=== PATIENT | female | born 1960 | race African-American/Black ===

== ENCOUNTER 2016-05-12 12:38 | Emergency (ER) | payer OTHER, MEDICAID ==
[~2016-05-12] VITALS: Ht 160 cm; Wt 131.1 kg
[~2016-05-12 12:38] MED LIST: ADVAIR 500-501 EACH INH; ALBUTEROL; AMOXICILLIN500 MG ORAL; BACITRACIN-POL1 EACH TOPIC; BACTRIM DS TAB1 EAC1 ORAL; BENAZEPRIL HCL10 MG ORAL; CEPHALEXIN500 MG PO; CYCLOBENZAPRINE10 MG ORAL; DIFLUCAN100 MG ORAL; ENALAPRIL; GLIPIZIDE; HYDROCODON-ACE1 EAC4 ORAL; IBUPROFEN600 MG ORAL; IBUPROFEN800 MG ORAL; KEFLEX500 MG ORAL; METFORMIN; MOTRIN; NORCO 5-325 TA1 EACH PO; NORCO 5/3251 TAB ORAL; PERCOCET 5-3251 EACH PO; PROMETHAZINE-C118 M1 ORAL; PROVENTIL; SEPTRA DS TABL1 EACH PO; SILVADENE CREAM50 GM TOP; SOMA350 MG PO; VICODIN
[2016-05-12 13:00] VITALS: BP 113/60
[2016-05-12] MEDS ORDERED: DuoNeb 0.5-3(2.5)mg/3ml neb HHN ONE (13:00)
[2016-05-12] MEDS ORDERED: NORCO 5-325 TA1 EAC1 ORAL (13:28)
[2016-05-12] MEDS ORDERED: PREDNISONE20 MG ORAL (13:28)
[2016-05-12] MEDS ORDERED: KEFLEX500 MG ORAL (13:28)
[2016-05-12 13:40] VITALS: BP 113/60
--- NOTE | 2016-05-15 21:09 | Emergency Room Report ---
History of Present Illness General Chief Complaint: Dyspnea/Respdistress Source: Patient Present Illness HPI The patient is a 55-year-old female presented after increased cough. The patient reports having prior history of asthma. She reports the previously been on steroids. She denies any fever. She had a nonproductive cough. She denied any shortness of breath. She takes albuterol. She reported having increased nasal congestion. She denied any hemoptysis. She had not been vomiting. Allergies: Coded Allergies: ERYTHROMYCIN BASE (Verified Allergy, Unknown, 11/19/15) Patient History Past Medical History: see triage record Last Menstrual Period: na Reviewed Nursing Documentation: PMH: Agreed, PSxH: Agreed Nursing Documentation-PMH Past Medical History: No History, Except For Hx Hypertension: Yes Hx Asthma: Yes Hx COPD: Yes Hx Diabetes: Yes Hx Neurological Problems: No Hx Cerebrovascular Accident: Yes Review of Systems All Other Systems: negative except mentioned in HPI Physical Exam Vital Signs Date Time Temp Pulse Resp B/P Pulse Ox O2 Delivery O2 Flow Rate FiO2 05/12/16 12:48 98.1 99 32 110/72 96 Room Air 05/12/16 12:50 21 Sp02 EP Interpretation: normal General Appearance: obese Eyes: bilateral eye normal inspection ENT: normal pharynx, uvula midline, other - enlarged tongue Neck: full range of motion, supple Respiratory: chest non-tender, wheezing Cardiovascular #1: normal peripheral pulses, regular rate, rhythm Gastrointestinal: non tender, soft Musculoskeletal: normal inspection, back normal Neurologic: alert, oriented x3, transit planning manager III-XII nml as tested Skin: normal color, no rash, warm/dry Medical Decision Making Diagnostic Impression: Primary Impression: Bronchitis ER Course Patient presented for cough.Differential diagnosis included but was not limited to bronchitis, pneumonia, pulmonary embolism, pericarditis, asthma, foreign body. The chest x-ray one view interpreted by me showed no evidence of pneumonia with normal cardiac size and normal mediastinum. The patient given breathing treatment with albuterol and Atrovent. She had improvement in her cough. The patient did not appear to have evidence of pneumonia. She started on prednisone . The patient is advised to follow up with primary care doctor in 1 -2 days. Patient is advised to return if any worsening condition or if any changes in status that are concerning. Last Vital Signs Date Time Temp Pulse Resp B/P Pulse Ox O2 Delivery O2 Flow Rate FiO2 05/12/16 13:40 98.1 18 113/60 99 Room Air 21 05/12/16 13:15 98 Status: improved Disposition: HOME, SELF-CARE Condition: Stable Scripts Prednisone* (PREDNISONE*) 20 Mg Tablet 40 MG ORAL DAILY, #10 TAB Prov: Ming Rai 05/12/16 Hydrocodone Bit/Acetaminophen 5-325* (NORCO 5-325 TABLET*) 1 Each Tablet 1 TAB ORAL Q4H Y for For Pain, #14 TAB Prov: Ming Rai 05/12/16 Cephalexin* (KEFLEX*) 500 Mg Capsule 500 MG ORAL Q6H, #28 CAP Prov: Ming Rai 05/12/16 Referrals: NON PHYSICIAN (PCP) Patient Instructions: Chronic Obstructive Pulmonary Disease Exacerbation Ming Rai May 15, 2016 21:09
--- NOTE | 2016-05-19 14:56 | Diagnostic Imaging Report ---
Indication: Cough Comparison: 03/16/13 A single view chest radiograph was obtained. Findings: No definite infiltrate or pulmonary vascular congestion identified. The heart is enlarged. The aorta is mildly enlarged consistent with atherosclerotic vascular disease. The bones are osteopenic. Impression: No acute disease
== END 2016-05-12 13:40 | disposition home or self-care (01) ==
LOC: EMR 13:35
DX: J20.9 Acute bronchitis, unspecified (principal); I10 Essential (primary) hypertension; E11.9 Type 2 diabetes mellitus without complications; J44.9 Chronic obstructive pulmonary disease, unspecified; J45.909 Unspecified asthma, uncomplicated; Z86.73 Personal history of transient ischemic attack (TIA), and cerebral infarction without residual deficits
CPT/HCPCS: 71010; 94640; 94664; 99283; J7620

== ENCOUNTER 2016-07-25 20:31 | Emergency (ER) | payer OTHER, MEDICAID ==
[~2016-07-25] VITALS: Ht 160 cm; Wt 127.0 kg
[~2016-07-25 20:31] MED LIST changes: +NORCO 5-325 TA1 EAC1 ORAL; +PREDNISONE20 MG ORAL
[2016-07-25 21:00] VITALS: BP 112/61
[2016-07-25] MEDS ORDERED: HYDROCODON-ACE1 EA15 ORAL (21:06)
--- NOTE | 2016-07-25 21:07 | Emergency Room Report ---
History of Present Illness General Chief Complaint: Pain Source: Patient Present Illness HPI Is a 55-year-old female with a history of diabetes and previous stroke which left her with left-sided weakness. She also has a long-standing history of osteoarthritis. She presents with chief complaint of left knee pain and hip pain. His been ongoing for over a year. She tried gabapentin and Motrin without much relief. Denies any trauma. Denies any fever or chills. Pain is 9 /10. Worse with walking. She try exercising but pain get worse. Denies any other trauma. No fever or chills. Allergies: Coded Allergies: ERYTHROMYCIN BASE (Verified Allergy, Unknown, 11/19/15) Patient History Past Medical History: see triage record, old chart reviewed, DM, COPD, CVA/TIA Past Surgical History: other Pertinent Family History: none Social History: Denies: smoking Now: No Immunizations: other Reviewed Nursing Documentation: PMH: Agreed, PSxH: Agreed Nursing Documentation-PMH Hx Hypertension: Yes Hx Asthma: Yes Hx COPD: Yes Hx Diabetes: Yes Hx Neurological Problems: No Hx Cerebrovascular Accident: Yes Review of Systems Eye: Denies: blurred vision, eye pain ENT: Denies: ear pain, nose congestion, throat swelling Respiratory: Denies: cough, shortness of breath Cardiovascular: Denies: chest pain, palpitations Gastrointestinal: Denies: abdominal pain, diarrhea, nausea, vomiting Musculoskeletal: Reports: joint pain, Denies: back pain Skin: Denies: rash Neurological: Denies: headache, numbness Endocrine: Denies: increased thirst, increased urine Hematologic/Lymphatic: Denies: easy bruising All Other Systems: negative except mentioned in HPI Physical Exam Vital Signs Date Time Temp Pulse Resp B/P Pulse Ox O2 Delivery O2 Flow Rate FiO2 07/25/16 20:40 97.3 88 15 104/51 95 Room Air vitals normal Sp02 EP Interpretation: reviewed, normal General Appearance: well appearing, no apparent distress, alert, obese Head: normocephalic, atraumatic Eyes: bilateral eye EOMI, bilateral eye PERRL ENT: hearing grossly normal, normal pharynx Neck: full range of motion, supple, no meningismus Respiratory: chest non-tender, lungs clear, normal breath sounds Cardiovascular #1: regular rate, rhythm, no murmur Gastrointestinal: normal bowel sounds, non tender, no mass, no organomegaly, no bruit, non-distended Musculoskeletal: back normal, gait/station normal, normal range of motion, other - Left knee with lateral tenderness. No deformity or effusion. Knee is stable. Full range of motion. Psychiatric: mood/affect normal Skin: warm/dry Medical Decision Making Diagnostic Impression: Primary Impression: Osteoarthritis of left knee Qualified Codes: M17.12 - Unilateral primary osteoarthritis, left knee Additional Impression: Morbid obesity with BMI of 45.0-49.9, adult ER Course Patient presents with osteoarthritis of her knee. She would benefit from weight loss. Discussed this with her. She understands. Is no evidence of septic joint or fracture dislocation. No evidence of DVT based on exam. We'll discharge home. Last Vital Signs Date Time Temp Pulse Resp B/P Pulse Ox O2 Delivery O2 Flow Rate FiO2 07/25/16 21:00 97.9 81 16 112/61 98 Room Air Status: improved Disposition: HOME, SELF-CARE Condition: Stable Scripts Hydrocodone/Acetaminophen 5-325* (HYDROCODONE/ACETAMINOPHEN 5-325*) 1 Each Tablet 1 TAB ORAL Q6H Y for For Pain, #30 TAB 0 Refills Prov: FRANKLIN BENAVIDES M.D. 07/25/16 Additional Instructions: Followup your Dr. in 7 days. Recommend weight loss. You may benefit from MRI and or orthopedic consultation. You may need a knee replacement. Return if symptom worsen. FRANKLIN BENAVIDES M.D. Jul 25, 2016 21:07
[2016-07-25 21:13] VITALS: BP 112/61
[2016-07-25] MEDS ORDERED: Norco 5mg/325mg tab ORAL ONE (21:15)
== END 2016-07-25 21:13 | disposition home or self-care (01) ==
LOC: EMR 21:00
DX: M17.12 Unilateral primary osteoarthritis, left knee (principal); E66.01 Morbid (severe) obesity due to excess calories; Z68.42 Body mass index [BMI] 45.0-49.9, adult; G81.94 Hemiplegia, unspecified affecting left nondominant side; M19.90 Unspecified osteoarthritis, unspecified site; M25.559 Pain in unspecified hip; Z88.8 Allergy status to other drugs, medicaments and biological substances; I10 Essential (primary) hypertension; J44.1 Chronic obstructive pulmonary disease with (acute) exacerbation; J45.909 Unspecified asthma, uncomplicated; E11.9 Type 2 diabetes mellitus without complications
CPT/HCPCS: 99283

== ENCOUNTER 2016-09-05 14:13 | Emergency (ER) | payer OTHER, MEDICAID ==
[~2016-09-05] VITALS: Ht 160 cm; Wt 131.1 kg
[~2016-09-05 14:13] MED LIST changes: +HYDROCODON-ACE1 EA15 ORAL
[2016-09-05] MEDS ORDERED: METFORMIN HCL1000 M1 ORAL (14:24)
[2016-09-05] MEDS ORDERED: SYMBICORT 80-10.2 G1 IH (14:24)
[2016-09-05] MEDS ORDERED: GABAPENTIN100 MG ORAL (14:24)
[2016-09-05] MEDS ORDERED: SIMVASTATIN5 MG ORAL (14:24)
[2016-09-05] MEDS ORDERED: Albuterol ud Inhalation HHN ONE (14:30)
[2016-09-05] MEDS ORDERED: Ipratropium 0.02% Inh Soln 2.5ml UD HHN ONE (14:30)
[2016-09-05] MEDS ORDERED: Aspirin Baby 81mg ORAL ONE (14:30)
--- NOTE | 2016-09-05 14:40 | Emergency Room Report ---
History of Present Illness General Chief Complaint: Dyspnea/Respdistress Source: Patient Present Illness HPI Patient is a 56-year-old female presented after increased difficulty breathing. Patient gradual onset of symptoms. Patient prior history of COPD. The patient noted increased productive cough. Patient reported having increased congestion. She reported having a increased sinus pressure. The patient reported having some increased leg swelling. Patient had been taking medications for blood pressure as well as a diuretic. She reported taking her inhalers which had helped intermittently . she denies any current fever Allergies: Coded Allergies: ERYTHROMYCIN BASE (Verified Allergy, Unknown, 11/19/15) Patient History : 7 Para: 7 Reviewed Nursing Documentation: PMH: Agreed, PSxH: Agreed Nursing Documentation-PMH Hx Hypertension: Yes Hx Asthma: Yes Hx COPD: Yes Hx Diabetes: Yes Hx Neurological Problems: No Hx Cerebrovascular Accident: Yes Review of Systems All Other Systems: negative except mentioned in HPI Physical Exam Vital Signs Date Time Temp Pulse Resp B/P Pulse Ox O2 Delivery O2 Flow Rate FiO2 09/05/16 14:16 98.1 88 22 95/66 96 Room Air Sp02 EP Interpretation: reviewed, normal General Appearance: obese Head: atraumatic ENT: normal ENT inspection, hearing grossly normal, normal voice Neck: normal inspection, full range of motion, supple, no bony tend Respiratory: normal inspection, no respiratory distress, no retraction, wheezing Cardiovascular #1: regular rate, rhythm, edema - trace Gastrointestinal: normal inspection, normal bowel sounds, non tender, soft, no guarding, no hernia Genitourinary: no CVA tenderness Musculoskeletal: normal inspection, back normal, normal range of motion Neurologic: normal inspection, alert, oriented x3, responsive, integration analyst III-XII nml as tested, speech normal Psychiatric: normal inspection, judgement/insight normal, mood/affect normal Skin: normal inspection, normal color, no rash Medical Decision Making Diagnostic Impression: Primary Impression: Pneumonia Additional Impression: COPD (chronic obstructive pulmonary disease) ER Course Patient presented for shortness of breath. Differential included but was not limited to anemia, pneumonia, pneumothorax, myocardial infarction, pericardial effusion, congestive heart failure, acidosis. Because of complexity of patient' s case laboratory testing and imaging studies were ordered. EKG interpreted by me showed normal sinus rhythm with a rate of [address] or T wave changes. Labs Test 09/05/16 15:10 White Blood Count 10.0 K/UL (4.8-10.8) Red Blood Count 4.94 M/UL (4.20-5.40) Hemoglobin 13.0 G/DL (12.0-16.0) Hematocrit 42.6 % (37.0-47.0) Mean Corpuscular Volume 86 FL (80-99) Mean Corpuscular Hemoglobin 26.4 PG (27.0-31.0) Mean Corpuscular Hemoglobin Concent 30.6 G/DL (32.0-36.0) Red Cell Distribution Width 14.0 % (11.6-14.8) Platelet Count 298 K/UL (150-450) Mean Platelet Volume 7.9 FL (6.5-10.1) Neutrophils (%) (Auto) 46.8 % (45.0-75.0) Lymphocytes (%) (Auto) 41.4 % (20.0-45.0) Monocytes (%) (Auto) 8.4 % (1.0-10.0) Eosinophils (%) (Auto) 1.9 % (0.0-3.0) Basophils (%) (Auto) 1.6 % (0.0-2.0) D-Dimer 408 ng/mL (<500) Sodium Level 140 mEQ/L (135-145) Potassium Level 4.2 mEQ/L (3.4-4.9) Chloride Level 96 mEQ/L (98-107) Carbon Dioxide Level 30 mEQ/L (20-30) Anion Gap 14 (5-15) Blood Urea Nitrogen 11 mg/dL (7-23) Creatinine 0.8 mg/dL (0.5-0.9) Estimat Glomerular Filtration Rate > 60 mL/min (>60) Glucose Level 294 mg/dL (74-106) Calcium Level 10.1 mg/dL (8.6-10.2) Total Bilirubin 0.2 mg/dL (0.0-1.2) Aspartate Amino Transf (AST/SGOT) 14 U/L (5-40) Alanine Aminotransferase (ALT/SGPT) 16 U/L (3-33) Alkaline Phosphatase 99 U/L (35-104) Total Creatine Kinase 73 U/L (26-140) Creatine Kinase MB 2.3 ng/mL (< 3.8) Creatine Kinase MB Relative Index 3.1 Troponin I < 0.30 ng/mL (<=0.30) Pro-B-Type Natriuretic Peptide 37 pg/mL (0-125) Total Protein 7.2 g/dL (6.6-8.7) Albumin 3.9 g/dL (3.5-5.2) Globulin 3.3 g/dL Albumin/Globulin Ratio 1.1 (1.0-2.7) Last Vital Signs Date Time Temp Pulse Resp B/P Pulse Ox O2 Delivery O2 Flow Rate FiO2 09/05/16 14:16 98.1 88 22 95/66 96 Room Air Status: improved Disposition: HOME, SELF-CARE Condition: Stable Scripts Albuterol Sulfate* (ALBUTEROL SULFATE MDI*) 8.5 Gm Hfa.aer.ad 2 PUFF INH Q6H, #1 EA 0 Refills Prov: Ming Rai 09/05/16 Amoxicillin* (AMOXIL*) 500 Mg Capsule 500 MG ORAL THREE TIMES A DAY, #21 CAP Prov: Ming Rai 09/05/16 Prednisone* (PREDNISONE*) 20 Mg Tablet 40 MG ORAL DAILY, #10 TAB Prov: Ming Rai 09/05/16 Ming Rai September 05, 2016 14:40
[2016-09-05] MEDS ORDERED: Solu-MEDROL 125mg Inj IVP ONE (15:00)
[2016-09-05] MEDS ORDERED: PREDNISONE20 MG ORAL (15:14)
[2016-09-05] MEDS ORDERED: AMOXICILLIN500 MG ORAL (15:14)
[2016-09-05] MEDS ORDERED: cefTRIAXone 1 GM in NS 55 ML IVPB ONE (15:15)
[2016-09-05 15:30] VITALS: BP 106/77
[2016-09-05 15:59] LABS: BASOPHILS % (AUTO) 1.6 % (0.0-2.0); EOSINOPHILS % (AUTO) 1.9 % (0.0-3.0); LYMPHOCYTES % (AUTO) 41.4 % (20.0-45.0); MEAN CORPUSCULAR HEMOGLOBIN 26.4 PG (27.0-31.0); MEAN CORPUSCULAR HGB CONC 30.6 G/DL (32.0-36.0); MEAN CORPUSCULAR VOLUME 86 FL (80-99); MEAN PLATELET VOLUME 7.9 FL (6.5-10.1); MONOCYTES % (AUTO) 8.4 % (1.0-10.0); NEUTROPHILS % (AUTO) 46.8 % (45.0-75.0); PLATELET COUNT 298 K/UL (150-450); RED BLOOD COUNT 4.94 M/UL (4.20-5.40)
[2016-09-05 16:10] LABS: TROPONIN I < 0.30 ng/mL (<=0.30)
[2016-09-05 16:13] LABS: ALANINE AMINOTRANSFERASE 16 U/L (3-33); ALBUMIN/GLOBULIN RATIO 1.1 (1.0-2.7); ANION GAP 14 (5-15); ASPARTATE AMINO TRANSFERASE 14 U/L (5-40); CALCIUM 10.1 mg/dL (8.6-10.2); CARBON DIOXIDE 30 mEQ/L (20-30); CHLORIDE 96 mEQ/L (98-107); CREATININE 0.8 mg/dL (0.5-0.9); GLOMERULAR FILTRATION RATE > 60 mL/min (>60); HEMOLYSIS 26; POTASSIUM 4.2 mEQ/L (3.4-4.9); SODIUM 140 mEQ/L (135-145); TOTAL PROTEIN 7.2 g/dL (6.6-8.7)
[2016-09-05 16:23] LABS: CKMB 2.3 ng/mL (< 3.8)
[2016-09-05 16:30] VITALS: BP 111/63
[2016-09-05] MEDS ORDERED: ALBUTEROL SULF8.5 GM INH (17:08)
[2016-09-05 19:36] VITALS: BP 108/67
--- NOTE | 2016-09-06 11:53 | Diagnostic Imaging Report ---
Indication: Dyspnea Comparison: 05/12/16 A single view chest radiograph was obtained. Findings: There is no change. Cardiomegaly is present. Hilar vessels are prominent without demonstration of overt CHF. Bones are unremarkable. Impression: Cardiomegaly. No acute disease
--- NOTE | 2016-09-07 12:00 | Cardiology Report ---
APPROVED REPORT EKG Measurement Heart [id number] Normal sinus rhythm Nonspecific ST abnormality Abnormal ECG
== END 2016-09-05 17:20 | disposition home or self-care (01) ==
LOC: EMR 17:00
DX: J18.9 Pneumonia, unspecified organism (principal); J44.9 Chronic obstructive pulmonary disease, unspecified; E11.9 Type 2 diabetes mellitus without complications; I10 Essential (primary) hypertension; J45.909 Unspecified asthma, uncomplicated; Z86.73 Personal history of transient ischemic attack (TIA), and cerebral infarction without residual deficits; Z88.1 Allergy status to other antibiotic agents
CPT/HCPCS: 36415; 71010; 80053; 82550; 82553; 83880; 84484; 85025; 85379; 93005; 94640; 94664; 96374; 96375; 99284; J0696; J2930

== ENCOUNTER 2017-02-03 20:50 | Emergency (ER) | payer OTHER, MEDICAID ==
[~2017-02-03] VITALS: Ht 160 cm; Wt 128.4 kg
[~2017-02-03 20:50] MED LIST changes: +ALBUTEROL SULF8.5 GM INH; +GABAPENTIN100 MG ORAL; +METFORMIN HCL1000 M1 ORAL; +SIMVASTATIN5 MG ORAL; +SYMBICORT 80-10.2 G1 IH
[2017-02-03] MEDS ORDERED: Norco 5mg/325mg tab ORAL ONE (21:30)
[2017-02-03] MEDS ORDERED: BACTRIM DS TAB1 EAC1 ORAL (21:33)
[2017-02-03] MEDS ORDERED: MUPIROCIN22 GM TOPIC (21:33)
--- NOTE | 2017-02-03 21:34 | Emergency Room Report ---
History of Present Illness General Chief Complaint: Skin Rash/Abscess Source: Patient Present Illness HPI This is a 56-year-old female who has a history diabetes. She presents with spider bite to her body. Daughter had the same problem. Onset for last 2 days. It is itchy. Redness scattered through her body. Initially on her leg. No fever or chills but no drainage. No nausea no vomiting. Allergies: Coded Allergies: ERYTHROMYCIN BASE (Verified Allergy, Unknown, 11/19/15) Patient History Past Medical History: see triage record, old chart reviewed, DM Past Surgical History: other Pertinent Family History: none Social History: Denies: smoking Now: No Immunizations: other Reviewed Nursing Documentation: PMH: Agreed, PSxH: Agreed Nursing Documentation-PMH Hx Hypertension: Yes Hx Asthma: Yes Hx COPD: Yes Hx Diabetes: Yes Hx Neurological Problems: No Hx Cerebrovascular Accident: Yes Review of Systems Eye: Denies: eye pain, blurred vision ENT: Denies: ear pain, nose congestion, throat swelling Respiratory: Denies: cough, shortness of breath Cardiovascular: Denies: chest pain, palpitations Gastrointestinal: Denies: abdominal pain, diarrhea, nausea, vomiting Musculoskeletal: Denies: back pain, joint pain Skin: Reports: rash Neurological: Denies: headache, numbness Endocrine: Denies: increased thirst, increased urine Hematologic/Lymphatic: Denies: easy bruising All Other Systems: negative except mentioned in HPI Physical Exam Vital Signs Date Time Temp Pulse Resp B/P (MAP) Pulse Ox O2 Delivery O2 Flow Rate FiO2 02/03/17 20:59 97.9 93 16 100/67 95 Room Air vitals normal Sp02 EP Interpretation: reviewed, normal General Appearance: well appearing, no apparent distress, alert Head: normocephalic, atraumatic Eyes: bilateral eye PERRL, bilateral eye EOMI ENT: hearing grossly normal, normal pharynx Neck: full range of motion, supple, no meningismus Respiratory: chest non-tender, lungs clear, normal breath sounds Cardiovascular #1: regular rate, rhythm, no murmur Gastrointestinal: normal bowel sounds, non tender, no mass, no organomegaly, no bruit, non-distended Musculoskeletal: back normal, gait/station normal, normal range of motion Neurologic: alert, oriented x3 Psychiatric: mood/affect normal Skin: warm/dry, rash - Scattered 1-2 cm erythematous lesion mostly on her legs. No drainage. Medical Decision Making Diagnostic Impression: Primary Impression: Cellulitis Qualified Codes: L03.90 - Cellulitis, unspecified ER Course Patient was cellulitis of her skin. Most likely MRSA. No evidence of abscess. We'll discharge home. Last Vital Signs Date Time Temp Pulse Resp B/P (MAP) Pulse Ox O2 Delivery O2 Flow Rate FiO2 02/03/17 20:59 97.9 93 16 100/67 95 Room Air Status: improved Disposition: HOME, SELF-CARE Condition: Stable Scripts Trimethoprim/Sulfamethoxazole 160/800* (BACTRIM DS TABLET*) 1 Each Tablet 1 TAB ORAL Q12H, #14 TAB 0 Refills Prov: FRANKLIN BENAVIDES M.D. 02/03/17 Mupirocin* (MUPIROCIN*) 22 Gm Oint...g. 1 APPLIC TOPIC THREE TIMES A DAY, #22 GM Prov: FRANKLIN BENAVIDES M.D. 02/03/17 Additional Instructions: Followup with your Dr. in 2-3 days. clean area with hydrogen peroxide. Return if symptom worsen. FRANKLIN BENAVIDES M.D. Feb 03, 2017 21:34
[2017-02-03 21:55] VITALS: BP 100/67
== END 2017-02-03 21:56 | disposition home or self-care (01) ==
LOC: EMR 21:33
DX: L03.90 Cellulitis, unspecified (principal); I10 Essential (primary) hypertension; E11.9 Type 2 diabetes mellitus without complications; Z86.73 Personal history of transient ischemic attack (TIA), and cerebral infarction without residual deficits; Z88.1 Allergy status to other antibiotic agents
CPT/HCPCS: 99284

== ENCOUNTER 2017-03-07 23:16 | Emergency (ER) | payer OTHER, MEDICAID ==
[~2017-03-07] VITALS: Ht 160 cm; Wt 128.4 kg
[~2017-03-07 23:16] MED LIST changes: +MUPIROCIN22 GM TOPIC
[2017-03-07 23:31] VITALS: BP 107/77
--- NOTE | 2017-03-08 00:02 | Emergency Room Report ---
History of Present Illness General Chief Complaint: Pain Source: Patient Present Illness HPI This 56-year-old morbidly obese female with PMI a 50. She presents with chief complaint of bilateral knee pain. This is a chronic issue but worse the last few days. She's taken gabapentin and ibuprofen without much relief. No nausea no vomiting. Worse with walking. Pain shooting down her lower leg and up to her hip. No trauma. No fever or chills. No had any diagnostic study. Allergies: Coded Allergies: ERYTHROMYCIN BASE (Verified Allergy, Unknown, 03/07/17) Patient History Past Medical History: see triage record, old chart reviewed, HTN, CVA/TIA Past Surgical History: other Pertinent Family History: none Social History: Denies: smoking Last Menstrual Period: n/a Now: No Immunizations: other Reviewed Nursing Documentation: PMH: Agreed, PSxH: Agreed Nursing Documentation-PMH Past Medical History: No History, Except For Hx Hypertension: Yes Hx Asthma: Yes Hx COPD: Yes Hx Diabetes: Yes Hx Neurological Problems: No Hx Cerebrovascular Accident: Yes Review of Systems Eye: Denies: eye pain, blurred vision ENT: Denies: ear pain, nose congestion, throat swelling Respiratory: Denies: cough, shortness of breath Cardiovascular: Denies: chest pain, palpitations Gastrointestinal: Denies: abdominal pain, diarrhea, nausea, vomiting Musculoskeletal: Reports: joint pain, Denies: back pain Skin: Denies: rash Neurological: Denies: headache, numbness Endocrine: Denies: increased thirst, increased urine Hematologic/Lymphatic: Denies: easy bruising All Other Systems: negative except mentioned in HPI Physical Exam Vital Signs Date Time Temp Pulse Resp B/P (MAP) Pulse Ox O2 Delivery O2 Flow Rate FiO2 03/07/17 23:22 97.7 86 16 107/77 96 Room Air vitals normal Sp02 EP Interpretation: reviewed, normal General Appearance: well appearing, no apparent distress, alert, obese Head: normocephalic, atraumatic Eyes: bilateral eye PERRL, bilateral eye EOMI ENT: hearing grossly normal, normal pharynx Neck: full range of motion, supple, no meningismus Respiratory: chest non-tender, lungs clear, normal breath sounds Cardiovascular #1: regular rate, rhythm, no murmur Gastrointestinal: normal bowel sounds, non tender, no mass, no organomegaly, no bruit, non-distended Musculoskeletal: back normal, gait/station normal, normal range of motion, other - Tenderness to b/l knees. no deformity. Psychiatric: mood/affect normal Skin: warm/dry Medical Decision Making Diagnostic Impression: Primary Impression: Osteoarthritis of knees, bilateral Qualified Codes: M17.0 - Bilateral primary osteoarthritis of knee ER Course She presents with bilateral knee pain secondary to osteoarthritis. She may benefit from weight loss in physical therapy. May benefit from cortisone injection. No evidence of septic joint. No evidence of DVT or Jaquez's cyst. We'll discharge home. Other X-Ray Diagnostic Results Other X-Ray Diagnostic Results : X-Ray ordered: Left knee x-rays # of Views/Limited Vs Complete: 4 View Indication: Pain EP Interpretation: Yes Interpretation: no dislocation, no soft tissue swelling, no fractures Impression: No acute disease Electronically Signed by: Electronically signed by Shawn Guerra MD Last Vital Signs Date Time Temp Pulse Resp B/P (MAP) Pulse Ox O2 Delivery O2 Flow Rate FiO2 03/07/17 23:31 97.7 86 16 107/77 96 Room Air Status: improved Disposition: HOME, SELF-CARE Condition: Stable Scripts Hydrocodone/Acetaminophen 5-325* (HYDROCODONE/ACETAMINOPHEN 5-325*) 1 Each Tablet 1 TAB ORAL Q6H Y for For Pain, #30 TAB 0 Refills Prov: SHAWN GUERRA M.D. 03/08/17 Referrals: NOT CHOSEN IVELISSE/,REFERRING (PCP) Additional Instructions: Followup with your DrNoble in 7 days. Return if symptom worsen. SHAWN GUERRA M.D. Mar 08, 2017 00:02
[2017-03-08] MEDS ORDERED: HYDROCODON-ACE1 EA15 ORAL (00:46)
[2017-03-08 00:50] VITALS: BP 107/77
--- NOTE | 2017-03-08 12:00 | Diagnostic Imaging Report ---
Indication: Pain 3 views of the left knee were obtained. Findings: No acute fracture, malalignment, or joint effusion are identified. Joint space is relatively well-maintained. Impression: Negative for acute injury
== END 2017-03-08 00:51 | disposition home or self-care (01) ==
LOC: EMR 23:55
DX: M17.0 Bilateral primary osteoarthritis of knee (principal); Z88.1 Allergy status to other antibiotic agents; I10 Essential (primary) hypertension; Z86.73 Personal history of transient ischemic attack (TIA), and cerebral infarction without residual deficits; J45.909 Unspecified asthma, uncomplicated; J44.9 Chronic obstructive pulmonary disease, unspecified; E11.9 Type 2 diabetes mellitus without complications; E66.01 Morbid (severe) obesity due to excess calories; Z68.43 Body mass index [BMI] 50.0-59.9, adult
CPT/HCPCS: 99283

== ENCOUNTER 2017-03-26 16:15 | Emergency (ER) | payer OTHER, MEDICAID ==
[~2017-03-26] VITALS: Ht 160 cm; Wt 122.5 kg
[2017-03-26] MEDS ORDERED: Albuterol/Ipratropium 3ml neb HHN ONE (16:30)
--- NOTE | 2017-03-26 16:36 | Emergency Room Report ---
History of Present Illness General Chief Complaint: Upper Respiratory Illness Source: Patient Present Illness HPI Patient is a 56-year-old female who presented after increased difficulty breathing. Patient had gradual onset of symptoms. Patient had reports a prior history of asthma. She reports being last hospitalized in 2012. She reports having a previous episodes of steroid use. The patient stated that she had been having increased cough with productive sputum. She does reports having some eye redness to right leg after a bite. Allergies: Coded Allergies: ERYTHROMYCIN BASE (Verified Allergy, Unknown, 03/07/17) Patient History Past Medical History: see triage record, asthma Reviewed Nursing Documentation: PMH: Agreed, PSxH: Agreed Nursing Documentation-PMH Hx Hypertension: Yes Hx Asthma: Yes Hx COPD: Yes Hx Diabetes: Yes Hx Neurological Problems: No Hx Cerebrovascular Accident: Yes Review of Systems All Other Systems: negative except mentioned in HPI Physical Exam Vital Signs Date Time Temp Pulse Resp B/P (MAP) Pulse Ox O2 Delivery O2 Flow Rate FiO2 03/26/17 16:21 97.2 99 20 120/87 99 Room Air Sp02 EP Interpretation: reviewed, normal General Appearance: normal inspection, well appearing, alert, GCS 15 Head: atraumatic ENT: normal ENT inspection, hearing grossly normal, normal voice Neck: normal inspection, full range of motion, supple, no bony tend Respiratory: normal inspection, no retraction, wheezing Cardiovascular #1: regular rate, rhythm, no edema Gastrointestinal: normal inspection, normal bowel sounds, non tender, soft, no guarding, no hernia Genitourinary: no CVA tenderness Musculoskeletal: normal inspection, back normal, normal range of motion Neurologic: normal inspection, alert, responsive, speech normal Psychiatric: normal inspection, judgement/insight normal, mood/affect normal Skin: normal inspection, no rash, other - erythematous patch to right leg at medial calf Medical Decision Making Diagnostic Impression: Primary Impression: Asthma exacerbation ER Course Patient presented for shortness of breath. Differential included but was not limited to anemia, pneumonia, pneumothorax, myocardial infarction, pericardial effusion, congestive heart failure, acidosis. Because of complexity of patient' s case laboratory testing and imaging studies were ordered.The patient was given IM Decadron and breathing treatments with improvement. The patient's left leg appears to have some evidence of cellulitis and patient was started on antibiotics by mouth. The patient stated she felt better she was offered admission but stated she wanted to go home. The patient is advised to follow up with primary care doctor in 1-2 days. Patient is advised to return if any worsening condition or if any changes in status that are concerning. Last Vital Signs Date Time Temp Pulse Resp B/P (MAP) Pulse Ox O2 Delivery O2 Flow Rate FiO2 03/26/17 16:21 97.2 99 20 120/87 99 Room Air Status: improved Disposition: HOME, SELF-CARE Condition: Stable Scripts Cephalexin* (KEFLEX*) 500 Mg Capsule 500 MG ORAL Q6H, #28 CAP 0 Refills Prov: Ming Rai 03/26/17 Ming Rai Mar 26, 2017 16:36
[2017-03-26 16:45] VITALS: BP 101/56
[2017-03-26] MEDS ORDERED: Cephalexin 500mg cap ORAL ONE (18:45)
[2017-03-26] MEDS ORDERED: Acetaminophen 500mg (ES) tab ORAL ONE (18:45)
[2017-03-26] MEDS ORDERED: Dexamethasone 4mg/ml vial IM ONE (19:00)
[2017-03-26] MEDS ORDERED: KEFLEX500 MG ORAL (19:13)
[2017-03-26 19:24] VITALS: BP 101/56
--- NOTE | 2017-03-27 10:37 | Diagnostic Imaging Report ---
Indication: Shortness of breath Technique: XRAY CHEST 1 V Comparison: 09/05/16 Findings: Cardiomediastinal silhouette is stable. There is no gross consolidation or pleural effusion. Osseous structures are stable. Impression: No obvious acute cardiopulmonary disease.
== END 2017-03-26 19:30 | disposition home or self-care (01) ==
LOC: EMR 19:27
DX: J45.901 Unspecified asthma with (acute) exacerbation (principal); J44.9 Chronic obstructive pulmonary disease, unspecified; E11.9 Type 2 diabetes mellitus without complications; I10 Essential (primary) hypertension; Z86.73 Personal history of transient ischemic attack (TIA), and cerebral infarction without residual deficits; Z88.1 Allergy status to other antibiotic agents
CPT/HCPCS: 71010; 94640; 94664; 96372; 99283; J1100; J7620

== ENCOUNTER 2017-05-12 15:34 | Emergency (ER) | payer OTHER, MEDICAID ==
[~2017-05-12] VITALS: Ht 162.6 cm; Wt 126.1 kg
[2017-05-12] MEDS ORDERED: Ipratropium 0.02% Inh Soln 2.5ml UD HHN ONE (16:00)
[2017-05-12] MEDS ORDERED: Albuterol ud Inhalation HHN ONE (16:00)
[2017-05-12] MEDS ORDERED: Norco 5mg/325mg tab ORAL ONE (16:45)
[2017-05-12] MEDS ORDERED: PREDNISONE20 MG ORAL (17:38)
[2017-05-12] MEDS ORDERED: PROMETHAZINE-D118 ML ORAL (17:38)
[2017-05-12] MEDS ORDERED: NORCO 5-325 TA1 EACH ORAL (17:38)
[2017-05-12] MEDS ORDERED: AMOXICILLIN500 MG ORAL (17:38)
[2017-05-12 17:45] VITALS: BP 123/66
[2017-05-12 17:54] VITALS: BP 123/66
--- NOTE | 2017-05-13 12:02 | Diagnostic Imaging Report ---
Indication: Cough Comparison: 03/26/2017 A single view chest radiograph was obtained. Findings: Pulmonary vascularity is prominent as is heart size. Mild interstitial densities may be present. Bones are unremarkable IMPRESSION: Probable mild interstitial edema. Please correlate clinically
--- NOTE | 2017-05-13 13:08 | Emergency Room Report ---
History of Present Illness General Chief Complaint: Flu Like Symptoms Source: Patient Present Illness HPI 56-year-old female presents ED complaining of body aches, cough x3 days. States she has pain in her right-sided chest and back with coughing. Cough is productive of greenish phlegm. Notes chills. Denies fever. Has history of COPD. Denies sick contacts or recent travel. No other aggravating relieving factors. Denies any other associated symptoms Allergies: Coded Allergies: ERYTHROMYCIN BASE (Verified Allergy, Unknown, 03/07/17) Patient History Past Medical History: HTN, asthma, COPD Past Surgical History: none Pertinent Family History: none Social History: Denies: smoking, alcohol use, drug use Now: No Immunizations: UTD Reviewed Nursing Documentation: PMH: Agreed, PSxH: Agreed Nursing Documentation-PMH Hx Hypertension: Yes Hx Asthma: Yes Hx COPD: Yes Hx Diabetes: Yes Hx Neurological Problems: No Hx Cerebrovascular Accident: Yes Review of Systems All Other Systems: negative except mentioned in HPI Physical Exam Vital Signs Date Time Temp Pulse Resp B/P (MAP) Pulse Ox O2 Delivery O2 Flow Rate FiO2 05/12/17 15:43 98.2 92 20 123/66 99 Room Air 05/12/17 16:26 21 Sp02 EP Interpretation: reviewed, normal General Appearance: obese Head: normocephalic Eyes: bilateral eye normal inspection, bilateral eye PERRL ENT: normal ENT inspection Neck: normal inspection Respiratory: wheezing Cardiovascular #1: regular rate, rhythm, no edema Gastrointestinal: normal inspection Rectal: deferred Genitourinary: no CVA tenderness Musculoskeletal: normal inspection Neurologic: alert, oriented x3, responsive, motor strength/tone normal, sensory intact, speech normal Psychiatric: normal inspection Skin: normal inspection Lymphatic: normal inspection Medical Decision Making Diagnostic Impression: Primary Impression: COPD (chronic obstructive pulmonary disease) Qualified Codes: J44.9 - Chronic obstructive pulmonary disease, unspecified ER Course Hospital Course 56-year-old female presents to ED complaining of cough, wheezing Differential diagnoses include: URI, bronchitis, asthma/COPD, pneumonia Clinical course Patient placed on stretcher. After initial history and physical I ordered prednisone and nebulizer treatment. Chest x-ray shows interstitial changes, questionable pneumonia Upon reassessment patient states cough and symptoms have improved. Given history of COPD will prescribe antibiotic Diagnosis - COPD Stable and discharged home with prescriptions for Rx amoxicillin, prednisone, promethazine, [place]. Instructed to followup with PMD. Return to ED if symptoms recur or worsen Chest X-Ray Diagnostic Results Chest X-Ray Diagnostic Results : Chest X-Ray Ordered: Yes # of Views/Limited/Complete: 1 View Indication: Other - cough EP Interpretation: Yes Interpretation: no pneumothorax, no acute cardiopulmonary disease, other - interstitial edema Impression: Other - interstitial edema/ ?PNA Electronically Signed by: Electronically signed by Rohit Thomas MD Last Vital Signs Date Time Temp Pulse Resp B/P (MAP) Pulse Ox O2 Delivery O2 Flow Rate FiO2 05/12/17 17:54 98.2 75 16 123/66 96 Room Air 21 Status: improved Disposition: HOME, SELF-CARE Condition: Stable Scripts D-Methorphan Hb/Prometh Hcl* (PROMETHAZINE-DM SYRUP*) 118 Ml Syrup 5 ML ORAL Q6H Y for For Cough, #118 ML 0 Refills Prov: ROHIT THOMAS M.D. 05/12/17 Amoxicillin* (AMOXIL*) 500 Mg Capsule 500 MG ORAL THREE TIMES A DAY, #21 CAP Prov: ROHIT THOMAS M.D. 05/12/17 Prednisone* (PREDNISONE*) 20 Mg Tablet 40 MG ORAL DAILY, #10 TAB Prov: ROHIT THOMAS M.D. 05/12/17 Hydrocodone Bit/Acetaminophen 5-325* (NORCO 5-325*) 1 Each Tablet 1 TAB ORAL Q6H Y for For Pain, #10 TAB 0 Refills Prov: ROHIT THOMAS M.D. 05/12/17 Referrals: NON PHYSICIAN (PCP) Patient Instructions: Community-Acquired Pneumonia, Adult, [id number] ROHIT THOMAS M.D. May 13, 2017 13:08
== END 2017-05-12 17:54 | disposition home or self-care (01) ==
LOC: EMR 17:54
DX: J44.9 Chronic obstructive pulmonary disease, unspecified (principal); I10 Essential (primary) hypertension; E11.9 Type 2 diabetes mellitus without complications; Z86.73 Personal history of transient ischemic attack (TIA), and cerebral infarction without residual deficits; Z88.1 Allergy status to other antibiotic agents
CPT/HCPCS: 71045; 94640; 94664; 99284; J7512

== ENCOUNTER 2017-09-04 11:22 | Emergency (ER) | payer OTHER, MEDICAID ==
[~2017-09-04] VITALS: Ht 160 cm; Wt 122.9 kg
[~2017-09-04 11:22] MED LIST changes: +NORCO 5-325 TA1 EACH ORAL; +PROMETHAZINE-D118 ML ORAL
[2017-09-04] MEDS ORDERED: traMADol 50mg tab ORAL ONE (11:45)
[2017-09-04] MEDS ORDERED: Cephalexin 500mg cap ORAL ONE (11:45)
[2017-09-04 11:53] VITALS: BP 157/103
[2017-09-04] MEDS ORDERED: NORCO 5-325 TA1 EACH ORAL (12:35)
[2017-09-04] MEDS ORDERED: CEPHALEXIN500 MG ORAL (12:35)
[2017-09-04 12:50] VITALS: BP 149/96
--- NOTE | 2017-09-06 14:58 | Emergency Room Report ---
History of Present Illness General Chief Complaint: General Complaint Source: Patient, Medical Record Present Illness HPI 57-year-old female presents ED complaining of pain and swelling to right thumb 2 days. Denies trauma. States symptoms started after she received a pedicure and had acrylic nails placed. Pain is throbbing, 10 out of 10, nonradiating. No other aggravating relieving factors. Denies any other associated symptoms Allergies: Coded Allergies: ERYTHROMYCIN BASE (Verified Allergy, Unknown, 03/07/17) Patient History Past Medical History: DM, HTN, asthma, COPD Past Surgical History: none Pertinent Family History: none Social History: Denies: smoking, alcohol use, drug use Now: No Immunizations: UTD Reviewed Nursing Documentation: PMH: Agreed; PSxH: Agreed Nursing Documentation-PMH Past Medical History: No History, Except For Hx Hypertension: Yes Hx Asthma: Yes Hx COPD: Yes Hx Diabetes: Yes Hx Neurological Problems: No Hx Cerebrovascular Accident: Yes Hx Seizures: Yes Review of Systems All Other Systems: negative except mentioned in HPI Physical Exam Vital Signs Date Time Temp Pulse Resp B/P (MAP) Pulse Ox O2 Delivery O2 Flow Rate FiO2 09/04/17 11:24 98.0 84 20 157/103 94 Room Air 98.1 Sp02 EP Interpretation: reviewed, normal General Appearance: no apparent distress, alert, GCS 15, non-toxic Head: normocephalic, atraumatic Eyes: bilateral eye normal inspection, bilateral eye PERRL ENT: hearing grossly normal, normal pharynx, no angioedema, normal voice Neck: full range of motion, supple/symm/no masses Respiratory: chest non-tender, lungs clear, normal breath sounds, speaking full sentences Cardiovascular #1: regular rate, rhythm, no edema Cardiovascular #2: 2+ carotid (R), 2+ carotid (L), 2+ radial (R), 2+ radial (L) , 2+ dorsalis pedis (R), 2+ dorsalis pedis (L) Gastrointestinal: normal bowel sounds, non tender, soft, non-distended, no guarding, no rebound Rectal: deferred Genitourinary: normal inspection, no CVA tenderness Musculoskeletal: back normal, gait/station normal, normal range of motion, swelling - R thumb Neurologic: alert, oriented x3, responsive, motor strength/tone normal, sensory intact, speech normal Psychiatric: judgement/insight normal, memory normal, mood/affect normal, no suicidal/homicidal ideation Reflexes: 3+ bicep (R), 3+ bicep (L), 3+ tricep (R), 3+ tricep (L), 3+ knee (R) , 3+ knee (L) Skin: normal color, no rash, warm/dry, well hydrated Lymphatic: no adenopathy Medical Decision Making Diagnostic Impression: Primary Impression: Cellulitis of thumb Qualified Codes: L03.011 - Cellulitis of right finger ER Course Hospital Course 57-year-old female presents to ED with pain/swelling to R thumb Differential diagnoses include: Cellulitis, dermatitis, insect bite, abscess Clinical course Patient placed on stretcher. After initial history, physical exam reveals a female in no acute distress. On exam there is some swelling noted to the right thumb compared to the left thumb. There is an acrylic nail attached. There is no evidence of paronychia. No evidence of felon. Minimal warmth compared to rest of hand Discussed findings with patient. I offered to remove the acrylic nail to further evaluate and patient declined stating that she just got them and if required she will have her nail salon remove the acrylic We'll discharge and antibiotics. Pain meds given here. No indication for I and D at this time Diagnosis - cellulitis of thumb stable and discharged to home with prescription for [place], Keflex. Instructed to followup with PMD. Instructed return to ED if symptoms recur or worsen Last Vital Signs Date Time Temp Pulse Resp B/P (MAP) Pulse Ox O2 Delivery O2 Flow Rate FiO2 09/04/17 12:50 98.0 20 149/96 94 Room Air 98.0 09/04/17 11:24 84 Status: improved Disposition: HOME, SELF-CARE Condition: Stable Scripts Hydrocodone Bit/Acetaminophen 5-325* (NORCO 5-325*) 1 Each Tablet 1 TAB ORAL Q6H PRN for For Pain, #10 TAB 0 Refills Prov: Rohit Thomas MD 09/04/17 Cephalexin* (KEFLEX*) 500 Mg Capsule 500 MG ORAL EVERY 6 HOURS for 7 Days, CAP Prov: Rohit Thomas MD 09/04/17 Patient Instructions: Cellulitis, [id number] Rohit Thomas MD September 06, 2017 14:58
== END 2017-09-04 12:51 | disposition home or self-care (01) ==
LOC: EMR 11:40
DX: L03.011 Cellulitis of right finger (principal); I10 Essential (primary) hypertension; E11.9 Type 2 diabetes mellitus without complications; J44.9 Chronic obstructive pulmonary disease, unspecified; Z86.73 Personal history of transient ischemic attack (TIA), and cerebral infarction without residual deficits
CPT/HCPCS: 99283

== ENCOUNTER 2017-10-22 00:14 | Emergency (ER) | payer OTHER, MEDICAID ==
[~2017-10-22] VITALS: Ht 160 cm; Wt 127.9 kg
[~2017-10-22 00:14] MED LIST changes: +CEPHALEXIN500 MG ORAL
--- NOTE | 2017-10-22 01:03 | Emergency Room Report ---
History of Present Illness General Chief Complaint: Eye Problems Source: Patient Present Illness HPI 57-year-old female with history of hypertension, diabetes, hyper cholesterolemia , asthma, presents with 3 days of nasal congestion and mucus production as well as bilateral eye redness and itching with yellowish greenish discharge. She reports no fevers, no visual complaints, just reports a lot of mucus production and drainage. She is not draining medications for symptoms. She does report she gets severe allergies regularly. Allergies: Coded Allergies: ERYTHROMYCIN BASE (Verified Allergy, Unknown, 10/22/17) Patient History Past Medical History: see triage record Last Menstrual Period: unk Reviewed Nursing Documentation: PMH: Agreed; PSxH: Agreed Nursing Documentation-PMH Past Medical History: No History, Except For Hx Hypertension: Yes Hx Asthma: Yes Hx COPD: Yes Hx Diabetes: Yes - dm2 Hx Neurological Problems: No Hx Cerebrovascular Accident: Yes - left sided deficit Hx Seizures: Yes Review of Systems All Other Systems: negative except mentioned in HPI Physical Exam Vital Signs Date Time Temp Pulse Resp B/P (MAP) Pulse Ox O2 Delivery O2 Flow Rate FiO2 10/22/17 00:25 97.9 88 16 98/62 93 Room Air 97.9 Sp02 EP Interpretation: reviewed, normal General Appearance: no apparent distress, alert, non-toxic Head: normocephalic Eyes: bilateral eye normal inspection, bilateral eye PERRL, bilateral eye EOMI , bilateral eye Scleral Injection ENT: normal ENT inspection, hearing grossly normal, normal pharynx, no angioedema, normal voice, moist mucus membranes, nasal congestion Neck: normal inspection, full range of motion, supple, supple/symm/no masses Respiratory: chest non-tender, lungs clear, normal breath sounds, chest symmetrical, palpation of chest normal Cardiovascular #1: normal peripheral pulses, regular rate, rhythm, edema - 1+ B /L LE edema to mid tibias Cardiovascular #2: 2+ radial (R), 2+ radial (L), 2+ dorsalis pedis (R), 2+ dorsalis pedis (L) Gastrointestinal: normal inspection, non tender, soft, no mass, no guarding, no rebound Rectal: deferred Genitourinary: normal inspection, no CVA tenderness Musculoskeletal: back normal, gait/station normal, normal range of motion, non- tender, no calf tenderness Neurologic: alert, responsive, waste hand III-XII nml as tested, motor strength/tone normal, sensory intact, speech normal Psychiatric: judgement/insight normal, memory normal, mood/affect normal, no suicidal/homicidal ideation Skin: normal color, no rash, warm/dry, normal turgor Lymphatic: no adenopathy Medical Decision Making Diagnostic Impression: Primary Impression: Allergic conjunctivitis and rhinitis ER Course Patient with signs and symptoms as well as examination findings consistent with allergic conjunctivae some rhinitis, will be given allergy eyedrops as well as intranasal steroids, recommend follow-up with PMD in 1 week Last Vital Signs Date Time Temp Pulse Resp B/P (MAP) Pulse Ox O2 Delivery O2 Flow Rate FiO2 10/22/17 00:25 97.9 88 16 98/62 93 Room Air 97.9 Disposition: HOME, SELF-CARE Condition: Stable CHRISTIAN SUAZO M.D Oct 22, 2017 01:03
[2017-10-22 01:06] VITALS: BP 98/62
[2017-10-22] MEDS ORDERED: PATANOL1 DROP BOTH EYES (01:07)
[2017-10-22] MEDS ORDERED: NASACORT10.8 ML NS (01:07)
== END 2017-10-22 01:10 | disposition home or self-care (01) ==
LOC: EMR 00:48
DX: H10.13 Acute atopic conjunctivitis, bilateral (principal); J30.9 Allergic rhinitis, unspecified; J44.9 Chronic obstructive pulmonary disease, unspecified; Z88.1 Allergy status to other antibiotic agents; I10 Essential (primary) hypertension; E11.9 Type 2 diabetes mellitus without complications; I69.398 Other sequelae of cerebral infarction
CPT/HCPCS: 99282

== ENCOUNTER 2017-12-03 00:18 | Emergency (ER) | payer OTHER, MEDICAID ==
[~2017-12-03] VITALS: Ht 160 cm; Wt 126.1 kg
[~2017-12-03 00:18] MED LIST changes: +NASACORT10.8 ML NS; +PATANOL1 DROP BOTH EYES
[2017-12-03] MEDS: Albuterol ud Inhalation HHN SCH ×3 (00:41→01:14)
[2017-12-03] MEDS: Ipratropium 0.02% Inh Soln 2.5ml UD HHN SCH ×3 (00:41→01:13)
[2017-12-03] MEDS ORDERED: PROMETHAZINE-C118 M1 ORAL (02:06)
[2017-12-03] MEDS ORDERED: ALBUTEROL SULF8.5 GM INH (02:06)
[2017-12-03] MEDS ORDERED: TYLENOL COLD H1 EAC4 PO (02:06)
[2017-12-03] MEDS ORDERED: PREDNISONE20 MG ORAL (02:06)
[2017-12-03 02:07] VITALS: BP 130/45
[2017-12-03] MEDS ORDERED: ALBUTEROL2.5 MG/3 M INH (02:17)
[2017-12-03 02:19] VITALS: BP 130/45
--- NOTE | 2017-12-03 03:29 | Emergency Room Report ---
History of Present Illness General Chief Complaint: Asthma Source: Patient Present Illness HPI 57-year-old female presents ED complaining of cough and wheezing 1 day. History of asthma. States cough is dry. Patient states she has sore throat and earache. Pain is dull, 7 out of 10, nonradiating. Afebrile. Also states she feels very congested. Denies sick contacts or recent travel. No other aggravating relieving factors. Denies any other associated symptoms Allergies: Coded Allergies: ERYTHROMYCIN BASE (Verified Allergy, Unknown, 10/22/17) Patient History Past Medical History: DM, HTN, asthma, COPD, CVA/TIA, seizures Pertinent Family History: none Social History: Denies: smoking, alcohol use, drug use Last Menstrual Period: None Now: No Immunizations: UTD Reviewed Nursing Documentation: PMH: Agreed; PSxH: Agreed Nursing Documentation-PMH Hx Hypertension: Yes Hx Asthma: Yes Hx COPD: Yes Hx Diabetes: Yes - dm2 Hx Neurological Problems: No Hx Cerebrovascular Accident: Yes - left sided deficit Hx Seizures: Yes Review of Systems All Other Systems: negative except mentioned in HPI Physical Exam Vital Signs Date Time Temp Pulse Resp B/P (MAP) Pulse Ox O2 Delivery O2 Flow Rate FiO2 12/03/17 00:23 98.8 90 20 119/76 96 Room Air 98.8 Sp02 EP Interpretation: reviewed, normal General Appearance: no apparent distress, alert, GCS 15, non-toxic, obese Head: normocephalic, atraumatic Eyes: bilateral eye normal inspection, bilateral eye PERRL ENT: hearing grossly normal, normal pharynx, no angioedema, normal voice, other - bilateral TM cerumen impaction Neck: full range of motion, supple/symm/no masses Respiratory: chest non-tender, speaking full sentences, wheezing Cardiovascular #1: regular rate, rhythm, no edema Cardiovascular #2: 2+ carotid (R), 2+ carotid (L), 2+ radial (R), 2+ radial (L) , 2+ dorsalis pedis (R), 2+ dorsalis pedis (L) Gastrointestinal: normal bowel sounds, non tender, soft, non-distended, no guarding, no rebound Rectal: deferred Genitourinary: normal inspection, no CVA tenderness Musculoskeletal: back normal, gait/station normal, normal range of motion, non- tender Neurologic: alert, oriented x3, responsive, motor strength/tone normal, sensory intact, speech normal Psychiatric: judgement/insight normal, memory normal, mood/affect normal, no suicidal/homicidal ideation Reflexes: 3+ bicep (R), 3+ bicep (L), 3+ tricep (R), 3+ tricep (L), 3+ knee (R) , 3+ knee (L) Skin: normal color, no rash, warm/dry, well hydrated Lymphatic: no adenopathy Medical Decision Making Diagnostic Impression: Primary Impression: Upper respiratory infection Qualified Codes: J06.9 - Acute upper respiratory infection, unspecified Additional Impression: Asthma attack Qualified Codes: J45.901 - Unspecified asthma with (acute) exacerbation ER Course Hospital Course 57-year-old female presents to ED complaining of cough, wheezing Differential diagnoses include: URI, bronchitis, asthma/COPD, pneumonia Clinical course Patient placed on stretcher. After initial history, physical exam reveals a middle aged female in no acute distress. Bilateral TM cerumen impaction. No pharyngeal erythema. No tonsillar exudates. No lymphadenopathy. Mild wheezing noted on exam, no signs of respiratory distress or retractions. Patient given Prednisone and albuterol treatment in ED with symptoms improved. Reassurance given Diagnosis - URI, asthhma attack Stable and discharged home with prescriptions for albuterol, prednisone, promethazine/codeine, tylenol multisymptom. Instructed to followup with PMD. Return to ED if symptoms recur or worsen Last Vital Signs Date Time Temp Pulse Resp B/P (MAP) Pulse Ox O2 Delivery O2 Flow Rate FiO2 12/03/17 02:19 97.9 106 15 130/45 95 Room Air 97.9 Status: improved Disposition: HOME, SELF-CARE Condition: Stable Scripts Albuterol Sulfate* (ALBUTEROL SULFATE HHN*) 2.5 Mg/3 Ml Vial.neb 3 ML INH Q6H PRN for Shortness of Breath, #30 EA 0 Refills Prov: Rohit Thomas MD 12/03/17 Albuterol Sulfate* (ALBUTEROL SULFATE MDI*) 8.5 Gm Hfa.aer.ad 2 PUFF INH Q6H, #1 EA 0 Refills Prov: Rohit Thomas MD 12/03/17 Prednisone* (PREDNISONE*) 20 Mg Tablet 40 MG ORAL DAILY, #10 TAB Prov: Rohit Thomas MD 12/03/17 Codeine/Promethazine Hcl* (PROMETHAZINE-CODEINE SYRUP*) 118 Ml Syrup 5 ML ORAL Q6H PRN for For Cough, #118 ML 0 Refills Prov: Rohit Thomas MD 12/03/17 Guaifen/Phenyleph/Acetaminophn (Tylenol Cold Head Congest Cplt) 1 Each Tablet 1 EACH PO Q6HR, #30 TAB Prov: Rohit Thomas MD 12/03/17 Patient Instructions: Asthma, Adult Rohit Thomas MD Dec 03, 2017 03:29
== END 2017-12-03 02:21 | disposition home or self-care (01) ==
LOC: EMR 01:00
DX: J45.909 Unspecified asthma, uncomplicated (principal); J06.9 Acute upper respiratory infection, unspecified; E11.9 Type 2 diabetes mellitus without complications; I10 Essential (primary) hypertension; J44.9 Chronic obstructive pulmonary disease, unspecified; Z86.73 Personal history of transient ischemic attack (TIA), and cerebral infarction without residual deficits; Z88.1 Allergy status to other antibiotic agents
CPT/HCPCS: 94640; 94664; 99284; J7512

== ENCOUNTER 2018-08-30 20:15 | Emergency (ER) | payer OTHER, MEDICAID ==
[~2018-08-30] VITALS: Ht 160 cm; Wt 127.0 kg
[~2018-08-30 20:15] MED LIST changes: +ALBUTEROL2.5 MG/3 M INH; +TYLENOL COLD H1 EAC4 PO
[2018-08-30] MEDS ORDERED: Albuterol/Ipratropium 3ml neb HHN SCH (20:30)
[2018-08-30] MEDS ORDERED: Solu-MEDROL 125mg Inj IVP ONE (20:45)
[2018-08-30] MEDS ORDERED: Ipratropium 0.02% Inh Soln 2.5ml UD HHN ONE (20:45)
[2018-08-30 20:50] VITALS: BP 119/67
--- NOTE | 2018-08-30 20:50 | NUR ---
ED Nurse Note: RT at the bedside.
[2018-08-30] MEDS: Albuterol ud Inhalation HHN SCH ×3 (20:54→21:19)
--- NOTE | 2018-08-30 20:56 | NUR ---
ED Nurse Note: pt walked in c/o sob, asthma attack, and pain on back and behind lung per pt statement, pt reports it started last night but worsen today. Noted audible wheezing and also to auscultation. pt airway intact, skin warm and dry, vss, will cont monitor. daughter at the bedside.
[2018-08-30] MEDS ORDERED: HYDROcodone/Acetamin 5/325 tab ORAL ONE (21:00)
[2018-08-30 21:26] LABS: BASOPHILS % (AUTO) 1.7 % (0.0-2.0); EOSINOPHILS % (AUTO) 1.5 % (0.0-3.0); HEMATOCRIT 40.5 % (37.0-47.0); HEMOGLOBIN 12.9 G/DL (12.0-16.0); LYMPHOCYTES % (AUTO) 25.3 % (20.0-45.0); MEAN CORPUSCULAR VOLUME 84 FL (80-99); MONOCYTES % (AUTO) 5.5 % (1.0-10.0); PLATELET COUNT 310 K/UL (150-450); RED BLOOD COUNT 4.81 M/UL (4.20-5.40); RED CELL DISTRIBUTION WIDTH 12.9 % (11.6-14.8); WHITE BLOOD COUNT 12.8 K/UL (4.8-10.8)
[2018-08-30 21:40] LABS: ANION GAP 5 mmol/L (5-15); BLOOD UREA NITROGEN 14 mg/dL (7-18); CALCIUM 9.5 MG/DL (8.5-10.1); CARBON DIOXIDE 33 MMOL/L (21-32); CHLORIDE 100 MMOL/L (98-107); POTASSIUM 3.8 MMOL/L (3.5-5.1); SODIUM 138 MMOL/L (136-145)
[2018-08-30 21:52] LABS: ALANINE AMINOTRANSFERASE 39 U/L (12-78); ALBUMIN 3.6 G/DL (3.4-5.0); ALBUMIN/GLOBULIN RATIO 0.8 (1.0-2.7); ALKALINE PHOSPHATASE 108 U/L (46-116); ASPARTATE AMINO TRANSFERASE 12 U/L (15-37); BILIRUBIN,TOTAL 0.2 MG/DL (0.2-1.0); CREATINE KINASE 67 U/L (26-308)
--- NOTE | 2018-08-30 22:25 | Emergency Room Report ---
History of Present Illness General Chief Complaint: Asthma Source: Patient Present Illness HPI Patient presents with several days of increased wheezing and cough. She denies any fevers or chills. She also has some left flank pain that's positional and worsened with cough. In the past she's been on prednisone but she's not taking any this time. This is not her worst attack but is fairly severe. She also has some chest discomfort with coughing. There is no color to the phlegm. No palpitations, nausea, vomiting, diarrhea, dysuria, depression, visual changes , headache. She has not been admitted to the hospital for her asthma. She does not feel she has to be admitted at this time. Allergies: Coded Allergies: ERYTHROMYCIN BASE (Verified Allergy, Unknown, 10/22/17) Patient History Past Medical History: see triage record Pertinent Family History: other - Sarcoidosis Social History: Denies: smoking Social History Narrative from home Last Menstrual Period: 2013 Now: No Reviewed Nursing Documentation: PMH: Agreed; PSxH: Agreed Nursing Documentation-PMH Past Medical History: No History, Except For Hx Hypertension: Yes Hx Asthma: Yes Hx COPD: Yes Hx Diabetes: Yes - dm2 Hx Neurological Problems: No Hx Cerebrovascular Accident: Yes - left sided deficit Hx Seizures: Yes Review of Systems All Other Systems: negative except mentioned in HPI Physical Exam Vital Signs Date Time Temp Pulse Resp B/P (MAP) Pulse Ox O2 Delivery O2 Flow Rate FiO2 08/30/18 20:20 98.8 96 22 106/64 91 Room Air 08/30/18 20:54 21 Sp02 EP Interpretation: reviewed, abnormal - Interpreted as low by me General Appearance: well appearing, no apparent distress, GCS 15 Head: normocephalic Eyes: bilateral eye normal inspection, bilateral eye PERRL ENT: moist mucus membranes Neck: supple Respiratory: no respiratory distress, no retraction, no accessory muscle use, wheezing, expiration, inspiration Cardiovascular #1: regular rate, rhythm, no edema Cardiovascular #2: 2+ radial (R) Gastrointestinal: normal inspection, normal bowel sounds, non tender, no mass, non-distended, overweight Musculoskeletal: gait/station normal, normal range of motion, no calf tenderness, Sofie's Sign negative, other - Left flank lower chest tenderness to palpation and with movement Neurologic: alert, oriented x3, grossly normal Psychiatric: mood/affect normal Skin: normal inspection, warm/dry Medical Decision Making Diagnostic Impression: Primary Impression: Asthma Qualified Codes: J45.41 - Moderate persistent asthma with (acute) exacerbation Additional Impressions: Chest pain Qualified Codes: R07.1 - Chest pain on breathing Flank pain ER Course Patient presents with cough and wheezing that is fairly severe. Differential includes acute myocardial infarction, COPD exacerbation, bronchitis, pneumonia amongst others. There is no clinical evidence of pulmonary embolus. Evaluation with EKG, chest x-ray and labs. The patient will be treated with breathing treatments and Solu-Medrol. In addition she will be given analgesia for the pain. EKG without injury, chest x-ray with COPD and prominent nodularity in the prakash bilaterally. Labs unremarkable. Troponin negative. BNP negative. Patient states that she is somewhat shaky but doing better. Exercised and better. Insists on going home. Discussed x-ray results. She was quite concerned. Is a family history of sarcoidosis. She was then advised to follow-up with her doctor to undergo a CAT scan of her chest. Patient stable for outpatient observation and treatment Laboratory Tests Test 08/30/18 20:49 White Blood Count 12.8 K/UL (4.8-10.8) H Red Blood Count 4.81 M/UL (4.20-5.40) Hemoglobin 12.9 G/DL (12.0-16.0) Hematocrit 40.5 % (37.0-47.0) Mean Corpuscular Volume 84 FL (80-99) Mean Corpuscular Hemoglobin 26.9 PG (27.0-31.0) L Mean Corpuscular Hemoglobin Concent 31.9 G/DL (32.0-36.0) L Red Cell Distribution Width 12.9 % (11.6-14.8) Platelet Count 310 K/UL (150-450) Mean Platelet Volume 6.7 FL (6.5-10.1) Neutrophils (%) (Auto) 66.0 % (45.0-75.0) Lymphocytes (%) (Auto) 25.3 % (20.0-45.0) Monocytes (%) (Auto) 5.5 % (1.0-10.0) Eosinophils (%) (Auto) 1.5 % (0.0-3.0) Basophils (%) (Auto) 1.7 % (0.0-2.0) Sodium Level 138 MMOL/L (136-145) Potassium Level 3.8 MMOL/L (3.5-5.1) Chloride Level 100 MMOL/L (98-107) Carbon Dioxide Level 33 MMOL/L (21-32) H Anion Gap 5 mmol/L (5-15) Blood Urea Nitrogen 14 mg/dL (7-18) Creatinine 1.0 MG/DL (0.55-1.30) Estimate Glomerular Filtration Rate > 60 mL/min (>60) Glucose Level 271 MG/DL (74-106) H Calcium Level 9.5 MG/DL (8.5-10.1) Total Bilirubin 0.2 MG/DL (0.2-1.0) Aspartate Amino Transferase (AST) 12 U/L (15-37) L Alanine Aminotransferase (ALT) 39 U/L (12-78) Alkaline Phosphatase 108 U/L (46-116) Total Creatine Kinase 67 U/L (26-308) Troponin I 0.000 ng/mL (0.000-0.056) Pro-B-Type Natriuretic Peptide 22 pg/mL (0-125) Total Protein 8.2 G/DL (6.4-8.2) Albumin 3.6 G/DL (3.4-5.0) Globulin 4.6 g/dL Albumin/Globulin Ratio 0.8 (1.0-2.7) L EKG Diagnostic Results Rate: normal Rhythm: NSR ST Segments: no acute changes Rhythm Strip Diag. Results EP Interpretation: yes Rhythm: NSR, no PVC's, no ectopy Chest X-Ray Diagnostic Results Chest X-Ray Diagnostic Results : Chest X-Ray Ordered: Yes # of Views/Limited/Complete: 1 View Indication: Other EP Interpretation: Yes Interpretation: no effusion, no pneumothorax, other - increased lantigua Impression: Other Electronically Signed by: Electronically signed by Alejandro Sinclair MD Last Vital Signs Date Time Temp Pulse Resp B/P (MAP) Pulse Ox O2 Delivery O2 Flow Rate FiO2 08/30/18 23:00 97.2 84 20 132/87 99 Room Air 08/30/18 21:58 21 Status: improved Disposition: HOME, SELF-CARE Condition: Improved Scripts Hydrocodone Bit/Acetaminophen 5-325* (NORCO 5-325*) 1 Each Tablet 1 TAB ORAL Q6H PRN for For Pain, #10 TAB 0 Refills Prov: Alejandro Sinclair MD 08/30/18 Benzonatate* (TESSALON PERLE*) 100 Mg Capsule 100 MG ORAL THREE TIMES A DAY, #20 PERLE Prov: Alejandro Sinclair MD 08/30/18 Prednisone* (PREDNISONE*) 20 Mg Tablet 40 MG ORAL DAILY, #10 TAB Prov: Alejandro Sinclair MD 08/30/18 Alejandro Sinclair MD Aug 30, 2018 22:25
[2018-08-30] MEDS ORDERED: NORCO 5-325 TA1 EACH ORAL (22:37)
[2018-08-30] MEDS ORDERED: TESSALON PERLE100 MG ORAL (22:37)
[2018-08-30] MEDS ORDERED: PREDNISONE20 MG ORAL (22:37)
--- NOTE | 2018-08-30 22:59 | NUR ---
ED Nurse Note: pt cleared to be d/c per ERMD, pt discharge and aftercare instruction provided w/ prescription, pt education done via discussion and handout, pt advised to follow up with pcp or return to ed if changes in condition, Pt verbalized understanding and agrees with plan, pt vss, resp even and unlabored on RA, left w/ all belongings, accompanied by daughter, ID band and IV removed.
[2018-08-30 23:00] VITALS: BP 132/87
--- NOTE | 2018-08-31 11:13 | Diagnostic Imaging Report ---
Indication: Chest pain Technique: One view of the chest Comparison: 05/12/2017 Findings: Body habitus limits evaluation. There are very questionable mild interstitial congestive changes noted. The heart is borderline enlarged. No focal airspace consolidation. Pleural spaces are grossly clear Impression: . Questionable mild interstitial congestive changes, similar to the previous study of 05/12/2017. Correlate with clinical findings
--- NOTE | 2018-09-01 14:24 | Cardiology Report ---
APPROVED REPORT EKG Measurement Heart [id number] Normal sinus rhythm T wave abnormality, consider lateral ischemia Abnormal ECG
== END 2018-08-30 23:00 | disposition home or self-care (01) ==
LOC: EMR 20:40
DX: J45.41 Moderate persistent asthma with (acute) exacerbation (principal); R07.1 Chest pain on breathing; R10.9 Unspecified abdominal pain; R05 Cough; Z88.8 Allergy status to other drugs, medicaments and biological substances; I10 Essential (primary) hypertension; J44.9 Chronic obstructive pulmonary disease, unspecified; E11.9 Type 2 diabetes mellitus without complications; G81.94 Hemiplegia, unspecified affecting left nondominant side; G40.909 Epilepsy, unspecified, not intractable, without status epilepticus
CPT/HCPCS: 36415; 71045; 80053; 82550; 83880; 84484; 85025; 93005; 94640; 94664; 96374; 99284; J2930; J7620

== ENCOUNTER 2018-09-30 22:39 | Inpatient (IN) | payer MEDICARE, MEDICAID ==
[~2018-09-30] VITALS: Ht 160 cm; Wt 133.8 kg
[~2018-09-30 22:39] MED LIST changes: +TESSALON PERLE100 MG ORAL
[2018-09-30 22:56] VITALS: BP 100/73
--- NOTE | 2018-09-30 22:57 | Emergency Room Report ---
History of Present Illness General Chief Complaint: Asthma Source: Patient Present Illness HPI Patient presents with complaints of asthma exacerbation cough congestion Patient also reports increased swelling in both of her legs everything starting fairly recently over the past 2 days Denies any chest pain Denies any vomiting or diarrhea denies any recent travel Patient takes blood pressure medicine and diabetes medication however denies any diuretics Allergies: Coded Allergies: ERYTHROMYCIN BASE (Verified Allergy, Severe, Shortness of Breath, 10/01/18) Per pt, states that she got "short of breath and spread out in hives" Patient History Past Medical History: see triage record Pertinent Family History: none Last Menstrual Period: Now: No : 7 Para: 7 Reviewed Nursing Documentation: PMH: Agreed; PSxH: Agreed Nursing Documentation-PMH Hx Hypertension: Yes Hx Asthma: Yes Hx COPD: No - sleep apnea Hx Diabetes: Yes Hx Neurological Problems: Yes - fibromyalgia Hx Cerebrovascular Accident: Yes - left sided deficit Hx Seizures: Yes Review of Systems All Other Systems: negative except mentioned in HPI Physical Exam Vital Signs Date Time Temp Pulse Resp B/P (MAP) Pulse Ox O2 Delivery O2 Flow Rate FiO2 09/30/18 22:41 97.9 90 20 100/73 (82) 94 Room Air Sp02 EP Interpretation: reviewed, normal General Appearance: well appearing, no apparent distress Head: normocephalic, atraumatic Eyes: bilateral eye PERRL, bilateral eye EOMI ENT: hearing grossly normal, normal pharynx, TMs + canals normal, uvula midline Neck: full range of motion, supple, no meningismus, no bony tend Respiratory: no respiratory distress, no retraction, no accessory muscle use, wheezing Cardiovascular #1: normal peripheral pulses, regular rate, rhythm, no edema, no gallop, no JVD, no murmur Gastrointestinal: normal bowel sounds, non tender, soft, no mass, no organomegaly, non-distended, no guarding, no hernia, no pulsatile mass, no rebound Genitourinary: no CVA tenderness Musculoskeletal: normal inspection Neurologic: oriented x3, responsive, kiln tender III-XII nml as tested, motor strength/ tone normal, sensory intact Psychiatric: mood/affect normal Skin: other - Dependent edema bilaterally Lymphatic: normal inspection, no adenopathy Medical Decision Making Diagnostic Impression: Primary Impression: Pneumonia Additional Impression: Asthma attack ER Course Patient is a fairly complex patient with multiple differential to consideration including but not limited to cardiac cardiopulmonary and vascular emergencies Patient required breathing treatments X-ray imaging shows concerning findings for patchy infiltrates Blood cultures were obtained and antibiotics initiated Patient does feel significantly improved given her comorbidities secondary asthma she will require further inpatient care Labs Test 09/30/18 23:10 10/01/18 07:00 White Blood Count 13.1 K/UL (4.8-10.8) 11.4 K/UL (4.8-10.8) Red Blood Count 4.91 M/UL (4.20-5.40) 4.86 M/UL (4.20-5.40) Hemoglobin 13.2 G/DL (12.0-16.0) 13.1 G/DL (12.0-16.0) Hematocrit 39.2 % (37.0-47.0) 41.4 % (37.0-47.0) Mean Corpuscular Volume 80 FL (80-99) 85 FL (80-99) Mean Corpuscular Hemoglobin 26.8 PG (27.0-31.0) 26.9 PG (27.0-31.0) Mean Corpuscular Hemoglobin Concent 33.5 G/DL (32.0-36.0) 31.6 G/DL (32.0-36.0) Red Cell Distribution Width 13.0 % (11.6-14.8) 13.9 % (11.6-14.8) Platelet Count 312 K/UL (150-450) 285 K/UL (150-450) Mean Platelet Volume 6.3 FL (6.5-10.1) 7.2 FL (6.5-10.1) Neutrophils (%) (Auto) 53.0 % (45.0-75.0) 54.6 % (45.0-75.0) Lymphocytes (%) (Auto) 35.1 % (20.0-45.0) 34.0 % (20.0-45.0) Monocytes (%) (Auto) 8.6 % (1.0-10.0) 7.8 % (1.0-10.0) Eosinophils (%) (Auto) 2.1 % (0.0-3.0) 2.0 % (0.0-3.0) Basophils (%) (Auto) 1.2 % (0.0-2.0) 1.5 % (0.0-2.0) Sodium Level 138 MMOL/L (136-145) 140 MMOL/L (136-145) Potassium Level 4.0 MMOL/L (3.5-5.1) 3.9 MMOL/L (3.5-5.1) Chloride Level 100 MMOL/L (98-107) 102 MMOL/L (98-107) Carbon Dioxide Level 33 MMOL/L (21-32) 31 MMOL/L (21-32) Anion Gap 5 mmol/L (5-15) 7 mmol/L (5-15) Blood Urea Nitrogen 12 mg/dL (7-18) 13 mg/dL (7-18) Creatinine 0.9 MG/DL (0.55-1.30) 1.0 MG/DL (0.55-1.30) Estimat Glomerular Filtration Rate > 60 mL/min (>60) > 60 mL/min (>60) Glucose Level 184 MG/DL (74-106) 266 MG/DL (74-106) Calcium Level 9.8 MG/DL (8.5-10.1) 9.4 MG/DL (8.5-10.1) Total Bilirubin 0.2 MG/DL (0.2-1.0) 0.1 MG/DL (0.2-1.0) Aspartate Amino Transf (AST/SGOT) 15 U/L (15-37) 12 U/L (15-37) Alanine Aminotransferase (ALT/SGPT) 36 U/L (12-78) 31 U/L (12-78) Alkaline Phosphatase 105 U/L (46-116) 106 U/L (46-116) Total Creatine Kinase 56 U/L (26-308) Creatine Kinase MB 1.1 NG/ML (0.0-3.6) Creatine Kinase MB Relative Index 1.9 Troponin I 0.000 ng/mL (0.000-0.056) 0.000 ng/mL (0.000-0.056) Pro-B-Type Natriuretic Peptide 6 pg/mL (0-125) Total Protein 7.7 G/DL (6.4-8.2) 7.6 G/DL (6.4-8.2) Albumin 3.4 G/DL (3.4-5.0) 3.3 G/DL (3.4-5.0) Globulin 4.3 g/dL 4.3 g/dL Albumin/Globulin Ratio 0.8 (1.0-2.7) 0.8 (1.0-2.7) Lipase 320 U/L (73-393) Hemoglobin A1c 10.7 % (4.3-6.0) Triglycerides Level 170 MG/DL (30-150) Cholesterol Level 171 MG/DL (< 200) LDL Cholesterol 113 mg/dL (<100) HDL Cholesterol 32 MG/DL (40-60) Cholesterol/HDL Ratio 5.3 (3.3-4.4) EKG Diagnostic Results Rate: normal Rhythm: NSR ST Segments: no acute changes Rhythm Strip Diag. Results EP Interpretation: yes Rate: 77 Rhythm: NSR, no PVC's, no ectopy Chest X-Ray Diagnostic Results Chest X-Ray Diagnostic Results : Chest X-Ray Ordered: Yes # of Views/Limited/Complete: 1 View Indication: Shortness of Breath EP Interpretation: Yes Interpretation: no effusion, no pneumothorax, other - Bilateral patchy infiltrate Impression: Other - Bilateral patchy infiltrates Electronically Signed by: Cuba Valencia DO Last Vital Signs Date Time Temp Pulse Resp B/P (MAP) Pulse Ox O2 Delivery O2 Flow Rate FiO2 09/30/18 22:41 97.9 90 20 100/73 (82) 94 Room Air Status: improved Disposition: ADMITTED INPATIENT Condition: Serious Cuba Valencia DO September 30, 2018 22:57
[2018-09-30] MEDS ORDERED: Albuterol ud Inhalation HHN ONE (23:00)
[2018-09-30] MEDS ORDERED: Ipratropium 0.02% Inh Soln 2.5ml UD HHN ONE (23:00)
--- NOTE | 2018-09-30 23:10 | NUR ---
ED Nurse Note: Patient walkled in to ER c/o astma exacerbation and bilateral lower extremity pain and swelling. AAO x4, VSS at this time, skin is dry warm to touch. RT by bed side.
--- NOTE | 2018-09-30 23:18 | Diagnostic Imaging Report ---
EXAM: XR Chest, 1 View CLINICAL HISTORY: CP TECHNIQUE: Frontal view of the chest. COMPARISON: No relevant prior studies available. FINDINGS: Limited technique Lungs: Reduced lung volumes with probably mild patchy bilateral infiltrates. Pleural space: Unremarkable. No pneumothorax. Heart: Cardiomegaly. Mediastinum: Unremarkable. Bones/joints: No acute fracture. IMPRESSION: Reduced lung volumes with probably mild patchy bilateral infiltrates.
[2018-09-30 23:22] LABS: BASOPHILS % (AUTO) 1.2 % (0.0-2.0); EOSINOPHILS % (AUTO) 2.1 % (0.0-3.0); HEMATOCRIT 39.2 % (37.0-47.0); HEMOGLOBIN 13.2 G/DL (12.0-16.0); LYMPHOCYTES % (AUTO) 35.1 % (20.0-45.0); MEAN CORPUSCULAR VOLUME 80 FL (80-99); MONOCYTES % (AUTO) 8.6 % (1.0-10.0); PLATELET COUNT 312 K/UL (150-450); RED BLOOD COUNT 4.91 M/UL (4.20-5.40); WHITE BLOOD COUNT 13.1 K/UL (4.8-10.8)
[2018-09-30 23:37] LABS: ANION GAP 5 mmol/L (5-15); BLOOD UREA NITROGEN 12 mg/dL (7-18); CALCIUM 9.8 MG/DL (8.5-10.1); CARBON DIOXIDE 33 MMOL/L (21-32); CHLORIDE 100 MMOL/L (98-107); CREATININE 0.9 MG/DL (0.55-1.30); SODIUM 138 MMOL/L (136-145)
[2018-09-30 23:52] LABS: ALANINE AMINOTRANSFERASE 36 U/L (12-78); ALBUMIN 3.4 G/DL (3.4-5.0); ALBUMIN/GLOBULIN RATIO 0.8 (1.0-2.7); ALKALINE PHOSPHATASE 105 U/L (46-116); ASPARTATE AMINO TRANSFERASE 15 U/L (15-37); BILIRUBIN,TOTAL 0.2 MG/DL (0.2-1.0); CKMB 1.1 NG/ML (0.0-3.6); CREATINE KINASE 56 U/L (26-308)
[2018-10-01] MEDS ORDERED: cefTRIAXone 1 GM in NS 55 ML IVPB ONE ×2
--- NOTE | 2018-10-01 00:59 | NUR ---
NURSE NOTES: Received pt from ELIO Bocanegra. Called and left a message with Dr. Yee regarding admission orders. Awaiting pts arrival to floor.
[2018-10-01] MEDS ORDERED: Promethazine/Codeine 5ml UD ORAL ONE (01:15)
[2018-10-01] MEDS ORDERED: Albuterol ud Inhalation HHN ONE (01:15)
[2018-10-01 01:20] VITALS: BP 100/73
--- NOTE | 2018-10-01 01:20 | NUR ---
ED Nurse Note: Patient was admited to TELE due to dispnea, chf. AAO x4, VSS at this time, skin dry, intact. Patient was transfered via gurney by ACLS protocol with all belongings.
[2018-10-01 01:45] VITALS: BP 118/68
--- NOTE | 2018-10-01 03:10 | NUR ---
NURSE NOTES: Received the following orders from Dr. Yee: - [place] 10 PRN Q4 - Tylenol 650 mg PRN Q4 - oxygen therapy - cardiac diet - phenergan with codeine - breathing tx Q4 scheduled proventil - lasix 40 mg iv daily - rocephin 2gm daily - 2d echo - troponin, hgb a1c, cbc, cmp, lipid panel - Heparin 5000 U Q12 - protonix 40 mg daily Also informed Dr. Yee that pt uses CPAP at night but doesnt remember setting. Awaiting call back. Patients med recon wasnt correct. Pt takes the following meds at home: - Metformin - Benazepril - symvastatin - gabapentin - glipizide - benadryl - trulicity once weekly on mondays Pt does not know correct dosages by heart so will endorse to next shift to enter it when dosages are known. Pt is aware that someone from home needs to bring meds. Will continue to monitor.
[2018-10-01] MEDS: Albuterol ud Inhalation HHN SCH ×4 (03:59→14:00)
[2018-10-01] MEDS: HYDROcodone/Acetamin 10/325 tab ORAL PRN ×4 (04:11→21:02)
[2018-10-01] MEDS: Promethazine/Codeine 5ml UD ORAL PRN ×2 (04:12→21:03)
--- NOTE | 2018-10-01 07:49 | NUR ---
HAND-OFF: Report given to ELIO Cm. Pt stable.
[2018-10-01 08:00] VITALS: BP 109/61
--- NOTE | 2018-10-01 08:03 | History & Physical ---
History and Physical History & Physicial Dict # [id number] Melody Yee MD Oct 01, 2018 08:03
--- NOTE | 2018-10-01 08:04 | General Progress Note ---
Assessment/Plan Assessment/Plan: 1- Asthma exacerbation 2- CHF exacerbation - possible dx Plan: Pulmonary - Dr Pena Cardio- Dr Nelson consulted and notified Subjective Allergies: Coded Allergies: ERYTHROMYCIN BASE (Verified Allergy, Unknown, 10/22/17) Objective Last 24 Hour Vital Signs Date Time Temp Pulse Resp B/P (MAP) Pulse Ox O2 Delivery O2 Flow Rate FiO2 10/01/18 04:09 96 Nasal Cannula 2.0 28 10/01/18 04:09 88 20 98 Nasal Cannula 2.0 28 10/01/18 04:00 92 10/01/18 03:59 87 22 93 Room Air 21 10/01/18 02:19 Nasal Cannula 2.0 10/01/18 01:45 97.7 91 118/68 (85) 93 10/01/18 01:32 91 10/01/18 01:20 97.9 18 100/73 100 Room Air 21 10/01/18 01:20 97.9 18 100/73 100 Room Air 21 10/01/18 01:17 90 18 100 Room Air 21 10/01/18 01:10 89 18 98 Room Air 21 09/30/18 23:11 88 18 99 Room Air 21 09/30/18 23:00 83 18 97 Room Air 21 09/30/18 23:00 83 18 97 Room Air 21 09/30/18 22:56 97.9 20 100/73 94 Room Air 09/30/18 22:56 90 20 Room Air 09/30/18 22:41 97.9 90 20 100/73 (82) 94 Room Air Laboratory Tests 09/30/18 23:10: White Blood Count 13.1H, Red Blood Count 4.91, Hemoglobin 13.2, Hematocrit 39.2 , Mean Corpuscular Volume 80, Mean Corpuscular Hemoglobin 26.8L, Mean Corpuscular Hemoglobin Concent 33.5, Red Cell Distribution Width 13.0, Platelet Count 312, Mean Platelet Volume 6.3L, Neutrophils (%) (Auto) 53.0, Lymphocytes ( %) (Auto) 35.1, Monocytes (%) (Auto) 8.6, Eosinophils (%) (Auto) 2.1, Basophils (%) (Auto) 1.2, Sodium Level 138, Potassium Level 4.0, Chloride Level 100, Carbon Dioxide Level 33H, Anion Gap 5, Blood Urea Nitrogen 12, Creatinine 0.9, Estimat Glomerular Filtration Rate > 60, Glucose Level 184H, Calcium Level 9.8, Total Bilirubin 0.2, Aspartate Amino Transf (AST/SGOT) 15, Alanine Aminotransferase (ALT/SGPT) 36, Alkaline Phosphatase 105, Total Creatine Kinase 56, Creatine Kinase MB 1.1, Creatine Kinase MB Relative Index 1.9, Troponin I 0.000, Pro-B-Type Natriuretic Peptide 6, Total Protein 7.7, Albumin 3.4, Globulin 4.3, Albumin/Globulin Ratio 0.8L, Lipase 320 10/01/18 07:00: White Blood Count [Pending], Red Blood Count [Pending], Hemoglobin [Pending], Hematocrit [Pending], Mean Corpuscular Volume [Pending], Mean Corpuscular Hemoglobin [Pending], Mean Corpuscular Hemoglobin Concent [Pending], Red Cell Distribution Width [Pending], Platelet Count [Pending], Mean Platelet Volume [ Pending], Neutrophils (%) (Auto) [Pending], Lymphocytes (%) (Auto) [Pending], Monocytes (%) (Auto) [Pending], Eosinophils (%) (Auto) [Pending], Basophils (%) (Auto) [Pending], Sodium Level [Pending], Potassium Level [Pending], Chloride Level [Pending], Carbon Dioxide Level [Pending], Blood Urea Nitrogen [Pending], Creatinine [Pending], Estimat Glomerular Filtration Rate [Pending], Glucose Level [Pending], Calcium Level [Pending], Total Bilirubin [Pending], Aspartate Amino Transf (AST/SGOT) [Pending], Alanine Aminotransferase (ALT/SGPT) [Pending] , Alkaline Phosphatase [Pending], Troponin I [Pending], Total Protein [Pending] , Albumin [Pending], Globulin [Pending], Hemoglobin A1c [Pending], Triglycerides Level [Pending], Cholesterol Level [Pending], LDL Cholesterol [ Pending], HDL Cholesterol [Pending], Cholesterol/HDL Ratio [Pending] Height (Feet): 5 Height (Inches): 3.00 Weight (Pounds): 287 Melody Yee MD Oct 01, 2018 08:04
[2018-10-01 08:11] LABS: BASOPHILS % (AUTO) 1.5 % (0.0-2.0); HEMATOCRIT 41.4 % (37.0-47.0); HEMOGLOBIN 13.1 G/DL (12.0-16.0); MEAN CORPUSCULAR VOLUME 85 FL (80-99); MONOCYTES % (AUTO) 7.8 % (1.0-10.0); NEUTROPHILS % (AUTO) 54.6 % (45.0-75.0); PLATELET COUNT 285 K/UL (150-450); RED BLOOD COUNT 4.86 M/UL (4.20-5.40); RED CELL DISTRIBUTION WIDTH 13.9 % (11.6-14.8); WHITE BLOOD COUNT 11.4 K/UL (4.8-10.8)
--- NOTE | 2018-10-01 08:15 | NUR ---
RESPIRATORY NOTE: CPAP has been set up for pt to use QHS. will determine CPAP settings when pt wants to use machine. pt currently on 2L NC. she is in no apparent resp distress at this time. will cont to monitor and cont to follow order. Addendum: 10/01/18 at 0817 by MARLENY HOUGH RT bipap is plugged into a red outlet in current room.
[2018-10-01 08:19] LABS: ALANINE AMINOTRANSFERASE 31 U/L (12-78); ALBUMIN 3.3 G/DL (3.4-5.0); ALBUMIN/GLOBULIN RATIO 0.8 (1.0-2.7); ALKALINE PHOSPHATASE 106 U/L (46-116); ANION GAP 7 mmol/L (5-15); ASPARTATE AMINO TRANSFERASE 12 U/L (15-37); BILIRUBIN,TOTAL 0.1 MG/DL (0.2-1.0); BLOOD UREA NITROGEN 13 mg/dL (7-18); CALCIUM 9.4 MG/DL (8.5-10.1); CARBON DIOXIDE 31 MMOL/L (21-32); CHLORIDE 102 MMOL/L (98-107); CHOLESTEROL 171 MG/DL (< 200); HDL CHOLESTEROL 32 MG/DL (40-60); POTASSIUM 3.9 MMOL/L (3.5-5.1); SODIUM 140 MMOL/L (136-145); TRIGLYCERIDES 170 MG/DL (30-150)
--- NOTE | 2018-10-01 08:22 | NUR ---
NURSE NOTES: Received patient awake, alert, verbally responsive. Complains of mild headache. Will give prn pain meds. IV intact to right hand. with no signs of infection noted. on 02 at 3L. Denies any SOB/respi distress at this time. will cont. to monitor.
[2018-10-01] MEDS: Heparin 5000 units/ml inj SUBQ SCH ×2 (08:42→20:46)
--- NOTE | 2018-10-01 09:30 | History and Physical Report ---
DATE OF ADMISSION: 10/01/2018 SOURCE OF INFORMATION: The patient and EMR. HISTORY OF PRESENT ILLNESS: The patient is a 58-year-old female with a history of shortness of breath and worsening of the edema in the lower extremity, presented to the hospital. The patient denies any chest pain. Positive for shortness of breath. Denies nausea, vomiting, diarrhea, or constipation. Denies productive cough. Denies fever or chills. ALLERGIES: Erythromycin. PAST SURGICAL HISTORY: and adenoid removal. SOCIAL HISTORY: The patient denies history of illicit drug abuse, smoking, or alcohol abuse. The patient has 7 children. FAMILY HISTORY: Reviewed and noncontributory. PAST MEDICAL HISTORY: Asthma, diabetes, hyperlipidemia. CURRENT HOSPITAL MEDICATIONS: Including but not limited to ceftriaxone, Lasix, Protonix. PHYSICAL EXAMINATION: VITAL SIGNS: Blood pressure 100/70, temperature 98.2, pulse oximetry 94% on room air, pulse rate of 90. HEENT: Atraumatic and normocephalic. CHEST: Diffuse bronchial breathing sounds. Mild diffuse wheezing. MUSCULOSKELETAL: No gross lateralized motor deficit. Positive for 2+ pitting edema in the lower extremity. NEUROLOGY: Awake, alert, and oriented x3. ABDOMEN: Soft. No organomegaly. Morbidly obese. LABORATORY DATA: Labs dated September 30, WBC 13.1, hemoglobin 13.2, platelet of 312. Sodium 138, potassium 4, BUN 12, and creatinine 0.9. Troponin x1 negative. IMAGING: Chest x-ray dated September 30, 2018 shows bilateral patchy infiltrates. ASSESSMENT: 1. Asthma exacerbation. 2. Pulmonary edema in conjunction with lower extremity edema, likely secondary to new onset heart failure. 3. Morbid obesity. 4. Diabetes type 2. 5. GI and DVT prophylaxis. PLAN OF CARE: We will start with empiric antibiotic regimens for the upper respiratory tract infection. We will obtain 2D echo. Breathing treatments. Continue with the sliding scale insulin. Diuresis. Pulmonary and Cardiology have been consulted and notified. Melody Yee M.D. DR: Maria Teresa JOB#: [id number] CC:
[2018-10-01] MEDS: NovoLOG Insulin Flexpen SUBQ SCH ×4 (11:30→20:45)
[2018-10-01 12:00] VITALS: BP 109/76
[2018-10-01] MEDS: cefTRIAXone 2 GM in D5W 55 ML IVPB SCH (12:52)
--- NOTE | 2018-10-01 13:49 | NUR ---
CASE MANAGEMENT: INITIAL REVIEW 10/01/2018 58 YO F PRESENTED TO OUR ED FROM HOME CC: ASTHMA PMHx: HTN. ASTHMA. DM. FIBROMYALGIA. CVA. SZ. SI:DYSPNEA. CHF EXACERBATION. T 97.9 HR 90 RR 20 B/P 100/73 SATS 94% ON RA WBC 13.1 CO2 33 GLU 184 IS: DUONEB HHN X1 LASIX IV X1 CEFTRIAXONE IV X1 PATIENT ADMITTED TO TELE 10/01/2018 @ 0018 DCP: PATIENT TO BE DISCHARGED TO HOME ONCE MEDICALLY CLEARED. PLAN OF CARE: obtain 2D echo. Breathing treatments. sliding scale insulin. Diuresis. Pulmonary and Cardiology have been consulted
--- NOTE | 2018-10-01 14:11 | Cardiology Progress Note ---
Assessment/Plan Assessment/Plan The patient is seen and examined, full consult note will be dictated shortly. Objective Last 24 Hour Vital Signs Date Time Temp Pulse Resp B/P (MAP) Pulse Ox O2 Delivery O2 Flow Rate FiO2 10/01/18 14:08 92 20 98 Nasal Cannula 2.0 28 10/01/18 14:02 92 20 95 Nasal Cannula 2.0 28 10/01/18 12:00 98.5 83 109/76 (87) 94 10/01/18 12:00 97.8 83 109/76 (87) 93 10/01/18 12:00 88 10/01/18 11:18 78 20 97 Nasal Cannula 2.0 28 10/01/18 11:11 72 20 94 Nasal Cannula 2.0 28 10/01/18 09:00 Nasal Cannula 3.0 10/01/18 08:10 68 20 97 Nasal Cannula 2.0 28 10/01/18 08:00 96.8 81 109/61 (77) 93 10/01/18 08:00 113 10/01/18 07:57 67 20 94 Simple Mask 3.0 10/01/18 04:09 96 Nasal Cannula 2.0 28 10/01/18 04:09 88 20 98 Nasal Cannula 2.0 28 10/01/18 04:00 92 10/01/18 03:59 87 22 93 Room Air 21 10/01/18 02:19 Nasal Cannula 2.0 10/01/18 01:45 97.7 91 118/68 (85) 93 10/01/18 01:32 91 10/01/18 01:20 97.9 18 100/73 100 Room Air 21 10/01/18 01:20 97.9 18 100/73 100 Room Air 21 10/01/18 01:17 90 18 100 Room Air 21 10/01/18 01:10 89 18 98 Room Air 21 09/30/18 23:11 88 18 99 Room Air 21 09/30/18 23:00 83 18 97 Room Air 21 09/30/18 23:00 83 18 97 Room Air 21 09/30/18 22:56 97.9 20 100/73 94 Room Air 09/30/18 22:56 90 20 Room Air 09/30/18 22:41 97.9 90 20 100/73 (82) 94 Room Air Laboratory Tests Test 09/30/18 23:10 10/01/18 07:00 White Blood Count 13.1 K/UL (4.8-10.8) H 11.4 K/UL (4.8-10.8) H Red Blood Count 4.91 M/UL (4.20-5.40) 4.86 M/UL (4.20-5.40) Hemoglobin 13.2 G/DL (12.0-16.0) 13.1 G/DL (12.0-16.0) Hematocrit 39.2 % (37.0-47.0) 41.4 % (37.0-47.0) Mean Corpuscular Volume 80 FL (80-99) 85 FL (80-99) Mean Corpuscular Hemoglobin 26.8 PG (27.0-31.0) L 26.9 PG (27.0-31.0) L Mean Corpuscular Hemoglobin Concent 33.5 G/DL (32.0-36.0) 31.6 G/DL (32.0-36.0) L Red Cell Distribution Width 13.0 % (11.6-14.8) 13.9 % (11.6-14.8) Platelet Count 312 K/UL (150-450) 285 K/UL (150-450) Mean Platelet Volume 6.3 FL (6.5-10.1) L 7.2 FL (6.5-10.1) Neutrophils (%) (Auto) 53.0 % (45.0-75.0) 54.6 % (45.0-75.0) Lymphocytes (%) (Auto) 35.1 % (20.0-45.0) 34.0 % (20.0-45.0) Monocytes (%) (Auto) 8.6 % (1.0-10.0) 7.8 % (1.0-10.0) Eosinophils (%) (Auto) 2.1 % (0.0-3.0) 2.0 % (0.0-3.0) Basophils (%) (Auto) 1.2 % (0.0-2.0) 1.5 % (0.0-2.0) Sodium Level 138 MMOL/L (136-145) 140 MMOL/L (136-145) Potassium Level 4.0 MMOL/L (3.5-5.1) 3.9 MMOL/L (3.5-5.1) Chloride Level 100 MMOL/L (98-107) 102 MMOL/L (98-107) Carbon Dioxide Level 33 MMOL/L (21-32) H 31 MMOL/L (21-32) Anion Gap 5 mmol/L (5-15) 7 mmol/L (5-15) Blood Urea Nitrogen 12 mg/dL (7-18) 13 mg/dL (7-18) Creatinine 0.9 MG/DL (0.55-1.30) 1.0 MG/DL (0.55-1.30) Estimat Glomerular Filtration Rate > 60 mL/min (>60) > 60 mL/min (>60) Glucose Level 184 MG/DL (74-106) H 266 MG/DL (74-106) H Calcium Level 9.8 MG/DL (8.5-10.1) 9.4 MG/DL (8.5-10.1) Total Bilirubin 0.2 MG/DL (0.2-1.0) 0.1 MG/DL (0.2-1.0) L Aspartate Amino Transf (AST/SGOT) 15 U/L (15-37) 12 U/L (15-37) L Alanine Aminotransferase (ALT/SGPT) 36 U/L (12-78) 31 U/L (12-78) Alkaline Phosphatase 105 U/L (46-116) 106 U/L (46-116) Total Creatine Kinase 56 U/L (26-308) Creatine Kinase MB 1.1 NG/ML (0.0-3.6) Creatine Kinase MB Relative Index 1.9 Troponin I 0.000 ng/mL (0.000-0.056) 0.000 ng/mL (0.000-0.056) Pro-B-Type Natriuretic Peptide 6 pg/mL (0-125) Total Protein 7.7 G/DL (6.4-8.2) 7.6 G/DL (6.4-8.2) Albumin 3.4 G/DL (3.4-5.0) 3.3 G/DL (3.4-5.0) L Globulin 4.3 g/dL 4.3 g/dL Albumin/Globulin Ratio 0.8 (1.0-2.7) L 0.8 (1.0-2.7) L Lipase 320 U/L (73-393) Hemoglobin A1c 10.7 % (4.3-6.0) H Triglycerides Level 170 MG/DL (30-150) H Cholesterol Level 171 MG/DL (< 200) LDL Cholesterol 113 mg/dL (<100) H HDL Cholesterol 32 MG/DL (40-60) L Cholesterol/HDL Ratio 5.3 (3.3-4.4) H Anand Nelson MD Oct 01, 2018 14:11
[2018-10-01] MEDS ORDERED: Albuterol/Ipratropium 3ml neb HHN PRN (14:30)
[2018-10-01] MEDS ORDERED: Azithromycin 250mg tab ORAL ONE (14:30)
--- NOTE | 2018-10-01 14:48 | Consultation ---
Consult Note Assessment/Plan DICT # [id number] Oscar Pena MD Oct 01, 2018 14:48
[2018-10-01] MEDS ORDERED: SYMBICORT 16010.2 G1 IH (15:56)
[2018-10-01 16:00] VITALS: BP 114/64
--- NOTE | 2018-10-01 16:37 | Physician Query ---
Clarification is required for compliance, coding accuracy, and to reflect severity of illness for this patient Dear Josep Buckley Date:10/01/2018 Departmental Buyer/CDS Name: Maddy Hernandez 53 year old female, with complaints of shortness of breath, BNP 6, CXR- reduced lung volumes with probably, mild patchy bilateral infiltrates. Lasix 40 mg IV daily. Pulmonary edema with lower extremity edema,likely secondary to CHF new onset, documented in the History and physical. Please Clarify: Acuity [] Acute [x] Chronic [] Acute on Chronic Type [] Systolic [x] Diastolic [] Systolic & Diastolic (Combined) [] Other: Present on Admission: [x] Yes [] No [] Clinically Undetermined abbi Yee__ __ Physician signature Date Please also document in your Progress Notes and/or Discharge Summary and indicate if the condition was present on admission. PAMELA
[2018-10-01] MEDS: Ketotifen Fumarate 0.035% 5ml BOTH EYES SCH (17:31)
[2018-10-01] MEDS: Wixela 250/50 Inhaler - 60 dose INH SCH (18:54)
[2018-10-01] MEDS: Albuterol/Ipratropium 3ml neb HHN SCH (19:03)
--- NOTE | 2018-10-01 19:36 | NUR ---
HAND-OFF: Report given to ELIO Pierce. No acute s/s of distress noted.
--- NOTE | 2018-10-01 19:37 | NUR ---
NURSE NOTES: Received pt from ELIO Cm. Pt awake, alert, and talkative. Bed in lowest position. Call light within reach. Will continue to monitor.
[2018-10-01 20:00] VITALS: BP 116/72
[2018-10-01] MEDS: Solu-MEDROL 125mg Inj IVP SCH (20:43)
[2018-10-01] MEDS: Atorvastatin 20mg tab ORAL SCH (20:44)
--- NOTE | 2018-10-01 22:15 | Consultation ---
DATE OF CONSULTATION: 10/01/2018 PULMONARY CONSULTATION CONSULTING PHYSICIAN: Oscar Pena M.D. REFERRING PHYSICIAN: Melody Yee M.D. REASON FOR CONSULTATION: Asthma exacerbation. HISTORY OF PRESENT ILLNESS: The patient is a 58-year-old female, nonsmoker with a history of obesity, hypertension, hyperlipidemia, PRISCILLA on CPAP at home, asthma, prior CVA, and diabetes, presenting with a few days of cough, congestion, and shortness of breath. Per the patient, she uses Advair at baseline with p.r.n. Ventolin, but over the past few days she has had increased wheezing and shortness of breath refractory to her medication. She notes a nonproductive cough, wheezing as stated. No fevers or chills, markedly short of breath. No nausea, vomiting, diarrhea, or constipation. She was seen in the ER. Since presenting to the hospital, she has been afebrile. Vital signs have been stable. T-max was 98.5. She is saturating well on two liters. Laboratory workup was significant for mild leukocytosis, otherwise unremarkable. Chest x-ray reviewed by myself demonstrated low volumes with patchy faint scattered bilateral infiltrates. PAST MEDICAL HISTORY: 1. Prior CVA. 2. Hypertension. 3. Hyperlipidemia. 4. Diabetes. 5. Asthma. 6. Obesity. 7. Obstructive sleep apnea. PAST SURGICAL HISTORY: None. ALLERGIES: Erythromycin base. MEDICATIONS: Prior to admission medications reviewed. Current medications reviewed. SOCIAL HISTORY: She denies tobacco, alcohol, or drug use. FAMILY HISTORY: Noncontributory. REVIEW OF SYSTEMS: Negative other than history of present illness. PHYSICAL EXAMINATION: VITAL SIGNS: Temperature 98.5, pulse 82, blood pressure 108/72, and respiratory rate 20. Saturating 98% on 2 L. GENERAL: She is an obese female, in no acute distress. Awake, alert, and oriented x3. HEENT: Normocephalic and atraumatic. Oropharynx is clear with moist mucous membranes. NECK: Without lymphadenopathy or JVD. CHEST: Scattered rhonchi with end-expiratory wheezing. Decreased at the bases. HEART: Regular rate and rhythm. ABDOMEN: Soft, nontender, and nondistended. EXTREMITIES: No cyanosis or clubbing. There is 1+ edema. ANCILLARY DATA: Labs reviewed. Chest x-ray, faint bilateral infiltrates. ASSESSMENT: The patient is a 58-year-old female, nonsmoker with a history of asthma, presenting with an acute exacerbation of her asthma in the setting of a respiratory infection, upper respiratory infection/tracheobronchitis versus early pneumonia. PROBLEM LIST: 1. Asthma with acute exacerbation. 2. Upper respiratory infection/tracheobronchitis versus early pneumonia. 3. PRISCILLA, on CPAP. 4. Morbid obesity. 5. Likely obesity hypoventilation. 6. Diabetes, hypertension, hyperlipidemia, and prior CVA. TREATMENT PLAN: 1. Optimize pulmonary hygiene/mobilize as tolerated. 2. Titrate down FiO2 to keep saturations greater than 90%. 3. Start Advair ( for Symbicort). 4. [id number]-nvmpc and p.r.n. bronchodilators. 5. Solu-Medrol 60 mg IV b.i.d. and taper. 6. Continue Rocephin, add azithromycin, follow up cultures. 7. Monitor volumes and renal function. 8. DC Lasix. 9. Followup echocardiogram. 10. DVT prophylaxis, heparin subcutaneous. 11. CPAP 10 cm of water nightly was ordered. 12. Weight loss, diet and exercise was discussed. 13. Infiltrates have to be followed to radiographic resolution, otherwise the patient will need a CT. 14. The patient's primary care provider is in [place] and she states she has had PFTs within the past year. Dr. Yee, thank you for allowing me to assist in the care of your patient. If I may be of any assistance in the future, please do not hesitate to ask. Oscar Pena M.D. DR: JOS JOB#: [id number] CC:
[2018-10-02] VITALS: BP 120/70
[2018-10-02] MEDS: Albuterol/Ipratropium 3ml neb HHN SCH ×4 (01:44→20:04)
[2018-10-02 04:00] VITALS: BP 130/81
[2018-10-02] MEDS: NovoLOG Insulin Flexpen SUBQ SCH ×4 (06:59→20:36)
[2018-10-02] MEDS: metFORMIN 500mg tab ORAL SCH ×2 (07:00→11:50)
[2018-10-02] MEDS: sitaGLIPtin 25mg tab ORAL SCH (07:00)
--- NOTE | 2018-10-02 07:35 | NUR ---
HAND-OFF: Report given to ELIO Cm. Pt stable.
--- NOTE | 2018-10-02 07:45 | NUR ---
NURSE NOTES: Pt received from ELIO Pierce alert and oriented x4 with no acute s/s of distress noted. Currently on room air, saturating at 96% sitting up in bed and eating breakfast, with no acute s/s of SOB. IV site asymptomatic and patent. Bed in lowest position, call light and belongings within reach.
[2018-10-02 08:00] VITALS: BP 103/54
--- NOTE | 2018-10-02 08:24 | NUR ---
NURSE NOTES: Received report that pt has positive blood cultures x2 of gram positive cocci in clusters. Informed Dr. Yee who ordered that Dr. Goldman consult on the case for ID and start Vanco with pharmacy to dose. Informed Dr. Goldman who agreed and placed in orders.
[2018-10-02] MEDS: HYDROcodone/Acetamin 10/325 tab ORAL PRN ×2 (08:38→22:19)
[2018-10-02] MEDS: Ketotifen Fumarate 0.035% 5ml BOTH EYES SCH ×2 (08:38→17:18)
[2018-10-02] MEDS: Solu-MEDROL 125mg Inj IVP SCH ×2 (08:38→20:33)
[2018-10-02] MEDS: hydroCHLOROthiazide 12.5mg TAB ORAL SCH (08:51)
[2018-10-02] MEDS: Benazepril 10mg tab ORAL SCH (08:52)
[2018-10-02] MEDS: Heparin 5000 units/ml inj SUBQ SCH ×2 (09:00→20:36)
[2018-10-02] MEDS: Wixela 250/50 Inhaler - 60 dose INH SCH ×2 (09:00→11:02)
[2018-10-02] MEDS ORDERED: Azithromycin 250mg tab ORAL SCH (09:00)
--- NOTE | 2018-10-02 10:36 | NUR ---
NURSE NOTES: Dr. Yee assessed pt at bedside. Per Dr. Yee, "pt has murmur, please consult Dr. Nelson for cardio and report 2d echo results and blood culture results - gram positive cocci in clusters." RN reported to Dr. Nelson, currently awaiting call back. No new orders given as of yet.
--- NOTE | 2018-10-02 10:50 | General Progress Note ---
Assessment/Plan Assessment/Plan: S: I am still very fatigued O: Appears comfortalbe, reported still complianing of sob. PHYSICAL EXAMINATION:HEENT: Atraumatic and normocephalic. CHEST: Diffuse bronchial breathing sounds. Heart: 2 + DUSTIN, Mild diffuse wheezing. MUSCULOSKELETAL: No gross lateralized motor deficit. Positive for 2+ pitting edema in the lower extremity.NEUROLOGY: Awake, alert, and oriented x3. ABDOMEN: Soft. No organomegaly. Morbidly obese. Meds: reviewed and reconciled in the chart IMAGING: Chest x-ray dated September 30, 2018 shows bilateral patchy infiltrates. ASSESSMENT: 1. Asthma exacerbation. 2. Bactremia- Gr positive 2. Pulmonary edema in conjunction with lower extremity edema, likely secondary to new onset heart failure. 3. Morbid obesity. 4. Diabetes type 2. 5. GI and DVT prophylaxis. PLAN OF CARE: Start Vanco Consult ID Notified Cardiology Subjective Allergies: Coded Allergies: ERYTHROMYCIN BASE (Verified Allergy, Severe, Shortness of Breath, 10/01/18) Per pt, states that she got "short of breath and spread out in hives" Objective Last 24 Hour Vital Signs Date Time Temp Pulse Resp B/P (MAP) Pulse Ox O2 Delivery O2 Flow Rate FiO2 10/02/18 09:00 Nasal Cannula 3.0 10/02/18 08:52 103/54 10/02/18 08:02 Nasal Cannula 2.0 28 10/02/18 08:00 98.4 79 20 103/54 (70) 97 10/02/18 08:00 102 10/02/18 07:41 Nasal Cannula 2.0 28 10/02/18 07:41 Nasal Cannula 2.0 28 10/02/18 07:41 Nasal Cannula 2.0 28 10/02/18 07:41 Nasal Cannula 2.0 28 10/02/18 05:24 74 16 95 Facial 30 10/02/18 04:00 98.6 96 18 130/81 (97) 100 10/02/18 04:00 92 10/02/18 03:07 81 15 96 Full Face 30 10/02/18 01:30 83 18 95 Full Face 30 10/02/18 01:28 84 18 96 Bi-pap 30 10/02/18 01:10 80 18 94 Bi-pap 30 10/02/18 00:00 98.4 102 18 120/70 (87) 96 10/02/18 00:00 94 10/01/18 23:30 85 17 94 Full Face 30 10/01/18 22:00 80 15 95 Full Face 30 10/01/18 21:00 Nasal Cannula 3.0 10/01/18 20:00 98 10/01/18 20:00 98.7 104 116/72 (87) 100 10/01/18 19:05 86 20 97 Nasal Cannula 2.0 28 10/01/18 19:04 95 Nasal Cannula 2.0 28 10/01/18 18:58 83 18 96 Nasal Cannula 2.0 28 10/01/18 18:57 81 18 95 Nasal Cannula 2.0 28 10/01/18 18:55 82 20 95 Nasal Cannula 2.0 28 10/01/18 16:00 98.2 83 114/64 (81) 98 10/01/18 16:00 91 10/01/18 14:08 92 20 98 Nasal Cannula 2.0 28 10/01/18 14:02 92 20 95 Nasal Cannula 2.0 28 10/01/18 12:00 98.5 83 109/76 (87) 94 10/01/18 12:00 97.8 83 109/76 (87) 93 10/01/18 12:00 88 10/01/18 11:18 78 20 97 Nasal Cannula 2.0 28 10/01/18 11:11 72 20 94 Nasal Cannula 2.0 28 Intake and Output 10/01/18 10/02/18 18:59 06:59 Intake Total 110 ml Balance 110 ml Intake IV Total 110 ml Height (Feet): 5 Height (Inches): 3.00 Weight (Pounds): 297 Melody Yee MD Oct 02, 2018 10:50
[2018-10-02] MEDS: cefTRIAXone 2 GM in D5W 55 ML IVPB SCH (11:50)
[2018-10-02 12:00] VITALS: BP 100/66
--- NOTE | 2018-10-02 12:50 | Cardiology Report ---
APPROVED REPORT EXAM: Two-dimensional and M-mode echocardiogram with Doppler and color Doppler. INDICATION Congestive Heart Failure M-Mode DIMENSIONS IVSd1.3 (0.7-1.1cm)Left Atrium (MM)3.4 (1.6-4.0cm) LVDd5.6 (3.5-5.6cm)Aortic Root2.6 (2.0-3.7cm) PWd1.2 (0.7-1.1cm)Aortic Cusp Exc.1.8 (1.5-2.0cm) IVSs1.9 cm LVDs3.2 (2.5-4.0cm) PWs1.7 cm Technically difficult study due to pt's ventilator. Study quality precludes accurate assessment of regional wall motion. Normal left ventricular chamber size, systolic function and wall motion to extent visualized. Left ventricular ejection fraction estimated to be 55-60%. No evidence of left ventricular hypertrophy . No evidence of pericardial effusion . Mild left atrial enlargement . Right cardiac chamber sizes are within normal limits. Aortic valve calcification with normal cusp excursion . Mildly thickened mitral valve leaflets with normal excursion. Mild mitral annulus and aortic root calcification. Pulmonic valve not well visualized. IVC at normal size with physiologic collapse. A color flow and spectral Doppler study was performed and revealed: No aortic insufficiency . Mitral diastolic velocities suggest reduced left ventricular relaxation c/w mild LV diastolic dysfunction (Grade I ). Trace mitral regurgitation. Mild tricuspid regurgitation. Tricuspid systolic velocities suggests peak right ventricular systolic pressure of 41mmHg,consistent with mild pulmonary HTN.
--- NOTE | 2018-10-02 12:53 | Pulmonology Progress Note ---
Assessment/Plan Assessment/Plan ASSESSMENT: The patient is a 58-year-old female, nonsmoker with a history of asthma, presenting with an acute exacerbation of her asthma in the setting of a respiratory infection, upper respiratory infection/ tracheobronchitis versus early pneumonia. PROBLEM LIST: 1. Asthma with acute exacerbation. 2. Upper respiratory infection/tracheobronchitis versus early pneumonia. 3. GPC bacteremia 4. PRISCILLA, on CPAP. 5. Morbid obesity. 6. Likely obesity hypoventilation. 7. Diabetes, hypertension, hyperlipidemia, and prior CVA. 8. Mild pulmonary HTN TREATMENT PLAN: 1. Optimize pulmonary hygiene/mobilize as tolerated. 2. Titrate down FiO2 to keep saturations greater than 90%. 3. Continue Advair (auto sub for Symbicort). 4. Mqrkj-kzi-cwepi and p.r.n. bronchodilators. 5. Solu-Medrol 60 mg IV b.i.d. and taper. 6. Continue Rocephin, Vanco per ID, F/U Cx's. 7. Monitor volumes and renal function. 8. DVT prophylaxis, heparin subcutaneous. 9. CT chest 10. CPAP 10 cm of water nightly was ordered. 11. Weight loss, diet and exercise was discussed again today Subjective Allergies: Coded Allergies: ERYTHROMYCIN BASE (Verified Allergy, Severe, Shortness of Breath, 10/01/18) Per pt, states that she got "short of breath and spread out in hives" Subjective AFVSS on RA GPC in the blood less cough less wheezing less SOB Concerned Re: Sarcoid, states mother and sister both had sarcoid and someone previously told her she has radiographic e/o it herself Objective Last 24 Hour Vital Signs Date Time Temp Pulse Resp B/P (MAP) Pulse Ox O2 Delivery O2 Flow Rate FiO2 10/02/18 12:00 97.6 80 20 100/66 (77) 96 10/02/18 09:00 Nasal Cannula 3.0 10/02/18 08:52 103/54 10/02/18 08:02 Nasal Cannula 2.0 28 10/02/18 08:00 98.4 79 20 103/54 (70) 97 10/02/18 08:00 102 10/02/18 07:41 Nasal Cannula 2.0 28 10/02/18 07:41 Nasal Cannula 2.0 28 10/02/18 07:41 Nasal Cannula 2.0 28 10/02/18 07:41 Nasal Cannula 2.0 28 10/02/18 05:24 74 16 95 Facial 30 10/02/18 04:00 98.6 96 18 130/81 (97) 100 10/02/18 04:00 92 10/02/18 03:07 81 15 96 Full Face 30 10/02/18 01:30 83 18 95 Full Face 30 10/02/18 01:28 84 18 96 Bi-pap 30 10/02/18 01:10 80 18 94 Bi-pap 30 10/02/18 00:00 98.4 102 18 120/70 (87) 96 10/02/18 00:00 94 10/01/18 23:30 85 17 94 Full Face 30 10/01/18 22:00 80 15 95 Full Face 30 10/01/18 21:00 Nasal Cannula 3.0 10/01/18 20:00 98 10/01/18 20:00 98.7 104 116/72 (87) 100 10/01/18 19:05 86 20 97 Nasal Cannula 2.0 28 10/01/18 19:04 95 Nasal Cannula 2.0 28 10/01/18 18:58 83 18 96 Nasal Cannula 2.0 28 10/01/18 18:57 81 18 95 Nasal Cannula 2.0 28 10/01/18 18:55 82 20 95 Nasal Cannula 2.0 28 10/01/18 16:00 98.2 83 114/64 (81) 98 10/01/18 16:00 91 10/01/18 14:08 92 20 98 Nasal Cannula 2.0 28 10/01/18 14:02 92 20 95 Nasal Cannula 2.0 28 Intake and Output 10/01/18 10/02/18 18:59 06:59 Intake Total 110 ml Balance 110 ml Intake IV Total 110 ml General Appearance: WD/WN, no acute distress, other - morbidly obese HEENT: normocephalic, atraumatic, anicteric, mucous membranes moist Respiratory/Chest: no respiratory distress, no accessory muscle use, expiratory wheezing Cardiovascular: normal peripheral pulses, normal rate, regular rhythm Abdomen: normal bowel sounds, soft, non tender, no organomegaly, non distended , no mass Extremities: no cyanosis, no clubbing, other - 1+ JOCELYN Microbiology Date/Time Source Procedure Growth Status 09/30/18 23:59 Blood Blood Culture - Preliminary Resulted 09/30/18 23:45 Blood Blood Culture - Preliminary Resulted 10/01/18 17:34 Sputum Gram Stain - Final Resulted 10/01/18 17:34 Sputum Sputum Culture Pending Resulted Current Medications Medications (Trade) Dose Ordered Sig/John Route PRN Reason Start Time Stop Time Status Last Admin Dose Admin Acetaminophen (Tylenol) 650 mg Q4H PRN ORAL Mild Pain/Temp > 100.5 10/01/18 03:00 10/31/18 02:59 Acetaminophen/ Hydrocodone Bitart ([place] 10/325) 1 tab Q4H PRN ORAL For moderate-severe Pain >5/10 10/01/18 03:00 10/08/18 02:59 10/02/18 08:38 Albuterol/ Ipratropium (Albuterol/ Ipratropium) 3 ml Q4H PRN HHN Shortness of Breath 10/01/18 14:30 10/06/18 14:29 Albuterol/ Ipratropium (Albuterol/ Ipratropium) 3 ml Q6HRT HHN 10/01/18 19:00 10/06/18 18:59 10/02/18 01:44 Atorvastatin Calcium (Lipitor) 20 mg BEDTIME ORAL 10/01/18 21:00 10/31/18 20:59 10/01/18 20:44 Benazepril HCl (Lotensin) 10 mg DAILY ORAL 10/02/18 09:00 11/01/18 08:59 Ceftriaxone Sodium 2 gm/ Dextrose 55 ml @ 110 mls/hr Q24H IVPB 10/01/18 12:00 10/08/18 11:59 10/02/18 11:50 Dextrose (Dextrose 50%) 25 ml Q30M PRN IV Hypoglycemia 10/01/18 08:15 10/31/18 08:14 Dextrose (Dextrose 50%) 50 ml Q30M PRN IV Hypoglycemia 10/01/18 08:15 10/31/18 08:14 Doxycycline Monohydrate (Doxycycline Monohydrate) 100 mg EVERY 12 HOURS ORAL 10/01/18 21:00 10/08/18 09:01 10/02/18 08:38 Heparin Sodium (Porcine) (Heparin 5000 units/ml) 5,000 units EVERY 12 HOURS SUBQ 10/01/18 09:00 7/1/19 08:59 10/01/18 20:46 Hydrochlorothiazide (Hydrodiuril) 12.5 mg DAILY ORAL 10/02/18 09:00 11/01/18 08:59 Insulin Aspart (NovoLOG) BEFORE MEALS AND HS SUBQ 10/01/18 11:30 10/31/18 11:29 10/02/18 12:03 Ketotifen Fumarate (Zatidor) 1 drop BID BOTH EYES 10/01/18 18:00 10/31/18 17:59 10/02/18 08:38 Metformin HCl (Glucophage) 1,000 mg BIDBL ORAL 10/02/18 06:30 11/01/18 06:29 10/02/18 11:50 Methylprednisolone Sodium Succinate (Solu-MEDROL) 60 mg EVERY 12 HOURS IVP 10/01/18 21:00 10/31/18 20:59 10/02/18 08:38 Pantoprazole (Protonix) 40 mg DAILY ORAL 10/01/18 09:00 10/31/18 08:59 10/02/18 08:38 Patient Own Medication (Patient's Own Med) 1 ea DAILY ORAL 10/02/18 09:00 11/01/18 08:59 UNV Pioglitazone HCl (Actos) 30 mg ACBREAKFAST ORAL 10/02/18 06:30 11/01/18 06:29 10/02/18 07:00 Promethazine HCl/ Codeine (Phenergan with Codeine) 10 ml TID PRN ORAL For Cough 10/01/18 03:00 10/31/18 02:59 10/01/18 21:03 Salmeterol Xinafoate/ Fluticasone (Advair 250/50 Diskus) 1 puffs BID INH 10/01/18 18:00 10/31/18 17:59 10/02/18 11:02 Sitagliptin Phosphate (Januvia) 25 mg ACBREAKFAST ORAL 10/02/18 06:30 11/01/18 06:29 10/02/18 07:00 Vancomycin HCl (Vanco rx to dose) 1 ea DAILY PRN MISC Per rx protocol 10/02/18 09:45 11/01/18 09:44 Vancomycin HCl 1 gm/Dextrose 275 ml @ 183.708 mls/hr Q12HR@1100,2300 IVPB 10/02/18 11:00 10/07/18 10:59 Oscar Pena MD Oct 02, 2018 12:53
[2018-10-02] MEDS: Vancomycin 1gm/D5W 275ml IVPB SCH ×4 (14:13→22:20)
[2018-10-02 16:00] VITALS: BP 119/71
--- NOTE | 2018-10-02 17:55 | Infectious Diseases Prog Note ---
Assessment/Plan Problems: (1) Bacteremia due to Gram-positive bacteria Assessment & Plan: start vancomycin empirically pending identification and sensitivity . transthoracic echo showed no vegetations (2) COPD (chronic obstructive pulmonary disease) Assessment & Plan: with exacerbations due to the above, continue inhalers, antibiotics and taper steroids (3) Edema of both legs Assessment & Plan: possible heart failure related, continue diuresis as per cardiology (4) Diabetes mellitus Assessment & Plan: recommend tight glycemic control to keep blood glucose between 100-140 Subjective Allergies: Coded Allergies: ERYTHROMYCIN BASE (Verified Allergy, Severe, Shortness of Breath, 10/01/18) Per pt, states that she got "short of breath and spread out in hives" Objective Vital Signs Last 24 Hour Vital Signs Date Time Temp Pulse Resp B/P (MAP) Pulse Ox O2 Delivery O2 Flow Rate FiO2 10/02/18 13:39 85 20 95 Nasal Cannula 2.0 28 10/02/18 13:39 85 20 98 Nasal Cannula 2.0 28 10/02/18 12:00 97.6 80 20 100/66 (77) 96 10/02/18 12:00 94 10/02/18 09:00 Nasal Cannula 3.0 10/02/18 08:52 103/54 10/02/18 08:02 Nasal Cannula 2.0 28 10/02/18 08:00 98.4 79 20 103/54 (70) 97 10/02/18 08:00 102 10/02/18 07:41 Nasal Cannula 2.0 28 10/02/18 07:41 Nasal Cannula 2.0 28 10/02/18 07:41 Nasal Cannula 2.0 28 10/02/18 07:41 Nasal Cannula 2.0 28 10/02/18 05:24 74 16 95 Facial 30 10/02/18 04:00 98.6 96 18 130/81 (97) 100 10/02/18 04:00 92 10/02/18 03:07 81 15 96 Full Face 30 10/02/18 01:30 83 18 95 Full Face 30 10/02/18 01:28 84 18 96 Bi-pap 30 10/02/18 01:10 80 18 94 Bi-pap 30 10/02/18 00:00 98.4 102 18 120/70 (87) 96 10/02/18 00:00 94 10/01/18 23:30 85 17 94 Full Face 30 10/01/18 22:00 80 15 95 Full Face 30 10/01/18 21:00 Nasal Cannula 3.0 10/01/18 20:00 98 10/01/18 20:00 98.7 104 116/72 (87) 100 10/01/18 19:05 86 20 97 Nasal Cannula 2.0 28 10/01/18 19:04 95 Nasal Cannula 2.0 28 10/01/18 18:58 83 18 96 Nasal Cannula 2.0 28 10/01/18 18:57 81 18 95 Nasal Cannula 2.0 28 10/01/18 18:55 82 20 95 Nasal Cannula 2.0 28 Height (Feet): 5 Height (Inches): 3.00 Weight (Pounds): 295 Microbiology Date/Time Source Procedure Growth Status 09/30/18 23:59 Blood Blood Culture - Preliminary Resulted 09/30/18 23:45 Blood Blood Culture - Preliminary Resulted 10/01/18 17:34 Sputum Gram Stain - Final Resulted 10/01/18 17:34 Sputum Sputum Culture Pending Resulted Current Medications Medications (Trade) Dose Ordered Sig/John Route PRN Reason Start Time Stop Time Status Last Admin Dose Admin Acetaminophen (Tylenol) 650 mg Q4H PRN ORAL Mild Pain/Temp > 100.5 10/01/18 03:00 10/31/18 02:59 Acetaminophen/ Hydrocodone Bitart ([place] 10/325) 1 tab Q4H PRN ORAL For moderate-severe Pain >5/10 10/01/18 03:00 10/08/18 02:59 10/02/18 08:38 Albuterol/ Ipratropium (Albuterol/ Ipratropium) 3 ml Q4H PRN HHN Shortness of Breath 10/01/18 14:30 10/06/18 14:29 Albuterol/ Ipratropium (Albuterol/ Ipratropium) 3 ml Q6HRT HHN 10/01/18 19:00 10/06/18 18:59 10/02/18 13:40 Atorvastatin Calcium (Lipitor) 20 mg BEDTIME ORAL 10/01/18 21:00 10/31/18 20:59 10/01/18 20:44 Benazepril HCl (Lotensin) 10 mg DAILY ORAL 10/02/18 09:00 11/01/18 08:59 Ceftriaxone Sodium 2 gm/ Dextrose 55 ml @ 110 mls/hr Q24H IVPB 10/01/18 12:00 10/08/18 11:59 10/02/18 11:50 Dextrose (Dextrose 50%) 25 ml Q30M PRN IV Hypoglycemia 10/01/18 08:15 10/31/18 08:14 Dextrose (Dextrose 50%) 50 ml Q30M PRN IV Hypoglycemia 10/01/18 08:15 10/31/18 08:14 Doxycycline Monohydrate (Doxycycline Monohydrate) 100 mg EVERY 12 HOURS ORAL 10/01/18 21:00 10/08/18 09:01 10/02/18 08:38 Heparin Sodium (Porcine) (Heparin 5000 units/ml) 5,000 units EVERY 12 HOURS SUBQ 10/01/18 09:00 10/31/18 08:59 10/01/18 20:46 Hydrochlorothiazide (Hydrodiuril) 12.5 mg DAILY ORAL 10/02/18 09:00 11/01/18 08:59 Insulin Aspart (NovoLOG) BEFORE MEALS AND HS SUBQ 10/01/18 11:30 10/31/18 11:29 10/02/18 17:22 Ketotifen Fumarate (Zatidor) 1 drop BID BOTH EYES 10/01/18 18:00 10/31/18 17:59 10/02/18 17:18 Metformin HCl (Glucophage) 1,000 mg BIDBL ORAL 10/02/18 06:30 11/01/18 06:29 10/02/18 11:50 Methylprednisolone Sodium Succinate (Solu-MEDROL) 60 mg EVERY 12 HOURS IVP 10/01/18 21:00 10/31/18 20:59 10/02/18 08:38 Pantoprazole (Protonix) 40 mg DAILY ORAL 10/01/18 09:00 10/31/18 08:59 10/02/18 08:38 Pioglitazone HCl (Actos) 30 mg ACBREAKFAST ORAL 10/02/18 06:30 11/01/18 06:29 10/02/18 07:00 Promethazine HCl/ Codeine (Phenergan with Codeine) 10 ml TID PRN ORAL For Cough 10/01/18 03:00 10/31/18 02:59 10/01/18 21:03 Salmeterol Xinafoate/ Fluticasone (Advair 250/50 Diskus) 1 puffs BID INH 10/01/18 18:00 10/31/18 17:59 10/02/18 11:02 Sitagliptin Phosphate (Januvia) 25 mg ACBREAKFAST ORAL 10/02/18 06:30 11/01/18 06:29 10/02/18 07:00 Vancomycin HCl (Vanco rx to dose) 1 ea DAILY PRN MISC Per rx protocol 10/02/18 09:45 11/01/18 09:44 Vancomycin HCl 1 gm/Dextrose 275 ml @ 183.708 mls/hr Q12HR@1100,2300 IVPB 10/02/18 11:00 10/07/18 10:59 10/02/18 14:13 Dedrick Goldman M.D. Oct 02, 2018 17:55
--- NOTE | 2018-10-02 19:45 | NUR ---
HAND-OFF: Report given to ELIO Dillard. No acute s/s of distress noted.
[2018-10-02 20:00] VITALS: BP 108/66
--- NOTE | 2018-10-02 20:02 | NUR ---
NURSE NOTES: RECEIVED PATIENT SITTING IN BED, NO COMPLAINTS OF PAIN OR SOB AT THIS TIME. FALL PRECAUTIONS IN PLACE: CALL LIGHT, BEDSIDE TABLE AND COMMODE WITHIN REACH, BED IN LOW POSITION PLAN OF CARE REVIEWED. FAMILY AT BEDSIDE.
[2018-10-02] MEDS: Atorvastatin 20mg tab ORAL SCH (20:33)
--- NOTE | 2018-10-02 20:51 | NUR ---
NURSE NOTES: BS 407. DR. VERA NOTIFIED. NEW ORDERS OBTAINED.
[2018-10-02] MEDS ORDERED: Levemir Flexpen SUBQ SCH (22:00)
[2018-10-02] MEDS: Promethazine/Codeine 5ml UD ORAL PRN (22:20)
--- NOTE | 2018-10-02 23:49 | Cardiology Progress Note ---
Assessment/Plan Assessment/Plan The patient is seen and examined, full consult note will be dictated shortly. Objective Last 24 Hour Vital Signs Date Time Temp Pulse Resp B/P (MAP) Pulse Ox O2 Delivery O2 Flow Rate FiO2 10/02/18 21:00 Nasal Cannula 3.0 10/02/18 20:17 99 20 99 Nasal Cannula 2.0 28 10/02/18 20:10 Nasal Cannula 2.0 28 10/02/18 20:09 97 Nasal Cannula 2.0 10/02/18 20:09 Nasal Cannula 2.0 28 10/02/18 20:08 97 20 97 Nasal Cannula 2.0 28 10/02/18 20:00 98.7 105 18 108/66 (80) 97 10/02/18 20:00 103 10/02/18 16:00 109 10/02/18 16:00 98.4 69 20 119/71 (87) 95 10/02/18 13:39 85 20 95 Nasal Cannula 2.0 28 10/02/18 13:39 85 20 98 Nasal Cannula 2.0 28 10/02/18 12:00 97.6 80 20 100/66 (77) 96 10/02/18 12:00 94 10/02/18 09:00 Nasal Cannula 3.0 10/02/18 08:52 103/54 10/02/18 08:02 Nasal Cannula 2.0 28 10/02/18 08:00 98.4 79 20 103/54 (70) 97 10/02/18 08:00 102 10/02/18 07:41 Nasal Cannula 2.0 10/02/18 07:41 Nasal Cannula 2.0 10/02/18 07:41 Nasal Cannula 2.0 10/02/18 07:41 Nasal Cannula 2.0 10/02/18 05:24 74 16 95 Facial 30 10/02/18 04:00 98.6 96 18 130/81 (97) 100 10/02/18 04:00 92 10/02/18 03:07 81 15 96 Full Face 30 10/02/18 01:30 83 18 95 Full Face 30 10/02/18 01:28 84 18 96 Bi-pap 30 10/02/18 01:10 80 18 94 Bi-pap 30 10/02/18 00:00 98.4 102 18 120/70 (87) 96 10/02/18 00:00 94 Intake and Output 10/01/18 10/02/18 19:00 07:00 Intake Total 110 ml Balance 110 ml Intake IV Total 110 ml Microbiology Date/Time Source Procedure Growth Status 09/30/18 23:59 Blood Blood Culture - Preliminary Resulted 09/30/18 23:45 Blood Blood Culture - Preliminary Resulted 10/01/18 17:34 Sputum Gram Stain - Final Resulted 10/01/18 17:34 Sputum Sputum Culture Pending Resulted Anand Nelson MD Oct 02, 2018 23:49
[2018-10-03] VITALS: BP 105/65
[2018-10-03] MEDS: Albuterol/Ipratropium 3ml neb HHN SCH ×4 (00:35→19:49)
[2018-10-03 04:00] VITALS: BP 136/85
[2018-10-03] MEDS: HYDROcodone/Acetamin 10/325 tab ORAL PRN ×3 (04:27→21:12)
[2018-10-03] MEDS: sitaGLIPtin 25mg tab ORAL SCH (06:18)
[2018-10-03] MEDS: metFORMIN 500mg tab ORAL SCH ×2 (06:19→12:34)
[2018-10-03] MEDS: NovoLOG Insulin Flexpen SUBQ SCH ×6 (06:25→21:20)
[2018-10-03] MEDS ORDERED: NovoLOG Insulin Flexpen SUBQ SCH (06:30)
--- NOTE | 2018-10-03 06:51 | NUR ---
NURSE NOTES: BS [id number] CALLED AND LEFT MESSAGE FOR DR. VERA.
--- NOTE | 2018-10-03 07:29 | NUR ---
HAND-OFF: Report given to ELIO MCNAMARA. PATIENT RESTING IN BED, NO SIGNS OF DISTRESS NOTED. ENDORSED TO FOLLOW UP WITH DR. VERA ON BS 465
--- NOTE | 2018-10-03 07:45 | NUR ---
NURSE NOTES: Pt received from ELIO Dillard alert and oriented x4 with no acute s/s of distress noted. On 3L NC, saturating at 93%. IV site asymptomatic and patent on R wrist 20g on saline lock. Bed in lowest position, call light and belongings within reach.
[2018-10-03] MEDS: Wixela 250/50 Inhaler - 60 dose INH SCH ×2 (07:59→19:48)
[2018-10-03 08:00] VITALS: BP 135/69
[2018-10-03] MEDS: hydroCHLOROthiazide 12.5mg TAB ORAL SCH (08:36)
[2018-10-03] MEDS: Ketotifen Fumarate 0.035% 5ml BOTH EYES SCH ×2 (08:37→17:38)
[2018-10-03] MEDS: Benazepril 10mg tab ORAL SCH (08:37)
[2018-10-03] MEDS: Heparin 5000 units/ml inj SUBQ SCH ×3 (08:37→21:21)
--- NOTE | 2018-10-03 10:17 | General Progress Note ---
Assessment/Plan Assessment/Plan: S: I am still very fatigued O: Appears comfortable, reported still complaining of sob. PHYSICAL EXAMINATION:HEENT: Atraumatic and normocephalic. CHEST: Diffuse bronchial breathing sounds. Heart: 2 + DUSTIN, Mild diffuse wheezing. MUSCULOSKELETAL: No gross lateralized motor deficit. Positive for 2+ pitting edema in the lower extremity.NEUROLOGY: Awake, alert, and oriented x3. ABDOMEN: Soft. No organomegaly. Morbidly obese. Meds: reviewed and reconciled in the chart IMAGING: Chest x-ray dated September 30, 2018 shows bilateral patchy infiltrates. ASSESSMENT: 1. Asthma exacerbation. 2. Bactremia- Gr positive 2. Pulmonary edema in conjunction with lower extremity edema, likely secondary to new onset heart failure. 3. Morbid obesity. 4. Diabetes type 2. 5. GI and DVT prophylaxis. PLAN OF CARE: Start Vanco Consult ID Notified Cardiology will optimse diabetic medication Endo is consulted Subjective Allergies: Coded Allergies: ERYTHROMYCIN BASE (Verified Allergy, Severe, Shortness of Breath, 10/01/18) Per pt, states that she got "short of breath and spread out in hives" Objective Last 24 Hour Vital Signs Date Time Temp Pulse Resp B/P (MAP) Pulse Ox O2 Delivery O2 Flow Rate FiO2 10/03/18 09:00 Nasal Cannula 3.0 10/03/18 08:37 135/69 10/03/18 08:00 97.3 95 18 135/69 (91) 93 10/03/18 07:25 98 18 100 Nasal Cannula 2.0 10/03/18 07:25 98 Nasal Cannula 2.0 28 10/03/18 07:24 93 16 97 Nasal Cannula 2.0 28 10/03/18 07:24 76 16 97 Nasal Cannula 2.0 28 10/03/18 07:20 91 16 95 Nasal Cannula 2.0 28 10/03/18 05:14 89 16 99 Facial 30 10/03/18 04:00 97 10/03/18 04:00 97.5 97 19 136/85 (102) 98 10/03/18 03:29 85 17 99 Facial 30 10/03/18 01:39 87 18 98 Facial 30 10/03/18 00:46 97 20 100 Nasal Cannula 2.0 28 10/03/18 00:35 94 20 98 Nasal Cannula 2.0 28 10/03/18 00:00 101 10/03/18 00:00 98.5 99 19 105/65 (78) 97 10/02/18 21:00 Nasal Cannula 3.0 10/02/18 20:17 99 20 99 Nasal Cannula 2.0 10/02/18 20:10 Nasal Cannula 2.0 10/02/18 20:09 97 Nasal Cannula 2.0 10/02/18 20:09 Nasal Cannula 2.0 10/02/18 20:08 97 20 97 Nasal Cannula 2.0 10/02/18 20:00 98.7 105 18 108/66 (80) 97 10/02/18 20:00 103 10/02/18 16:00 109 10/02/18 16:00 98.4 69 20 119/71 (87) 95 10/02/18 13:39 85 20 95 Nasal Cannula 2.0 28 10/02/18 13:39 85 20 98 Nasal Cannula 2.0 28 10/02/18 12:00 97.6 80 20 100/66 (77) 96 10/02/18 12:00 94 Intake and Output 10/02/18 10/03/18 19:00 07:00 Intake Total 515.000 ml Balance 515.000 ml Intake Oral 240 ml IV Total 275.000 ml # Voids 3 Height (Feet): 5 Height (Inches): 3.00 Weight (Pounds): 299 Melody Yee MD Oct 03, 2018 10:17
--- NOTE | 2018-10-03 11:44 | NUR ---
ST NOTE: BEDSIDE SWALLOW EVAL RECEIVED BEDSIDE SWALLOW EVAL ORDER CHART REVIEWED PRIOR THE EVALUATION REFERRED BY DR. MILIAN. PT IS A 58-YEAR-OLD FEMALE WHO WAS ADMITTED DUE TO DYSPNEA AND CHF. DYSPHAGIA RISK FACTORS: H/O CVA(10/2012), WITH R-SIDED WEAKNESS, MORBID OBESITY, DMII, COPD, ASTHMA. PER CXR: REDUCED LUNG VOLUME WITH PROBABLE MILD PATCHY BILATERAL INFILTRATE PER MD, DR. MILIAN'S NOTE: UPPER RESP INFECTION/TRACHEOBRONCHITIS VS EARLY PNA. PLOF: PT RESIDES AT HOME WITH FAMILY CURRENT STATUS: PT SEEN AT THE EDGE OF BED, ALERT, COOPERATIVE, FOLLOW DIRECTION, ORIENTED X 4. PT WITH NC(4L), NO SHORTNESS OF BREATH WAS NOTED. PT DENIED ANY SWALLOWING DIFFICULTY AFTER STROKE IN 2012. HOWEVER, PER PT AND PT'S DAUGHTER, PT HAS BEEN SPIT OUT WHITE MUCUS(LARGE AMOUNT- A BIG CUP-12 OZ), AND SOMETIMES HAS VOMITING EPISODE WITH BLOOD COMING UP FOR A PERIOD OF TIME. PT ALSO STATED THAT FOOD GET STUCK IN THE MIDDLE OF ESOPHAGUS BUT ABLE TO TAKE WATER TO WASH DOWN. PO WAS GIVEN : THIN(CUP-GIORGIO PROTOCOL), PUREE(TSP) AND CRACKER. INITIAL IMPRESSION: GOOD LABIAL AND LINGUAL RANGE OF MOTION AND STRENGTH SLOW BUT FUNCTIONAL MASTICATION TIME, GOOD ORAL TRANSIT TIME UNTIL PT INITIATED PHARYNGEAL SWALLOW, GOOD LARYNGEAL ELEVATION, NO OVERT S/S OF ASPIRATION. OVERALL, PT'S SWALLOWING FUNCTIONAL IS FUNCTIONAL. PT PROBABLE HAS SOME DEGREE(QUESTIONABLE SEVERITY) OF ESOPHAGEAL DYSPHAGIA. DUE TO PT HAS H/O CVA, AND UPPER RESP INFECTION, PT HAS SOME RISK FOR ASPIRATION. RECOMMENDATIONS: 1. CONTINUE CCHO(MEDIUM) REGULAR WITH THIN LIQUIDS. 2. ASPIRATION/REFLUX PRECAUTIONS 3. PT PROBABLY BENEFITS FROM MODIFIED BARIUM SWALLOW STUDY WITH AP VIEW IP OR OP. 4. CONSIDER GI CONSULT 5. RD CONSULT
[2018-10-03 12:00] VITALS: BP 102/53
--- NOTE | 2018-10-03 12:23 | Pulmonology Progress Note ---
Assessment/Plan Assessment/Plan ASSESSMENT: The patient is a 58-year-old female, nonsmoker with a history of asthma, presenting with an acute exacerbation of her asthma in the setting of a respiratory infection, upper respiratory infection/ tracheobronchitis versus early pneumonia. PROBLEM LIST: 1. Asthma with acute exacerbation. 2. Upper respiratory infection/tracheobronchitis versus early pneumonia. 3. GPC bacteremia 4. PRISCILLA, on CPAP. 5. Morbid obesity. 6. Likely obesity hypoventilation. 7. Diabetes, hypertension, hyperlipidemia, and prior CVA. 8. Mild pulmonary HTN TREATMENT PLAN: 1. Optimize pulmonary hygiene/mobilize as tolerated. 2. Titrate down FiO2 to keep saturations greater than 90%. 3. Continue Advair (auto sub for Symbicort). 4. Cuogy-guu-ccgrm and p.r.n. bronchodilators. 5. Off SM, start Pred 40 and taper. 6. Continue Rocephin, Vanco per ID, F/U Cx's. 7. F/U final Fx, may need LUCA if not CoNS 8. Monitor volumes and renal function. 9. DVT prophylaxis, heparin subcutaneous. 10. F/U CT chest 11. CPAP 10 cm of water nightly was ordered. 12. Weight loss, diet and exercise was discussed again today Subjective Allergies: Coded Allergies: ERYTHROMYCIN BASE (Verified Allergy, Severe, Shortness of Breath, 10/01/18) Per pt, states that she got "short of breath and spread out in hives" Subjective AFVSS on RA S aureus in the blood (awaiting speciation) less cough less wheezing + SOB S/p CT, awaiting results Objective Last 24 Hour Vital Signs Date Time Temp Pulse Resp B/P (MAP) Pulse Ox O2 Delivery O2 Flow Rate FiO2 10/03/18 09:00 Nasal Cannula 3.0 10/03/18 08:37 135/69 10/03/18 08:00 97.3 95 18 135/69 (91) 93 10/03/18 07:25 98 18 100 Nasal Cannula 2.0 28 10/03/18 07:25 98 Nasal Cannula 2.0 28 10/03/18 07:24 93 16 97 Nasal Cannula 2.0 28 10/03/18 07:24 76 16 97 Nasal Cannula 2.0 28 10/03/18 07:20 91 16 95 Nasal Cannula 2.0 28 10/03/18 05:14 89 16 99 Facial 30 10/03/18 04:00 97 10/03/18 04:00 97.5 97 19 136/85 (102) 98 10/03/18 03:29 85 17 99 Facial 30 10/03/18 01:39 87 18 98 Facial 30 10/03/18 00:46 97 20 100 Nasal Cannula 2.0 28 10/03/18 00:35 94 20 98 Nasal Cannula 2.0 28 10/03/18 00:00 101 10/03/18 00:00 98.5 99 19 105/65 (78) 97 10/02/18 21:00 Nasal Cannula 3.0 10/02/18 20:17 99 20 99 Nasal Cannula 2.0 28 10/02/18 20:10 Nasal Cannula 2.0 28 10/02/18 20:09 97 Nasal Cannula 2.0 28 10/02/18 20:09 Nasal Cannula 2.0 28 10/02/18 20:08 97 20 97 Nasal Cannula 2.0 28 10/02/18 20:00 98.7 105 18 108/66 (80) 97 10/02/18 20:00 103 10/02/18 16:00 109 10/02/18 16:00 98.4 69 20 119/71 (87) 95 10/02/18 13:39 85 20 95 Nasal Cannula 2.0 28 10/02/18 13:39 85 20 98 Nasal Cannula 2.0 28 Intake and Output 10/02/18 10/03/18 18:59 06:59 Intake Total 515.000 ml Balance 515.000 ml Intake Oral 240 ml IV Total 275.000 ml # Voids 3 General Appearance: WD/WN, no acute distress, other - obese female HEENT: normocephalic, atraumatic, anicteric, mucous membranes moist Respiratory/Chest: chest wall non-tender, expiratory wheezing Cardiovascular: normal peripheral pulses, normal rate, regular rhythm Abdomen: normal bowel sounds, soft, non tender, no organomegaly, non distended , no mass Extremities: no cyanosis, no clubbing, no edema Microbiology Date/Time Source Procedure Growth Status 09/30/18 23:59 Blood Blood Culture - Preliminary Staphylococcus Species Resulted 09/30/18 23:45 Blood Blood Culture - Preliminary Staphylococcus Species Resulted 10/01/18 17:34 Sputum Gram Stain - Final Complete 10/01/18 17:34 Sputum Sputum Culture - Final NORMAL UPPER RESPIRATORY FREDO PRESENT Complete Current Medications Medications (Trade) Dose Ordered Sig/John Route PRN Reason Start Time Stop Time Status Last Admin Dose Admin Acetaminophen (Tylenol) 650 mg Q4H PRN ORAL Mild Pain/Temp > 100.5 10/01/18 03:00 10/31/18 02:59 Acetaminophen/ Hydrocodone Bitart ([place] 10/325) 1 tab Q4H PRN ORAL For moderate-severe Pain >5/10 10/01/18 03:00 10/08/18 02:59 10/03/18 08:36 Albuterol/ Ipratropium (Albuterol/ Ipratropium) 3 ml Q4H PRN HHN Shortness of Breath 10/01/18 14:30 10/06/18 14:29 Albuterol/ Ipratropium (Albuterol/ Ipratropium) 3 ml Q6HRT HHN 10/01/18 19:00 10/06/18 18:59 10/03/18 07:53 Atorvastatin Calcium (Lipitor) 20 mg BEDTIME ORAL 10/01/18 21:00 10/31/18 20:59 10/02/18 20:33 Benazepril HCl (Lotensin) 10 mg DAILY ORAL 10/02/18 09:00 11/01/18 08:59 10/03/18 08:37 Ceftriaxone Sodium 2 gm/ Dextrose 55 ml @ 110 mls/hr Q24H IVPB 10/01/18 12:00 10/08/18 11:59 10/02/18 11:50 Dextrose (Dextrose 50%) 25 ml Q30M PRN IV Hypoglycemia 10/01/18 08:15 10/31/18 08:14 Dextrose (Dextrose 50%) 50 ml Q30M PRN IV Hypoglycemia 10/01/18 08:15 10/31/18 08:14 Doxycycline Monohydrate (Doxycycline Monohydrate) 100 mg EVERY 12 HOURS ORAL 10/01/18 21:00 10/08/18 09:01 10/03/18 08:37 Heparin Sodium (Porcine) (Heparin 5000 units/ml) 5,000 units EVERY 12 HOURS SUBQ 10/01/18 09:00 10/31/18 08:59 10/03/18 10:38 Hydrochlorothiazide (Hydrodiuril) 12.5 mg DAILY ORAL 10/02/18 09:00 11/01/18 08:59 10/03/18 08:36 Insulin Aspart (NovoLOG) BEFORE MEALS AND HS SUBQ 10/01/18 11:30 10/31/18 11:29 10/03/18 06:25 Insulin Aspart (NovoLOG) 6 units BEFORE MEALS SUBQ 10/03/18 11:30 11/02/18 06:29 Insulin Detemir (Levemir) 30 units BEDTIME SUBQ 10/03/18 21:00 11/01/18 21:59 Ketotifen Fumarate (Zatidor) 1 drop BID BOTH EYES 10/01/18 18:00 10/31/18 17:59 10/02/18 17:18 Metformin HCl (Glucophage) 1,000 mg BIDBL ORAL 10/02/18 06:30 11/01/18 06:29 10/03/18 06:19 Pantoprazole (Protonix) 40 mg DAILY ORAL 10/01/18 09:00 10/31/18 08:59 10/03/18 08:37 Pioglitazone HCl (Actos) 30 mg ACBREAKFAST ORAL 10/02/18 06:30 11/01/18 06:29 10/03/18 06:18 Promethazine HCl/ Codeine (Phenergan with Codeine) 10 ml TID PRN ORAL For Cough 10/01/18 03:00 10/31/18 02:59 10/02/18 22:20 Salmeterol Xinafoate/ Fluticasone (Advair 250/50 Diskus) 1 puffs BID INH 10/01/18 18:00 10/31/18 17:59 10/03/18 07:59 Sitagliptin Phosphate (Januvia) 25 mg ACBREAKFAST ORAL 10/02/18 06:30 11/01/18 06:29 10/03/18 06:18 Vancomycin HCl (Vanco rx to dose) 1 ea DAILY PRN MISC Per rx protocol 10/02/18 09:45 11/01/18 09:44 Vancomycin HCl 1 gm/Dextrose 275 ml @ 183.708 mls/hr Q12HR@1100,2300 IVPB 10/02/18 11:00 10/07/18 10:59 10/02/18 22:20 Oscar Pena MD 3, 2019 12:23
[2018-10-03] MEDS: Vancomycin 1gm/D5W 275ml IVPB SCH ×2 (12:34)
[2018-10-03] MEDS: cefTRIAXone 2 GM in D5W 55 ML IVPB SCH (12:34)
--- NOTE | 2018-10-03 13:08 | NUR ---
*-* NO INSURANCE INFORMATION IN THE BAR UNABLE TO SEND CLINICALS OR REVIEWS *-*
--- NOTE | 2018-10-03 13:23 | Diagnostic Imaging Report ---
Indication: Dyspnea Technique: Continuous helical transaxial imaging of the chest was obtained from the thoracic inlet to the upper abdomen. No intravenous contrast was administered. Coronal 2-D reformats were also obtained. Total Dose length Product (DLP): 1242.[address] Dose Index Volume (CTDIvol): 38.29 mGy Comparison: none Findings: Streaky densities at the lung bases likely atelectasis. Lungs are clear otherwise. Cardiomegaly is noted. No pleural or pericardial effusion demonstrated. Small hiatal hernia noted. The liver is diffusely hypodense consistent with fatty infiltration. Hypodensities partially imaged in the left kidney may be cystic or solid not adequately evaluated on this examination. IMPRESSION: Mild basal atelectasis. Fatty liver Suggestion of renal cysts within the upper pole left kidney not adequately evaluated on the current study. Small hiatal hernia The CT scanner at [facility], [place] is accredited by the [employer] and the scans are performed using dose optimization techniques as appropriate to a performed exam including Automatic Exposure control.
[2018-10-03 16:00] VITALS: BP 104/63
--- NOTE | 2018-10-03 16:29 | NUR ---
*-* INSURANCE *-* ALL CLINICALS AND REVIEWS HAVE BEEN FAXED TO: [facility] F:[phone]
--- NOTE | 2018-10-03 17:15 | Consultation ---
DATE OF CONSULTATION: 10/01/2018 CARDIOLOGY CONSULTATION CONSULTING PHYSICIAN: Anand Nelson M.D. REFERRING PHYSICIAN: Melody Yee M.D. REASON FOR CONSULTATION: Management of dyspnea and evaluation and assessment of possible congestive heart failure. HISTORY OF PRESENT ILLNESS: The patient is a very pleasant 58-year-old female, who presents to the hospital with complaints of productive cough, chest congestion, shortness of breath, and bilateral lower extremity edema that has been going on for the past two days. At the time of arrival of the patient to the hospital, the patient denied any chest pain. Her cardiovascular risk factors includes diabetes mellitus and hypertension as well as morbid obesity. The patient also suffers from sleep apnea and states that she has had a history of cerebrovascular accident with some left side hemiparesis. At the time of arrival to the hospital, blood pressure was 100/73 mmHg and heart rate was 90. A 12-lead electrocardiogram was significant for sinus rhythm at a rate of 77 with no evidence of acute ischemic features. A chest x-ray showed bilateral patchy infiltrates suggestive of pneumonia. PAST MEDICAL HISTORY: 1. History of asthma/COPD. 2. Diabetes mellitus. 3. Hypertension. 4. Morbid obesity. 5. Sleep apnea. 6. Fibromyalgia. 7. CVA with left-sided deficits. 8. History of seizures. PAST SURGICAL HISTORY: None. ALLERGIES: Erythromycin. MEDICATIONS: List of medication including albuterol two puffs inhaler q.6 h., amoxicillin 500 mg three times a day, benazepril 10 mg p.o. daily, benzonatate 100 mg three times a day, Symbicort 80-4.5 mcg inhaler once daily, cephalexin 500 mg q.6 h., promethazine with codeine 5 mL q.6 h. p.r.n. cough, gabapentin 100 mg three times a day, cough syrup Tylenol Cold Head Congestion one tablespoon every six hours, [place] 5/325 mg one tablet q.6 h. p.r.n. pain, metformin 1000 mg p.o. daily, Patanol eye drops, prednisone 40 mg p.o. daily possibly tapering dose, simvastatin 5 mg p.o. nightly, and Nasacort 10.8 mL nasal spray daily for 14 days. FAMILY HISTORY: No premature coronary artery disease in first-degree relatives. SOCIAL HISTORY: Denies any tobacco, alcohol, or illicit drug use. PHYSICAL EXAMINATION: VITAL SIGNS: Blood pressure was 100/73, respirations 20, pulse 90, and temperature 97.9 degrees Fahrenheit. O2 saturation 94% on room air. GENERAL: The patient is a very delightful 58-year-old lady, morbidly obese, in mild respiratory distress, wearing a face mask. HEENT: Atraumatic and normocephalic. Anicteric. Pupils are equal, round, and reactive to light and accommodation. Extraocular muscles intact. NECK: Cannot assess JVP due to short neck and obesity. No carotid bruit. CARDIOVASCULAR: Normal S1, S2. Regular rate and rhythm. No murmurs, gallops, or rubs. PMI is at fourth intercostal space in the midclavicular line. LUNGS: Diminished breath sounds with bilateral rhonchi, diffuse in both lungs. ABDOMEN: Obese. No hepatosplenomegaly. Soft. Positive bowel sounds. EXTREMITIES: There is 1 to 2+ bilateral lower extremity edema. No clubbing or cyanosis. LABORATORY FINDINGS: WBC was 13.1, hemoglobin 13.2, hematocrit 39.2%, and platelet count 312. Sodium was 138, potassium 4.0, chloride 100, bicarbonate 33, BUN 12, and creatinine 0.9. Glucose 184. Calcium 9.8. Troponin I was 0. ProBNP was 6. ASSESSMENT AND PLAN: This is a very unfortunate 58-year-old female, who was seen in Cardiology consultation. 1. Dyspnea, possible etiologies include acute exacerbation of chronic obstructive pulmonary disease. The patient has already been initiated on a treatment including prednisone tapering dose, cough syrup benzonatate and inhalers in the outpatient setting, which apparently did not work. Pulmonary consultation with Dr. Pena has been made. From the cardiac standpoint, essentially normal beta-natriuretic factor rules out congestive heart failure. I would, however, consider obtaining 2-D echocardiography to assess LV systolic function as well as diastolic data which helps with the hemodynamic evaluation. Further therapeutic and diagnostic decision will be based on the results of the 2-D echocardiography. Another mechanism for shortness of breath is obesity hypoventilation syndrome or obstructive sleep apnea in this patient, which will be detailed by pulmonary data consultant. 2. Lower extremity edema could be venous insufficiency, use of prednisone with associated water or sodium retention, or other venous compressive device in the pelvic area, which requires to be dealt with imaging studies. Again, a 2-D echocardiography will shed light on inferior vena cava diameter as well as function and also intracardiac filling pressures. 3. Morbid obesity. We will obtain fasting lipid panel for CAD risk stratification. 4. History of diabetes mellitus. 5. History of fibromyalgia. 6. History of cerebrovascular accident with left hemiparesis. The patient requires to be on aspirin and statins. I would like to thank Dr. Yee for allowing me to participate in the care of this patient. Anand Nelson M.D. DR: GEO JOB#: [id number] CC:
--- NOTE | 2018-10-03 17:49 | Infectious Diseases Prog Note ---
Assessment/Plan Problems: (1) Bacteremia due to Gram-positive bacteria Assessment & Plan: continue vancomycin empirically pending identification and sensitivity . transthoracic echo showed no vegetations . will repeat blood culture to confirm clearance (2) COPD (chronic obstructive pulmonary disease) Assessment & Plan: with exacerbations due to the above, continue inhalers, antibiotics and taper steroids (3) Edema of both legs Assessment & Plan: possible heart failure related, continue diuresis as per cardiology (4) Diabetes mellitus Assessment & Plan: recommend tight glycemic control to keep blood glucose between 100-140 Subjective Constitutional: Reports: no symptoms HEENT: Reports: no symptoms Respiratory: Reports: no symptoms Breasts: Reports: no symptoms Cardiovascular: Reports: no symptoms Gastrointestinal/Abdominal: Reports: no symptoms Genitourinary: Reports: no symptoms Neurologic: Reports: no symptoms Psychiatric: Reports: no symptoms Skin: Reports: no symptoms Endocrine: Reports: no symptoms Hematologic: Reports: no symptoms Musculoskeletal: Reports: no symptoms Allergies: Coded Allergies: ERYTHROMYCIN BASE (Verified Allergy, Severe, Shortness of Breath, 10/01/18) Per pt, states that she got "short of breath and spread out in hives" Objective Vital Signs Last 24 Hour Vital Signs Date Time Temp Pulse Resp B/P (MAP) Pulse Ox O2 Delivery O2 Flow Rate FiO2 10/03/18 16:00 97.7 95 18 104/63 (77) 96 10/03/18 13:20 99 18 100 Nasal Cannula 2.0 28 10/03/18 13:14 89 16 96 Nasal Cannula 2.0 28 10/03/18 12:00 96.8 100 18 102/53 (69) 98 10/03/18 12:00 88 10/03/18 09:00 Nasal Cannula 3.0 10/03/18 08:37 135/69 10/03/18 08:00 95 10/03/18 08:00 97.3 95 18 135/69 (91) 93 10/03/18 07:25 98 18 100 Nasal Cannula 2.0 10/03/18 07:25 98 Nasal Cannula 2.0 28 10/03/18 07:24 93 16 97 Nasal Cannula 2.0 28 10/03/18 07:24 76 16 97 Nasal Cannula 2.0 28 10/03/18 07:20 91 16 95 Nasal Cannula 2.0 28 10/03/18 05:14 89 16 99 Facial 30 10/03/18 04:00 97 10/03/18 04:00 97.5 97 19 136/85 (102) 98 10/03/18 03:29 85 17 99 Facial 30 10/03/18 01:39 87 18 98 Facial 30 10/03/18 00:46 97 20 100 Nasal Cannula 2.0 28 10/03/18 00:35 94 20 98 Nasal Cannula 2.0 28 10/03/18 00:00 101 10/03/18 00:00 98.5 99 19 105/65 (78) 97 10/02/18 21:00 Nasal Cannula 3.0 10/02/18 20:17 99 20 99 Nasal Cannula 2.0 28 10/02/18 20:10 Nasal Cannula 2.0 28 10/02/18 20:09 97 Nasal Cannula 2.0 28 10/02/18 20:09 Nasal Cannula 2.0 28 10/02/18 20:08 97 20 97 Nasal Cannula 2.0 28 10/02/18 20:00 98.7 105 18 108/66 (80) 97 10/02/18 20:00 103 Height (Feet): 5 Height (Inches): 3.00 Weight (Pounds): 299 General Appearance: WD/WN, no acute distress HEENT: normocephalic, atraumatic, anicteric, mucous membranes moist, PERRL Respiratory/Chest: chest wall non-tender, lungs clear, normal breath sounds, no respiratory distress, no accessory muscle use Cardiovascular: normal peripheral pulses, normal rate, regular rhythm, no gallop/murmur, no JVD Abdomen: normal bowel sounds, soft, non tender, no organomegaly, non distended , no mass, no scars Genitourinary: normal external genitalia Extremities: no cyanosis, no clubbing Skin: no rash, no lesions, no ulcers Neurologic/Psychiatric: filbert grower II-XII grossly normal, no motor/sensory deficits, abnormal gait, alert, oriented x 3, responsive Lymphatic: no neck adenopathy, no groin adenopathy Musculoskeletal: normal muscle bulk, no effusion Microbiology Date/Time Source Procedure Growth Status 09/30/18 23:59 Blood Blood Culture - Preliminary Staphylococcus Species Resulted 09/30/18 23:45 Blood Blood Culture - Preliminary Staphylococcus Species Resulted 10/01/18 17:34 Sputum Gram Stain - Final Complete 10/01/18 17:34 Sputum Sputum Culture - Final NORMAL UPPER RESPIRATORY FREDO PRESENT Complete Current Medications Medications (Trade) Dose Ordered Sig/John Route PRN Reason Start Time Stop Time Status Last Admin Dose Admin Acetaminophen (Tylenol) 650 mg Q4H PRN ORAL Mild Pain/Temp > 100.5 10/01/18 03:00 10/31/18 02:59 Acetaminophen/ Hydrocodone Bitart ([place] 10/325) 1 tab Q4H PRN ORAL For moderate-severe Pain >5/10 10/01/18 03:00 10/08/18 02:59 10/03/18 08:36 Albuterol/ Ipratropium (Albuterol/ Ipratropium) 3 ml Q4H PRN HHN Shortness of Breath 10/01/18 14:30 10/06/18 14:29 Albuterol/ Ipratropium (Albuterol/ Ipratropium) 3 ml Q6HRT HHN 10/01/18 19:00 10/06/18 18:59 10/03/18 13:14 Atorvastatin Calcium (Lipitor) 20 mg BEDTIME ORAL 10/01/18 21:00 10/31/18 20:59 10/02/18 20:33 Benazepril HCl (Lotensin) 10 mg DAILY ORAL 10/02/18 09:00 11/01/18 08:59 10/03/18 08:37 Ceftriaxone Sodium 2 gm/ Dextrose 55 ml @ 110 mls/hr Q24H IVPB 10/01/18 12:00 10/08/18 11:59 10/03/18 12:34 Dextrose (Dextrose 50%) 25 ml Q30M PRN IV Hypoglycemia 10/01/18 08:15 10/31/18 08:14 Dextrose (Dextrose 50%) 50 ml Q30M PRN IV Hypoglycemia 10/01/18 08:15 10/31/18 08:14 Doxycycline Monohydrate (Doxycycline Monohydrate) 100 mg EVERY 12 HOURS ORAL 10/01/18 21:00 10/08/18 09:01 10/03/18 08:37 Heparin Sodium (Porcine) (Heparin 5000 units/ml) 5,000 units EVERY 12 HOURS SUBQ 10/01/18 09:00 10/31/18 08:59 10/03/18 10:38 Hydrochlorothiazide (Hydrodiuril) 12.5 mg DAILY ORAL 10/02/18 09:00 11/01/18 08:59 10/03/18 08:36 Insulin Aspart (NovoLOG) BEFORE MEALS AND HS SUBQ 10/01/18 11:30 10/31/18 11:29 10/03/18 12:41 Insulin Aspart (NovoLOG) 6 units BEFORE MEALS SUBQ 10/03/18 11:30 11/02/18 06:29 10/03/18 11:30 Insulin Detemir (Levemir) 30 units BEDTIME SUBQ 10/03/18 21:00 11/01/18 21:59 Ketotifen Fumarate (Zatidor) 1 drop BID BOTH EYES 10/01/18 18:00 10/31/18 17:59 10/02/18 17:18 Metformin HCl (Glucophage) 1,000 mg BIDBL ORAL 10/02/18 06:30 11/01/18 06:29 10/03/18 12:34 Pantoprazole (Protonix) 40 mg DAILY ORAL 10/01/18 09:00 10/31/18 08:59 10/03/18 08:37 Pioglitazone HCl (Actos) 30 mg ACBREAKFAST ORAL 10/02/18 06:30 11/01/18 06:29 10/03/18 06:18 Prednisone (predniSONE) 40 mg DAILY ORAL 10/04/18 09:00 11/03/18 08:59 Promethazine HCl/ Codeine (Phenergan with Codeine) 10 ml TID PRN ORAL For Cough 10/01/18 03:00 10/31/18 02:59 10/02/18 22:20 Salmeterol Xinafoate/ Fluticasone (Advair 250/50 Diskus) 1 puffs BID INH 10/01/18 18:00 10/31/18 17:59 10/03/18 07:59 Sitagliptin Phosphate (Januvia) 25 mg ACBREAKFAST ORAL 10/02/18 06:30 11/01/18 06:29 10/03/18 06:18 Vancomycin HCl (Vanco rx to dose) 1 ea DAILY PRN MISC Per rx protocol 10/02/18 09:45 11/01/18 09:44 Vancomycin HCl 1 gm/Dextrose 275 ml @ 183.708 mls/hr Q12HR@1100,2300 IVPB 10/02/18 11:00 10/07/18 10:59 10/03/18 12:34 Dedrick Goldman M.D. Oct 03, 2018 17:49
--- NOTE | 2018-10-03 19:15 | NUR ---
HAND-OFF: Report given to ELIO Manzano. No acute s/s of distress noted.
[2018-10-03 20:00] VITALS: BP 124/79
--- NOTE | 2018-10-03 21:00 | Consultation ---
DATE OF CONSULTATION: 10/02/2018 INFECTIOUS DISEASE CONSULTATION CONSULTING PHYSICIAN: Dedrick Goldman M.D. REFERRING PHYSICIAN: Melody Yee M.D. REASON FOR CONSULTATION: Bacteremia with gram-positive cocci. Recommendation for antibiotics treatment. HISTORY OF PRESENT ILLNESS: The patient is a 58-year-old female with past medical history of hypertension, obesity, hyperlipidemia, obstructive sleep apnea, asthma, CVA and diabetes, presented with few days of cough, congestion, shortness of breath and bilateral lower extremity edema, which has been getting worse over the last couple of weeks. The patient has been using inhalers and nebulizer at home without significant benefit. She had more wheezing and shortness of breath and swelling in her legs. No fever or chills. No recent travel or sick contact. No nausea, vomiting, or diarrhea. In the emergency room, the patient had a chest x-ray, which showed patchy scattered lung infiltration concerning for pneumonia. The patient was started on ceftriaxone and doxycycline and she was admitted to the hospital for further evaluation and management, and started on diuretics. Blood culture was obtained upon admission and this has been growing gram-positive cocci in cluster in both sets. Infectious disease consultation is requested for antibiotics treatment and further management. REVIEW OF SYSTEMS: A 14-point of system reviewed, were all negative apart from the one I mentioned above in my H and P. PAST MEDICAL HISTORY: Significant for obstructive sleep apnea, obesity, asthma, diabetes, hyperlipidemia, hypertension, and prior CVA. PAST SURGICAL HISTORY: Negative. ALLERGIES: She is allergic to erythromycin. MEDICATIONS: She is currently on ceftriaxone and doxycycline. For rest of her medications, please refer to MAR. FAMILY HISTORY: Noncontributory. SOCIAL HISTORY: The patient lives at home with family, unemployed. Denied using any drugs, tobacco, or alcohol. PHYSICAL EXAMINATION: VITAL SIGNS: Temperature 97.6, pulse 80, respirations 20, and blood pressure 100/66. Pulse oximetry 96% on 3 L nasal cannula. GENERAL: Middle-aged female, lying in bed. Morbidly obese. Awake and alert, breathing okay, not in acute distress. HEENT: Normocephalic and atraumatic. Pupils are reactive to light. Moist oral mucosa. No exudate or thrush. NECK: Supple. No lymphadenopathy. CARDIOVASCULAR: Regular rate and rhythm. No murmur or gallop. LUNGS: She had diminished breathing sounds with some crackles. ABDOMEN: Soft, obese, nontender, and nondistended. Normal bowel sounds. No hepatosplenomegaly. No ascites. EXTREMITIES: Trace edema. No cyanosis. Skin dry. No clubbing. LABORATORY AND DIAGNOSTIC DATA: Labs showed white count 11.4, hemoglobin 13.1, and platelet count 285. BUN 13, creatinine 1. AST 12, ALT 31. Microbiology - blood culture x2 on 09/30/2018 is growing gram-positive cocci in clusters. Sputum culture is pending. IMAGING: Chest x-ray showed reduced lung volumes with probably mild patchy bilateral infiltration. ASSESSMENT AND RECOMMENDATION: 1. Bacteremia with gram-positive cocci, source unclear at this point pending identification. We will start vancomycin empirically pending final culture and sensitivity. Transthoracic echo showed no vegetation so far. We will repeat blood culture in the future to confirm clearance. She will need minimum two weeks of IV antibiotics treatment. 2. Asthma with exacerbation, suspect bronchitis. Continue inhalers and antibiotics as per Pulmonary and taper steroid. 3. Edema of both lower extremity, suspect heart failure related. Continue diuretics per Cardiology. 4. Diabetes mellitus. Recommend tight glycemic control to keep blood glucose between 100 to 140. Thank you for the consult. Infectious Disease will continue to follow. Dedrick Goldman M.D. DR: SEVERIANO JOB#: [id number] CC:
[2018-10-03] MEDS: Atorvastatin 20mg tab ORAL SCH (21:03)
[2018-10-03] MEDS: Levemir Flexpen SUBQ SCH (21:07)
[2018-10-03] MEDS: Promethazine/Codeine 5ml UD ORAL PRN (21:12)
--- NOTE | 2018-10-03 23:11 | Cardiology Progress Note ---
Assessment/Plan Assessment/Plan 1. Dyspnea, possible etiologies include acute exacerbation of chronic obstructive pulmonary disease vs PRISCILLA. 2. Lower extremity edema could be venous insufficiency, use of prednisone with associated water or sodium retention. 3. Morbid obesity. We will obtain fasting lipid panel for CAD riskstratification. 4. History of diabetes mellitus. 5. History of fibromyalgia. 6. History of cerebrovascular accident with left hemiparesis. Subjective Subjective Sinus rhythm at rate of 85. Objective Last 24 Hour Vital Signs Date Time Temp Pulse Resp B/P (MAP) Pulse Ox O2 Delivery O2 Flow Rate FiO2 10/03/18 19:59 95 18 98 Nasal Cannula 2.0 28 10/03/18 19:49 95 18 95 Room Air 21 10/03/18 19:48 94 Room Air 21 10/03/18 19:48 95 18 95 Room Air 10/03/18 19:48 95 18 95 Room Air 10/03/18 16:00 97.7 95 18 104/63 (77) 96 10/03/18 16:00 93 10/03/18 13:20 99 18 100 Nasal Cannula 2.0 10/03/18 13:14 89 16 96 Nasal Cannula 2.0 10/03/18 12:00 96.8 100 18 102/53 (69) 98 10/03/18 12:00 88 10/03/18 09:00 Nasal Cannula 3.0 10/03/18 08:37 135/69 10/03/18 08:00 95 10/03/18 08:00 97.3 95 18 135/69 (91) 93 10/03/18 07:25 98 18 100 Nasal Cannula 2.0 10/03/18 07:25 98 Nasal Cannula 2.0 28 10/03/18 07:24 93 16 97 Nasal Cannula 2.0 28 10/03/18 07:24 76 16 97 Nasal Cannula 2.0 28 10/03/18 07:20 91 16 95 Nasal Cannula 2.0 10/03/18 05:14 89 16 99 Facial 30 10/03/18 04:00 97 10/03/18 04:00 97.5 97 19 136/85 (102) 98 10/03/18 03:29 85 17 99 Facial 30 10/03/18 01:39 87 18 98 Facial 30 10/03/18 00:46 97 20 100 Nasal Cannula 2.0 28 10/03/18 00:35 94 20 98 Nasal Cannula 2.0 28 10/03/18 00:00 101 10/03/18 00:00 98.5 99 19 105/65 (78) 97 Intake and Output 10/02/18 10/03/18 19:00 07:00 Intake Total 515.000 ml Balance 515.000 ml Intake Oral 240 ml IV Total 275.000 ml # Voids 3 2D Echo: LVEF 55%, Mild LAE, RVSP 41 mmHg, Grade I LVDD Laboratory Tests Test 10/03/18 21:48 Vancomycin Level Trough 14.6 ug/mL (5.0-12.0) H Microbiology Date/Time Source Procedure Growth Status 09/30/18 23:59 Blood Blood Culture - Preliminary Staphylococcus Species Resulted 09/30/18 23:45 Blood Blood Culture - Preliminary Staphylococcus Species Resulted 10/01/18 17:34 Sputum Gram Stain - Final Complete 10/01/18 17:34 Sputum Sputum Culture - Final NORMAL UPPER RESPIRATORY FREDO PRESENT Complete Objective HEENT: Atraumatic and normocephalic. Anicteric. Pupils are equal, round, and reactive to light and accommodation. Extraocular muscles intact. NECK: Cannot assess JVP due to short neck and obesity. No carotid bruit. CARDIOVASCULAR: Normal S1, S2. Regular rate and rhythm. No murmurs, gallops, or rubs. PMI is at fourth intercostal space in the midclavicular line. LUNGS: Diminished breath sounds with bilateral rhonchi, diffuse in both lungs. ABDOMEN: Obese. No hepatosplenomegaly. Soft. Positive bowel sounds. EXTREMITIES: There is 1 to 2+ bilateral lower extremity edema. No clubbing or cyanosis. Anand Nelson MD Oct 03, 2018 23:11
[2018-10-04] VITALS: BP 109/73
[2018-10-04] MEDS: Vancomycin 1.25gm Premix 275 ML IVPB SCH ×3 (00:15→23:29)
[2018-10-04] MEDS: Albuterol/Ipratropium 3ml neb HHN SCH ×4 (01:24→20:17)
[2018-10-04 04:00] VITALS: BP 111/58
[2018-10-04] MEDS: metFORMIN 500mg tab ORAL SCH ×2 (06:45→12:39)
[2018-10-04] MEDS: NovoLOG Insulin Flexpen SUBQ SCH ×7 (06:51→21:23)
--- NOTE | 2018-10-04 07:23 | NUR ---
NURSE NOTES: Received report from merary BALLARD. Pt AOX4 able to make needs known. Noted steady ambulation without assist. Bed in its lowest position and locked. No c/o pain. IV in right hand with 20g SL intact and symptomatic. No signs of distress noted. Denied SOB on room air. Sinus rhythm noted during awake overnight counselor. Will continue to monitor with current plan of care.
--- NOTE | 2018-10-04 07:30 | NUR ---
NURSE NOTES: Report given to Min RN. Plan of care endorsed.
[2018-10-04 08:00] VITALS: BP 120/84
--- NOTE | 2018-10-04 09:19 | NUR ---
*-* INSURANCE *-* UPDATED CLINICALS HAVE BEEN FAXED: RENEE F:[phone]
[2018-10-04] MEDS: Benazepril 10mg tab ORAL SCH (09:40)
[2018-10-04] MEDS: hydroCHLOROthiazide 12.5mg TAB ORAL SCH (09:53)
[2018-10-04] MEDS: Heparin 5000 units/ml inj SUBQ SCH ×2 (09:54→21:09)
[2018-10-04] MEDS: Ketotifen Fumarate 0.035% 5ml BOTH EYES SCH ×2 (09:58→17:53)
--- NOTE | 2018-10-04 10:00 | Consultation ---
DATE OF CONSULTATION: 10/04/2018 ENDOCRINOLOGY CONSULTATION CONSULTING PHYSICIAN: Stuart Layton M.D. REFERRING PHYSICIAN: Melody Yee M.D. REASON FOR CONSULTATION: Diabetes management. HISTORY OF PRESENT ILLNESS: The patient is a 58-year-old male with past medical history of hypertension, diabetes, hyperlipidemia, obesity, sleep apnea, asthma, CVA, and diabetes who presented with a few days of cough, congestion, shortness of breath, and bilateral lower extremity edema which has been getting worse over the past couple of weeks. The patient has been using inhaler and nebulizer at home without significant improvement. The patient presented to the hospital with wheezing, was treated with steroids, which raised the glucose significantly that is why Endocrinology was consulted to assist in the management of diabetes. PAST MEDICAL HISTORY: 1. Sleep apnea. 2. Obesity. 3. Asthma. 4. Diabetes. 5. Hypertension. 6. Hyperlipidemia. 7. Prior CVA. PAST SURGICAL HISTORY: None. ALLERGIES: To erythromycin. MEDICATIONS: Reviewed and reconciled. FAMILY HISTORY: Noncontributory. SOCIAL HISTORY: The patient lives at home. No smoking, alcohol, or drug use. REVIEW OF SYSTEMS: A 12-point review of systems was performed and pertinent positives and negatives are mentioned in history of present illness. PHYSICAL EXAMINATION: VITAL SIGNS: Blood pressure is 100/60, pulse of 80, temperature 98.2, and respiratory rate 18. HEENT: Pupils are equal and reactive to light. Sclerae anicteric. NECK: No JVD. HEART: Regular. LUNGS: Wheezing. ABDOMEN: Positive bowel sounds. EXTREMITIES: Positive for edema. LABORATORY VALUES: Sodium 140, potassium 3.9, chloride 102, bicarb 31, BUN 13, creatinine 1.0, and glucose 266. Hemoglobin A1c of 7.6. WBC 11.4, hemoglobin 13, hematocrit 41, and platelets of 285. DIAGNOSES: 1. Bacteremia. 2. Asthma exacerbation. 3. Obesity. 4. Diabetes exacerbated by steroids. PLAN: 1. I agree with Levemir 30 units at bedtime. 2. Increase NovoLog to 10 units before each meal. 3. Increase Januvia to 100 mg daily. 4. Continue Actos and metformin at current dose. 5. NovoLog sliding scale before meals and at bedtime. 6. Further adjustment according to blood glucose values. Thank you Dr. Yee for requesting this consultation. Stuart Layton M.D. DR: Michael JOB#: [id number] CC:
[2018-10-04] MEDS: Promethazine/Codeine 5ml UD ORAL PRN (10:08)
[2018-10-04] MEDS: HYDROcodone/Acetamin 10/325 tab ORAL PRN (10:09)
--- NOTE | 2018-10-04 10:11 | NUR ---
CASE MANAGEMENT:REVIEW 10/03/18 SI: ASTHMA EXACERBATION BACTEREMIA. PULMONARY EDEMA. BILATERAL INFILTRATES 96.8 100 18 102/53 98% ON 3L/NC IS: IV SOLUMEDROL Q12 IV VANCOMYCIN Q12 IV ROCEPHIN Q24 DOXYCYCLINE PO Q12 HCTZ PO QD DUONEB HHN Q6HRS RTC DISKUS INH BID : TELEMETRY STATUS DCP: FROM HOME 10/04/18 SI: ASTHMA EXACERBATION BACTEREMIA. PULMONARY EDEMA. BILATERAL INFILTRATES 98.4 107 18 120/84 99% ON RA IS: PREDNISONE PO QD IV VANCOMYCIN Q12 IV ROCEPHIN Q24 SS INSULIN AC+HS LEVEMIR SQ QHS METFORMIN PO BID LOTENSIN PO QD HCTZ PO QD : TELEMETRY STATUS DCP: FROM HOME
--- NOTE | 2018-10-04 10:47 | General Progress Note ---
Assessment/Plan Assessment/Plan: S: I am still very fatigued O: Appears comfortable, reported still complaining of sob. PHYSICAL EXAMINATION:HEENT: Atraumatic and normocephalic. CHEST: Diffuse bronchial breathing sounds. Heart: 2 + DUSTIN, Mild diffuse wheezing. MUSCULOSKELETAL: No gross lateralized motor deficit. Positive for 2+ pitting edema in the lower extremity.NEUROLOGY: Awake, alert, and oriented x3. ABDOMEN: Soft. No organomegaly. Morbidly obese. Meds: reviewed and reconciled in the chart IMAGING: Chest x-ray dated September 30, 2018 shows bilateral patchy infiltrates. ASSESSMENT: 1. Asthma exacerbation. 2. Bactremia- Gr positive 2. Pulmonary edema in conjunction with lower extremity edema, likely secondary to new onset heart failure. 3. Morbid obesity. 4. Diabetes type 2. 5. GI and DVT prophylaxis. PLAN OF CARE: Contamination of Blood c/s will optimse diabetic medication , per Endo Subjective Allergies: Coded Allergies: ERYTHROMYCIN BASE (Verified Allergy, Severe, Shortness of Breath, 10/01/18) Per pt, states that she got "short of breath and spread out in hives" Objective Last 24 Hour Vital Signs Date Time Temp Pulse Resp B/P (MAP) Pulse Ox O2 Delivery O2 Flow Rate FiO2 10/04/18 09:40 120/84 10/04/18 08:00 98.4 107 18 120/84 (96) 99 10/04/18 07:11 97 Room Air 21 10/04/18 07:11 Room Air 21 10/04/18 07:11 Room Air 21 10/04/18 05:37 82 14 97 Facial 30 10/04/18 04:00 97.6 86 18 111/58 (75) 97 10/04/18 03:59 82 10/04/18 03:29 86 16 97 Facial 30 10/04/18 01:42 94 15 98 Facial 30 10/04/18 01:36 94 18 98 Bi-pap 30 10/04/18 01:24 96 18 94 Room Air 21 10/04/18 00:00 98.3 94 18 109/73 (85) 95 10/03/18 23:29 109 10/03/18 21:00 Nasal Cannula 3.0 10/03/18 20:00 98.0 96 18 124/79 (94) 100 10/03/18 19:59 95 18 98 Nasal Cannula 2.0 28 10/03/18 19:50 95 10/03/18 19:49 95 18 95 Room Air 10/03/18 19:48 94 Room Air 10/03/18 19:48 95 18 95 Room Air 10/03/18 19:48 95 18 95 Room Air 10/03/18 16:00 97.7 95 18 104/63 (77) 96 10/03/18 16:00 93 10/03/18 13:20 99 18 100 Nasal Cannula 2.0 28 10/03/18 13:14 89 16 96 Nasal Cannula 2.0 28 10/03/18 12:00 96.8 100 18 102/53 (69) 98 10/03/18 12:00 88 Intake and Output 10/03/18 10/04/18 19:00 07:00 Intake Total 1197.416 ml 275 ml Balance 1197.416 ml 275 ml Intake Oral 720 ml IV Total 477.416 ml 275 ml # Voids 3 2 Laboratory Tests 10/03/18 21:48: Vancomycin Level Trough 14.6H Height (Feet): 5 Height (Inches): 3.00 Weight (Pounds): 299 Melody Yee MD Oct 04, 2018 10:47
[2018-10-04] MEDS: Wixela 250/50 Inhaler - 60 dose INH SCH ×2 (11:26→20:17)
[2018-10-04 12:00] VITALS: BP 114/76
--- NOTE | 2018-10-04 12:06 | Pulmonology Progress Note ---
Assessment/Plan Assessment/Plan ASSESSMENT: The patient is a 58-year-old female, nonsmoker with a history of asthma, presenting with an acute exacerbation of her asthma in the setting of a respiratory infection, upper respiratory infection/ tracheobronchitis versus early pneumonia. PROBLEM LIST: 1. Asthma with acute exacerbation. 2. Upper respiratory infection/tracheobronchitis versus early pneumonia. 3. S epidermidis bacteremia 4. PRISCILLA, on CPAP. 5. Morbid obesity. 6. Likely obesity hypoventilation. 7. Diabetes, hypertension, hyperlipidemia, and prior CVA. 8. Mild pulmonary HTN TREATMENT PLAN: 1. Optimize pulmonary hygiene/mobilize as tolerated. 2. Titrate down FiO2 to keep saturations greater than 90%. 3. Continue Advair (auto sub for Symbicort). 4. [id number]-smpmq and p.r.n. bronchodilators. 5. Continue Pred 40 and taper. 6. Abx per ID, F/U Cx's. 7. Defer to ID Re: LUCA, TTE neg for veg 8. Monitor volumes and renal function. 9. DVT prophylaxis, heparin subcutaneous. 10. CT chest reviewed 11. CPAP 10 cm of water nightly was ordered. 12. Weight loss, diet and exercise was discussed again today Subjective Allergies: Coded Allergies: ERYTHROMYCIN BASE (Verified Allergy, Severe, Shortness of Breath, 10/01/18) Per pt, states that she got "short of breath and spread out in hives" Subjective AFVSS on RA S epidermidis on final speciation less cough less wheezing + SOB CT with streaks of atx o/w unremarkable Objective Last 24 Hour Vital Signs Date Time Temp Pulse Resp B/P (MAP) Pulse Ox O2 Delivery O2 Flow Rate FiO2 10/04/18 09:40 120/84 10/04/18 09:00 78 20 97 Room Air 21 10/04/18 09:00 78 20 97 Room Air 21 10/04/18 08:00 98.4 107 18 120/84 (96) 99 10/04/18 07:11 97 Room Air 21 10/04/18 07:11 Room Air 21 10/04/18 07:11 Room Air 21 10/04/18 05:37 82 14 97 Facial 30 10/04/18 04:00 97.6 86 18 111/58 (75) 97 10/04/18 03:59 82 10/04/18 03:29 86 16 97 Facial 30 10/04/18 01:42 94 15 98 Facial 30 10/04/18 01:36 94 18 98 Bi-pap 30 10/04/18 01:24 96 18 94 Room Air 21 10/04/18 00:00 98.3 94 18 109/73 (85) 95 10/03/18 23:29 109 10/03/18 21:00 Nasal Cannula 3.0 10/03/18 20:00 98.0 96 18 124/79 (94) 100 10/03/18 19:59 95 18 98 Nasal Cannula 2.0 28 10/03/18 19:50 95 10/03/18 19:49 95 18 95 Room Air 21 10/03/18 19:48 94 Room Air 21 10/03/18 19:48 95 18 95 Room Air 21 10/03/18 19:48 95 18 95 Room Air 21 10/03/18 16:00 97.7 95 18 104/63 (77) 96 10/03/18 16:00 93 10/03/18 13:20 99 18 100 Nasal Cannula 2.0 28 10/03/18 13:14 89 16 96 Nasal Cannula 2.0 28 Intake and Output 10/03/18 10/04/18 19:00 07:00 Intake Total 1197.416 ml 275 ml Balance 1197.416 ml 275 ml Intake Oral 720 ml IV Total 477.416 ml 275 ml # Voids 3 2 General Appearance: WD/WN, no acute distress, other - obese female HEENT: normocephalic, atraumatic, anicteric, mucous membranes moist Respiratory/Chest: chest wall non-tender, lungs clear, normal breath sounds, no respiratory distress Cardiovascular: normal peripheral pulses, normal rate, regular rhythm Abdomen: normal bowel sounds, soft, non tender, no organomegaly, non distended , no mass Extremities: no cyanosis, no clubbing, no edema Microbiology Date/Time Source Procedure Growth Status 10/01/18 17:34 Sputum Gram Stain - Final Complete 10/01/18 17:34 Sputum Sputum Culture - Final NORMAL UPPER RESPIRATORY FREDO PRESENT Complete Laboratory Tests 10/03/18 21:48: Vancomycin Level Trough 14.6H Current Medications Medications (Trade) Dose Ordered Sig/John Route PRN Reason Start Time Stop Time Status Last Admin Dose Admin Acetaminophen (Tylenol) 650 mg Q4H PRN ORAL Mild Pain/Temp > 100.5 10/01/18 03:00 10/31/18 02:59 Acetaminophen/ Hydrocodone Bitart ([place] 10/325) 1 tab Q4H PRN ORAL For moderate-severe Pain >5/10 10/01/18 03:00 10/08/18 02:59 10/04/18 10:09 Albuterol/ Ipratropium (Albuterol/ Ipratropium) 3 ml Q4H PRN HHN Shortness of Breath 10/01/18 14:30 10/06/18 14:29 Albuterol/ Ipratropium (Albuterol/ Ipratropium) 3 ml Q6HRT HHN 10/01/18 19:00 10/06/18 18:59 10/04/18 01:24 Atorvastatin Calcium (Lipitor) 20 mg BEDTIME ORAL 10/01/18 21:00 10/31/18 20:59 10/03/18 21:03 Benazepril HCl (Lotensin) 10 mg DAILY ORAL 10/02/18 09:00 11/01/18 08:59 10/04/18 09:40 Ceftriaxone Sodium 2 gm/ Dextrose 55 ml @ 110 mls/hr Q24H IVPB 10/01/18 12:00 10/08/18 11:59 10/03/18 12:34 Dextrose (Dextrose 50%) 25 ml Q30M PRN IV Hypoglycemia 10/01/18 08:15 10/31/18 08:14 Dextrose (Dextrose 50%) 50 ml Q30M PRN IV Hypoglycemia 10/01/18 08:15 10/31/18 08:14 Doxycycline Monohydrate (Doxycycline Monohydrate) 100 mg EVERY 12 HOURS ORAL 10/01/18 21:00 10/08/18 09:01 10/04/18 09:39 Heparin Sodium (Porcine) (Heparin 5000 units/ml) 5,000 units EVERY 12 HOURS SUBQ 10/01/18 09:00 10/31/18 08:59 10/04/18 09:54 Hydrochlorothiazide (Hydrodiuril) 12.5 mg DAILY ORAL 10/02/18 09:00 11/01/18 08:59 10/04/18 09:53 Insulin Aspart (NovoLOG) BEFORE MEALS AND HS SUBQ 10/01/18 11:30 10/31/18 11:29 10/04/18 06:51 Insulin Aspart (NovoLOG) 10 units BEFORE MEALS SUBQ 10/04/18 11:30 11/02/18 06:29 Insulin Detemir (Levemir) 30 units BEDTIME SUBQ 10/03/18 21:00 11/01/18 21:59 10/03/18 21:07 Ketotifen Fumarate (Zatidor) 1 drop BID BOTH EYES 10/01/18 18:00 10/31/18 17:59 10/04/18 09:58 Metformin HCl (Glucophage) 1,000 mg BIDBL ORAL 10/02/18 06:30 11/01/18 06:29 10/04/18 06:45 Pantoprazole (Protonix) 40 mg DAILY ORAL 10/01/18 09:00 10/31/18 08:59 10/04/18 09:40 Pioglitazone HCl (Actos) 30 mg ACBREAKFAST ORAL 10/02/18 06:30 11/01/18 06:29 10/04/18 06:50 Prednisone (predniSONE) 40 mg DAILY ORAL 10/04/18 09:00 11/03/18 08:59 10/04/18 09:39 Promethazine HCl/ Codeine (Phenergan with Codeine) 10 ml TID PRN ORAL For Cough 10/01/18 03:00 10/31/18 02:59 10/04/18 10:08 Salmeterol Xinafoate/ Fluticasone (Advair 250/50 Diskus) 1 puffs BID INH 10/01/18 18:00 10/31/18 17:59 10/04/18 11:26 Sitagliptin Phosphate (Januvia) 100 mg ACBREAKFAST ORAL 10/04/18 08:00 11/03/18 07:59 10/04/18 09:57 Vancomycin HCl (Vanco rx to dose) 1 ea DAILY PRN MISC Per rx protocol 10/02/18 09:45 11/01/18 09:44 Vancomycin HCl/ Dextrose 275 ml @ 184 mls/hr Q12HR@1100,2300 IVPB 10/03/18 23:00 10/08/18 22:59 10/04/18 11:31 Oscar Pena MD Oct 04, 2018 12:06
[2018-10-04] MEDS: cefTRIAXone 2 GM in D5W 55 ML IVPB SCH (12:39)
--- NOTE | 2018-10-04 13:29 | Infectious Diseases Prog Note ---
Assessment/Plan Problems: (1) Bacteremia due to Gram-positive bacteria Assessment & Plan: with culture grew staph epidermidis out of four bottles , most likely real , source could be skin cracks in her feet . continue vancomycin for two weeks minimum pending repeated blood culture x2 to confirm clearance . transthoracic echo showed no vegetations . will repeat blood culture today to confirm clearance (2) COPD (chronic obstructive pulmonary disease) Assessment & Plan: with exacerbations due to the above, continue inhalers, antibiotics and taper steroids (3) Edema of both legs Assessment & Plan: possible heart failure related, continue diuresis as per cardiology (4) Diabetes mellitus Assessment & Plan: recommend tight glycemic control to keep blood glucose between 100-140 Subjective Constitutional: Reports: no symptoms HEENT: Reports: no symptoms Respiratory: Reports: no symptoms Breasts: Reports: no symptoms Cardiovascular: Reports: no symptoms Gastrointestinal/Abdominal: Reports: no symptoms Genitourinary: Reports: no symptoms Neurologic: Reports: no symptoms Psychiatric: Reports: no symptoms Skin: Reports: no symptoms Endocrine: Reports: no symptoms Hematologic: Reports: no symptoms Musculoskeletal: Reports: no symptoms Allergies: Coded Allergies: ERYTHROMYCIN BASE (Verified Allergy, Severe, Shortness of Breath, 10/01/18) Per pt, states that she got "short of breath and spread out in hives" Objective Vital Signs Last 24 Hour Vital Signs Date Time Temp Pulse Resp B/P (MAP) Pulse Ox O2 Delivery O2 Flow Rate FiO2 10/04/18 09:40 120/84 10/04/18 09:00 78 20 97 Room Air 21 10/04/18 09:00 78 20 97 Room Air 21 10/04/18 08:00 98.4 107 18 120/84 (96) 99 10/04/18 07:11 97 Room Air 21 10/04/18 07:11 Room Air 21 10/04/18 07:11 Room Air 21 10/04/18 05:37 82 14 97 Facial 30 10/04/18 04:00 97.6 86 18 111/58 (75) 97 10/04/18 03:59 82 10/04/18 03:29 86 16 97 Facial 30 10/04/18 01:42 94 15 98 Facial 30 10/04/18 01:36 94 18 98 Bi-pap 30 10/04/18 01:24 96 18 94 Room Air 21 10/04/18 00:00 98.3 94 18 109/73 (85) 95 10/03/18 23:29 109 10/03/18 21:00 Nasal Cannula 3.0 10/03/18 20:00 98.0 96 18 124/79 (94) 100 10/03/18 19:59 95 18 98 Nasal Cannula 2.0 28 10/03/18 19:50 95 10/03/18 19:49 95 18 95 Room Air 21 10/03/18 19:48 94 Room Air 21 10/03/18 19:48 95 18 95 Room Air 21 10/03/18 19:48 95 18 95 Room Air 21 10/03/18 16:00 97.7 95 18 104/63 (77) 96 10/03/18 16:00 93 Height (Feet): 5 Height (Inches): 3.00 Weight (Pounds): 297 General Appearance: WD/WN, no acute distress HEENT: normocephalic, atraumatic, anicteric, mucous membranes moist, PERRL Respiratory/Chest: chest wall non-tender, lungs clear, normal breath sounds, no respiratory distress, no accessory muscle use Cardiovascular: normal peripheral pulses, normal rate, regular rhythm, no gallop/murmur, no JVD Abdomen: normal bowel sounds, soft, non tender, no organomegaly, non distended , no mass, no scars Genitourinary: normal external genitalia Extremities: no cyanosis, no clubbing Skin: no rash, no lesions, no ulcers, rash, ulcers Neurologic/Psychiatric: manager 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 II-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 grossly normal, alert, oriented x 3, responsive Lymphatic: no neck adenopathy, no groin adenopathy Musculoskeletal: normal muscle bulk, no effusion Microbiology Date/Time Source Procedure Growth Status 10/01/18 17:34 Sputum Gram Stain - Final Complete 10/01/18 17:34 Sputum Sputum Culture - Final NORMAL UPPER RESPIRATORY FREDO PRESENT Complete Laboratory Tests Test 10/03/18 21:48 Vancomycin Level Trough 14.6 ug/mL (5.0-12.0) H Current Medications Medications (Trade) Dose Ordered Sig/John Route PRN Reason Start Time Stop Time Status Last Admin Dose Admin Acetaminophen (Tylenol) 650 mg Q4H PRN ORAL Mild Pain/Temp > 100.5 10/01/18 03:00 10/31/18 02:59 Acetaminophen/ Hydrocodone Bitart ([place] 10/325) 1 tab Q4H PRN ORAL For moderate-severe Pain >5/10 10/01/18 03:00 10/08/18 02:59 10/04/18 10:09 Albuterol/ Ipratropium (Albuterol/ Ipratropium) 3 ml Q4H PRN HHN Shortness of Breath 10/01/18 14:30 10/06/18 14:29 Albuterol/ Ipratropium (Albuterol/ Ipratropium) 3 ml Q6HRT HHN 10/01/18 19:00 10/06/18 18:59 10/04/18 01:24 Atorvastatin Calcium (Lipitor) 20 mg BEDTIME ORAL 10/01/18 21:00 10/31/18 20:59 10/03/18 21:03 Benazepril HCl (Lotensin) 10 mg DAILY ORAL 10/02/18 09:00 11/01/18 08:59 10/04/18 09:40 Ceftriaxone Sodium 2 gm/ Dextrose 55 ml @ 110 mls/hr Q24H IVPB 10/01/18 12:00 10/08/18 11:59 10/04/18 12:39 Dextrose (Dextrose 50%) 25 ml Q30M PRN IV Hypoglycemia 10/01/18 08:15 10/31/18 08:14 Dextrose (Dextrose 50%) 50 ml Q30M PRN IV Hypoglycemia 10/01/18 08:15 10/31/18 08:14 Doxycycline Monohydrate (Doxycycline Monohydrate) 100 mg EVERY 12 HOURS ORAL 10/01/18 21:00 10/08/18 09:01 10/04/18 09:39 Heparin Sodium (Porcine) (Heparin 5000 units/ml) 5,000 units EVERY 12 HOURS SUBQ 10/01/18 09:00 10/31/18 08:59 10/04/18 09:54 Hydrochlorothiazide (Hydrodiuril) 12.5 mg DAILY ORAL 10/02/18 09:00 11/01/18 08:59 10/04/18 09:53 Insulin Aspart (NovoLOG) BEFORE MEALS AND HS SUBQ 10/01/18 11:30 10/31/18 11:29 10/04/18 12:41 Insulin Aspart (NovoLOG) 10 units BEFORE MEALS SUBQ 10/04/18 11:30 11/02/18 06:29 10/04/18 12:41 Insulin Detemir (Levemir) 30 units BEDTIME SUBQ 10/03/18 21:00 11/01/18 21:59 10/03/18 21:07 Ketotifen Fumarate (Zatidor) 1 drop BID BOTH EYES 10/01/18 18:00 10/31/18 17:59 10/04/18 09:58 Metformin HCl (Glucophage) 1,000 mg BIDBL ORAL 10/02/18 06:30 11/01/18 06:29 10/04/18 12:39 Pantoprazole (Protonix) 40 mg DAILY ORAL 10/01/18 09:00 10/31/18 08:59 10/04/18 09:40 Pioglitazone HCl (Actos) 30 mg ACBREAKFAST ORAL 10/02/18 06:30 11/01/18 06:29 10/04/18 06:50 Prednisone (predniSONE) 40 mg DAILY ORAL 10/04/18 09:00 11/03/18 08:59 10/04/18 09:39 Promethazine HCl/ Codeine (Phenergan with Codeine) 10 ml TID PRN ORAL For Cough 10/01/18 03:00 10/31/18 02:59 10/04/18 10:08 Salmeterol Xinafoate/ Fluticasone (Advair 250/50 Diskus) 1 puffs BID INH 10/01/18 18:00 10/31/18 17:59 10/04/18 11:26 Sitagliptin Phosphate (Januvia) 100 mg ACBREAKFAST ORAL 10/04/18 08:00 11/03/18 07:59 10/04/18 09:57 Vancomycin HCl (Vanco rx to dose) 1 ea DAILY PRN MISC Per rx protocol 10/02/18 09:45 11/01/18 09:44 Vancomycin HCl/ Dextrose 275 ml @ 184 mls/hr Q12HR@1100,2300 IVPB 10/03/18 23:00 10/08/18 22:59 10/04/18 11:31 Dedrick Goldman M.D. Oct 04, 2018 13:29
[2018-10-04 16:00] VITALS: BP 111/66
--- NOTE | 2018-10-04 19:20 | NUR ---
HAND-OFF: Report given to Jose Juan BALLARD. Pt remains stable.
--- NOTE | 2018-10-04 19:30 | NUR ---
NURSE NOTES: Received patient from Min RN, patient awake and oriented x4. In bed, no s/s of respiratory distress. Bed locked, in low position, call light within reach. Patient c/o severe anxiety and depression. Notified Dr. Yee and requested orders for prn anxiety medications.
[2018-10-04 20:00] VITALS: BP 125/75
[2018-10-04] MEDS: Atorvastatin 20mg tab ORAL SCH (21:07)
[2018-10-04] MEDS: Levemir Flexpen SUBQ SCH (21:10)
[2018-10-04] MEDS: LORazepam Inj 2mg/ml 1ml IV PRN (21:11)
--- NOTE | 2018-10-04 23:00 | Cardiology Progress Note ---
Assessment/Plan Assessment/Plan 1. Dyspnea, possible etiologies include acute exacerbation of chronic obstructive pulmonary disease vs PRISCILLA. 2. Lower extremity edema could be venous insufficiency, use of prednisone with associated water or sodium retention. 3. Staph Epidermidis bacteremia not a common organism for [place] valves, blood Cx pending, continue ABx therapy. 4. History of diabetes mellitus. 5. History of fibromyalgia. 6. History of cerebrovascular accident with left hemiparesis. Subjective Subjective Sinus rhythm at rate of 94. Objective Last 24 Hour Vital Signs Date Time Temp Pulse Resp B/P (MAP) Pulse Ox O2 Delivery O2 Flow Rate FiO2 10/04/18 20:28 103 20 98 Room Air 21 10/04/18 20:18 94 20 97 Room Air 10/04/18 20:17 94 20 97 Room Air 10/04/18 20:17 97 Room Air 10/04/18 20:17 94 20 97 Room Air 10/04/18 16:00 94 10/04/18 16:00 97.5 100 18 111/66 (81) 98 10/04/18 13:20 92 20 100 Room Air 10/04/18 13:10 92 20 96 Room Air 10/04/18 12:00 93 10/04/18 12:00 98.1 94 18 114/76 (89) 99 10/04/18 09:40 120/84 10/04/18 09:00 78 20 97 Room Air 10/04/18 09:00 78 20 97 Room Air 10/04/18 09:00 Nasal Cannula 3.0 10/04/18 08:00 98.4 107 18 120/84 (96) 99 10/04/18 08:00 106 10/04/18 07:11 97 Room Air 21 10/04/18 07:11 Room Air 21 10/04/18 07:11 Room Air 10/04/18 05:37 82 14 97 Facial 30 10/04/18 04:00 97.6 86 18 111/58 (75) 97 10/04/18 03:59 82 10/04/18 03:29 86 16 97 Facial 30 10/04/18 01:42 94 15 98 Facial 30 10/04/18 01:36 94 18 98 Bi-pap 30 10/04/18 01:24 96 18 94 Room Air 10/04/18 00:00 98.3 94 18 109/73 (85) 95 10/03/18 23:29 109 Intake and Output 10/03/18 10/04/18 19:00 07:00 Intake Total 1197.416 ml 275 ml Balance 1197.416 ml 275 ml Intake Oral 720 ml IV Total 477.416 ml 275 ml # Voids 3 2 2D Echo: LVEF 55%, Mild LAE, RVSP 41 mmHg, Grade I LVDD Objective HEENT: Atraumatic and normocephalic. Anicteric. Pupils are equal, round, and reactive to light and accommodation. Extraocular muscles intact. NECK: Cannot assess JVP due to short neck and obesity. No carotid bruit. CARDIOVASCULAR: Normal S1, S2. Regular rate and rhythm. No murmurs, gallops, or rubs. PMI is at fourth intercostal space in the midclavicular line. LUNGS: Diminished breath sounds with bilateral rhonchi, diffuse in both lungs. ABDOMEN: Obese. No hepatosplenomegaly. Soft. Positive bowel sounds. EXTREMITIES: There is 1 to 2+ bilateral lower extremity edema. No clubbing or cyanosis. Anand Nelson MD Oct 04, 2018 23:00
[2018-10-05] VITALS: BP 120/84
[2018-10-05] MEDS: Albuterol/Ipratropium 3ml neb HHN SCH ×4 (01:07→19:53)
[2018-10-05] MEDS: HYDROcodone/Acetamin 10/325 tab ORAL PRN (01:10)
[2018-10-05 04:00] VITALS: BP 108/67
--- NOTE | 2018-10-05 06:17 | General Progress Note ---
Assessment/Plan Problem List: (1) Diabetes mellitus ICD Codes: E11.9 - Type 2 diabetes mellitus without complications SNOMED: 48534097 (2) COPD (chronic obstructive pulmonary disease) ICD Codes: J44.9 - Chronic obstructive pulmonary disease, unspecified SNOMED: 69735866 (3) Asthma attack ICD Codes: J45.901 - Unspecified asthma with (acute) exacerbation SNOMED: 874418840 (4) Hyperglycemia ICD Codes: R73.9 - Hyperglycemia, unspecified SNOMED: 57391090 Assessment/Plan: on Prednisone 40 mg daily - continue Levemir 30 units qhs - continue Novolog 10 units ac tid - continue Metformin 1000 mg bid - continue Januvia 100 mg daily - continue Actos 30 mg daily - continue NISS ac / hs Subjective Allergies: Coded Allergies: ERYTHROMYCIN BASE (Verified Allergy, Severe, Shortness of Breath, 10/01/18) Per pt, states that she got "short of breath and spread out in hives" All Systems: reviewed and negative except above Subjective events noted Item Value Date Time Bedside Blood Glucose 228 mg/dl H 10/04/18 2123 Bedside Blood Glucose 298 mg/dl H 10/04/18 1749 Bedside Blood Glucose 188 mg/dl H 10/04/18 1241 Bedside Blood Glucose 143 mg/dl H 10/04/18 0651 Objective Last 24 Hour Vital Signs Date Time Temp Pulse Resp B/P (MAP) Pulse Ox O2 Delivery O2 Flow Rate FiO2 10/05/18 04:45 76 16 99 Facial 30 10/05/18 04:00 98.1 97 20 108/67 (81) 97 10/05/18 03:51 89 10/05/18 03:29 88 16 98 Facial 30 10/05/18 01:35 96 20 97 Facial 30 10/05/18 01:23 97 20 98 Room Air 21 10/05/18 01:08 98 18 95 Room Air 21 10/05/18 00:00 98.2 103 20 120/84 (96) 94 10/04/18 23:43 94 10/04/18 21:00 Nasal Cannula 3.0 10/04/18 20:28 103 20 98 Room Air 21 10/04/18 20:18 94 20 97 Room Air 21 10/04/18 20:17 94 20 97 Room Air 21 10/04/18 20:17 97 Room Air 21 10/04/18 20:17 94 20 97 Room Air 21 10/04/18 20:00 95 20 125/75 (92) 99 10/04/18 19:01 98 10/04/18 16:00 94 10/04/18 16:00 97.5 100 18 111/66 (81) 98 10/04/18 13:20 92 20 100 Room Air 21 10/04/18 13:10 92 20 96 Room Air 21 10/04/18 12:00 93 10/04/18 12:00 98.1 94 18 114/76 (89) 99 10/04/18 09:40 120/84 10/04/18 09:00 78 20 97 Room Air 21 10/04/18 09:00 78 20 97 Room Air 21 10/04/18 09:00 Nasal Cannula 3.0 10/04/18 08:00 98.4 107 18 120/84 (96) 99 10/04/18 08:00 106 10/04/18 07:11 97 Room Air 21 10/04/18 07:11 Room Air 21 10/04/18 07:11 Room Air 21 Intake and Output 10/04/18 10/05/18 19:00 07:00 Intake Total 820 ml 275 ml Balance 820 ml 275 ml Intake Oral 820 ml IV Total 275 ml # Voids 5 2 Height (Feet): 5 Height (Inches): 3.00 Weight (Pounds): 297 General Appearance: no apparent distress Neck: normal alignment Cardiovascular: normal rate Respiratory/Chest: expiratory wheezing Pelvis: normal external exam Objective Current Medications Medications (Trade) Dose Ordered Sig/John Route PRN Reason Start Time Stop Time Status Last Admin Dose Admin Acetaminophen (Tylenol) 650 mg Q4H PRN ORAL Mild Pain/Temp > 100.5 10/01/18 03:00 10/31/18 02:59 Acetaminophen/ Hydrocodone Bitart ([place] 10/325) 1 tab Q4H PRN ORAL For moderate-severe Pain >5/10 10/01/18 03:00 10/08/18 02:59 10/05/18 01:10 Albuterol/ Ipratropium (Albuterol/ Ipratropium) 3 ml Q4H PRN HHN Shortness of Breath 10/01/18 14:30 10/06/18 14:29 Albuterol/ Ipratropium (Albuterol/ Ipratropium) 3 ml Q6HRT HHN 10/01/18 19:00 10/06/18 18:59 10/05/18 01:07 Atorvastatin Calcium (Lipitor) 20 mg BEDTIME ORAL 10/01/18 21:00 10/31/18 20:59 10/04/18 21:07 Benazepril HCl (Lotensin) 10 mg DAILY ORAL 10/02/18 09:00 11/01/18 08:59 10/04/18 09:40 Ceftriaxone Sodium 2 gm/ Dextrose 55 ml @ 110 mls/hr Q24H IVPB 10/01/18 12:00 10/08/18 11:59 10/04/18 12:39 Dextrose (Dextrose 50%) 25 ml Q30M PRN IV Hypoglycemia 10/01/18 08:15 10/31/18 08:14 Dextrose (Dextrose 50%) 50 ml Q30M PRN IV Hypoglycemia 10/01/18 08:15 10/31/18 08:14 Doxycycline Monohydrate (Doxycycline Monohydrate) 100 mg EVERY 12 HOURS ORAL 10/01/18 21:00 10/08/18 09:01 10/04/18 21:07 Heparin Sodium (Porcine) (Heparin 5000 units/ml) 5,000 units EVERY 12 HOURS SUBQ 10/01/18 09:00 10/31/18 08:59 10/04/18 21:09 Hydrochlorothiazide (Hydrodiuril) 12.5 mg DAILY ORAL 10/02/18 09:00 11/01/18 08:59 10/04/18 09:53 Insulin Aspart (NovoLOG) BEFORE MEALS AND HS SUBQ 10/01/18 11:30 10/31/18 11:29 10/04/18 21:23 Insulin Aspart (NovoLOG) 10 units BEFORE MEALS SUBQ 10/04/18 11:30 11/02/18 06:29 10/04/18 17:47 Insulin Detemir (Levemir) 30 units BEDTIME SUBQ 10/03/18 21:00 11/01/18 21:59 10/04/18 21:10 Ketotifen Fumarate (Zatidor) 1 drop BID BOTH EYES 10/01/18 18:00 10/31/18 17:59 10/04/18 17:53 Lorazepam (Ativan 2mg/ml 1ml) 1 mg Q8H PRN IV For Anxiety 10/04/18 20:45 10/11/18 20:44 10/04/18 21:11 Metformin HCl (Glucophage) 1,000 mg BIDBL ORAL 10/02/18 06:30 11/01/18 06:29 10/04/18 12:39 Pantoprazole (Protonix) 40 mg DAILY ORAL 10/01/18 09:00 10/31/18 08:59 10/04/18 09:40 Pioglitazone HCl (Actos) 30 mg ACBREAKFAST ORAL 10/02/18 06:30 11/01/18 06:29 10/04/18 06:50 Prednisone (predniSONE) 40 mg DAILY ORAL 10/04/18 09:00 11/03/18 08:59 10/04/18 09:39 Promethazine HCl/ Codeine (Phenergan with Codeine) 10 ml TID PRN ORAL For Cough 10/01/18 03:00 10/31/18 02:59 10/04/18 10:08 Salmeterol Xinafoate/ Fluticasone (Advair 250/50 Diskus) 1 puffs BID INH 10/01/18 18:00 10/31/18 17:59 10/04/18 20:17 Sitagliptin Phosphate (Januvia) 100 mg ACBREAKFAST ORAL 10/04/18 08:00 11/03/18 07:59 10/04/18 09:57 Vancomycin HCl (Vanco rx to dose) 1 ea DAILY PRN MISC Per rx protocol 10/02/18 09:45 11/01/18 09:44 Vancomycin HCl/ Dextrose 275 ml @ 184 mls/hr Q12HR@1100,2300 IVPB 10/03/18 23:00 10/08/18 22:59 10/04/18 23:29 Stuart Layton MD Oct 05, 2018 06:17
[2018-10-05] MEDS: metFORMIN 500mg tab ORAL SCH ×2 (06:28→12:11)
[2018-10-05] MEDS: NovoLOG Insulin Flexpen SUBQ SCH ×7 (06:47→21:41)
--- NOTE | 2018-10-05 07:15 | NUR ---
NURSE NOTES: Received report from Jose Juan BALLARD. A/OX4. Denied SOB. No c/o pain. No sings of distress noted. Bed in lowest position and pt sitting in bed. IV in left hand with 22G SL patent and asymptomatic. Side rails x2 up. Bed in lowest position and locked. Pt able to stand up with minimal assist and ambulating steady. Will continue to monitor with current plan of care.
--- NOTE | 2018-10-05 07:30 | NUR ---
HAND-OFF: Report given to Min RN. Patient in stable condition. Plan of care endorsed.
[2018-10-05 08:00] VITALS: BP 101/64
[2018-10-05] MEDS: Benazepril 10mg tab ORAL SCH (08:30)
[2018-10-05] MEDS: hydroCHLOROthiazide 12.5mg TAB ORAL SCH (08:31)
[2018-10-05] MEDS: Ketotifen Fumarate 0.035% 5ml BOTH EYES SCH ×2 (08:32→17:48)
[2018-10-05] MEDS: Heparin 5000 units/ml inj SUBQ SCH ×2 (08:35→21:23)
[2018-10-05] MEDS: Wixela 250/50 Inhaler - 60 dose INH SCH ×2 (11:15→19:53)
[2018-10-05] MEDS: Vancomycin 1.25gm Premix 275 ML IVPB SCH ×2 (11:19→23:09)
--- NOTE | 2018-10-05 11:21 | NUR ---
*-* INSURANCE *-* UPDATED CLINICALS HAVE BEEN FAXED: RENEE F:[phone]
[2018-10-05 12:00] VITALS: BP 104/51
[2018-10-05] MEDS: cefTRIAXone 2 GM in D5W 55 ML IVPB SCH (12:14)
--- NOTE | 2018-10-05 12:43 | Pulmonology Progress Note ---
Assessment/Plan Assessment/Plan ASSESSMENT: The patient is a 58-year-old female, nonsmoker with a history of asthma, presenting with an acute exacerbation of her asthma in the setting of a respiratory infection, upper respiratory infection/ tracheobronchitis versus early pneumonia. PROBLEM LIST: 1. Asthma with acute exacerbation. 2. Upper respiratory infection/tracheobronchitis versus early pneumonia. 3. S epidermidis bacteremia 4. PRISCILLA, on CPAP. 5. Morbid obesity. 6. Likely obesity hypoventilation. 7. Diabetes, hypertension, hyperlipidemia, and prior CVA. 8. Mild pulmonary HTN TREATMENT PLAN: 1. Optimize pulmonary hygiene/mobilize as tolerated. 2. PRN O2 3. Continue Advair (auto sub for Symbicort). 4. [id number] and p.r.n. bronchodilators. 5. Decrease Pred to 30 and taper. 6. Abx per ID, F/U Cx's. 7. D/W ID, if repeat Cx's + will need a LUCA 8. Monitor volumes and renal function. 9. DVT prophylaxis, heparin subcutaneous. 10. CT chest reviewed 11. CPAP 10 cm of water nightly . 12. Weight loss, diet and exercise was discussed again today Subjective Allergies: Coded Allergies: ERYTHROMYCIN BASE (Verified Allergy, Severe, Shortness of Breath, 10/01/18) Per pt, states that she got "short of breath and spread out in hives" Subjective AFVSS on RA Better overall less cough less wheezing denies SOB Repeat Cx's not showing up Objective Last 24 Hour Vital Signs Date Time Temp Pulse Resp B/P (MAP) Pulse Ox O2 Delivery O2 Flow Rate FiO2 10/05/18 11:19 86 18 96 Room Air 21 10/05/18 11:18 85 20 96 Room Air 21 10/05/18 09:00 Nasal Cannula 3.0 10/05/18 08:30 101/64 10/05/18 08:12 93 18 98 Room Air 21 10/05/18 08:03 96 Room Air 21 10/05/18 08:03 90 18 96 Room Air 21 10/05/18 08:00 98.1 94 20 101/64 (76) 97 10/05/18 08:00 97 10/05/18 04:45 76 16 99 Facial 30 10/05/18 04:00 98.1 97 20 108/67 (81) 97 10/05/18 03:51 89 10/05/18 03:29 88 16 98 Facial 30 10/05/18 01:35 96 20 97 Facial 30 10/05/18 01:23 97 20 98 Room Air 21 10/05/18 01:08 98 18 95 Room Air 21 10/05/18 00:00 98.2 103 20 120/84 (96) 94 10/04/18 23:43 94 10/04/18 21:00 Nasal Cannula 3.0 10/04/18 20:28 103 20 98 Room Air 21 10/04/18 20:18 94 20 97 Room Air 21 10/04/18 20:17 94 20 97 Room Air 21 10/04/18 20:17 97 Room Air 21 10/04/18 20:17 94 20 97 Room Air 21 10/04/18 20:00 95 20 125/75 (92) 99 10/04/18 19:01 98 10/04/18 16:00 94 10/04/18 16:00 97.5 100 18 111/66 (81) 98 10/04/18 13:20 92 20 100 Room Air 21 10/04/18 13:10 92 20 96 Room Air 21 Intake and Output 10/04/18 10/05/18 19:00 07:00 Intake Total 820 ml 275 ml Balance 820 ml 275 ml Intake Oral 820 ml IV Total 275 ml # Voids 5 2 General Appearance: WD/WN, no acute distress, other - obese female HEENT: normocephalic, atraumatic, anicteric, mucous membranes moist Respiratory/Chest: chest wall non-tender, lungs clear, normal breath sounds, no respiratory distress, no accessory muscle use Cardiovascular: normal peripheral pulses, normal rate, regular rhythm Abdomen: normal bowel sounds, soft, non tender, no organomegaly, non distended , no mass Extremities: no cyanosis, no clubbing, no edema Current Medications Medications (Trade) Dose Ordered Sig/John Route PRN Reason Start Time Stop Time Status Last Admin Dose Admin Acetaminophen (Tylenol) 650 mg Q4H PRN ORAL Mild Pain/Temp > 100.5 10/01/18 03:00 10/31/18 02:59 Acetaminophen/ Hydrocodone Bitart ([place] 10/325) 1 tab Q4H PRN ORAL For moderate-severe Pain >5/10 10/01/18 03:00 10/08/18 02:59 10/05/18 01:10 Albuterol/ Ipratropium (Albuterol/ Ipratropium) 3 ml Q4H PRN HHN Shortness of Breath 10/01/18 14:30 10/06/18 14:29 Albuterol/ Ipratropium (Albuterol/ Ipratropium) 3 ml Q6HRT HHN 10/01/18 19:00 10/06/18 18:59 10/05/18 08:03 Atorvastatin Calcium (Lipitor) 20 mg BEDTIME ORAL 10/01/18 21:00 10/31/18 20:59 10/04/18 21:07 Benazepril HCl (Lotensin) 10 mg DAILY ORAL 10/02/18 09:00 11/01/18 08:59 10/04/18 09:40 Ceftriaxone Sodium 2 gm/ Dextrose 55 ml @ 110 mls/hr Q24H IVPB 10/01/18 12:00 10/08/18 11:59 10/05/18 12:14 Dextrose (Dextrose 50%) 25 ml Q30M PRN IV Hypoglycemia 10/01/18 08:15 10/31/18 08:14 Dextrose (Dextrose 50%) 50 ml Q30M PRN IV Hypoglycemia 10/01/18 08:15 10/31/18 08:14 Doxycycline Monohydrate (Doxycycline Monohydrate) 100 mg EVERY 12 HOURS ORAL 10/01/18 21:00 10/08/18 09:01 10/05/18 08:29 Heparin Sodium (Porcine) (Heparin 5000 units/ml) 5,000 units EVERY 12 HOURS SUBQ 10/01/18 09:00 10/31/18 08:59 10/05/18 08:35 Hydrochlorothiazide (Hydrodiuril) 12.5 mg DAILY ORAL 10/02/18 09:00 11/01/18 08:59 10/04/18 09:53 Insulin Aspart (NovoLOG) BEFORE MEALS AND HS SUBQ 10/01/18 11:30 10/31/18 11:29 10/05/18 12:12 Insulin Aspart (NovoLOG) 10 units BEFORE MEALS SUBQ 10/04/18 11:30 11/02/18 06:29 10/05/18 12:12 Insulin Detemir (Levemir) 30 units BEDTIME SUBQ 10/03/18 21:00 11/01/18 21:59 10/04/18 21:10 Ketotifen Fumarate (Zatidor) 1 drop BID BOTH EYES 10/01/18 18:00 10/31/18 17:59 10/04/18 17:53 Lorazepam (Ativan 2mg/ml 1ml) 1 mg Q8H PRN IV For Anxiety 10/04/18 20:45 10/11/18 20:44 10/04/18 21:11 Metformin HCl (Glucophage) 1,000 mg BIDBL ORAL 10/02/18 06:30 11/01/18 06:29 10/05/18 12:11 Pantoprazole (Protonix) 40 mg DAILY ORAL 10/01/18 09:00 10/31/18 08:59 10/05/18 08:29 Pioglitazone HCl (Actos) 30 mg ACBREAKFAST ORAL 10/02/18 06:30 11/01/18 06:29 10/05/18 06:28 Prednisone (predniSONE) 40 mg DAILY ORAL 10/04/18 09:00 11/03/18 08:59 10/05/18 08:29 Promethazine HCl/ Codeine (Phenergan with Codeine) 10 ml TID PRN ORAL For Cough 10/01/18 03:00 10/31/18 02:59 10/04/18 10:08 Salmeterol Xinafoate/ Fluticasone (Advair 250/50 Diskus) 1 puffs BID INH 10/01/18 18:00 10/31/18 17:59 10/05/18 11:15 Sitagliptin Phosphate (Januvia) 100 mg ACBREAKFAST ORAL 10/04/18 08:00 11/03/18 07:59 10/05/18 06:28 Vancomycin HCl (Vanco rx to dose) 1 ea DAILY PRN MISC Per rx protocol 10/02/18 09:45 11/01/18 09:44 Vancomycin HCl/ Dextrose 275 ml @ 184 mls/hr Q12HR@1100,2300 IVPB 10/03/18 23:00 10/08/18 22:59 10/05/18 11:19 Oscar Pena MD Oct 05, 2018 12:43
[2018-10-05] MEDS: LORazepam Inj 2mg/ml 1ml IV PRN ×2 (13:53→21:35)
--- NOTE | 2018-10-05 14:34 | Cardiology Report ---
APPROVED REPORT EKG Measurement Heart [id number] Normal sinus rhythm Nonspecific ST and T wave abnormality Abnormal ECG
--- NOTE | 2018-10-05 15:57 | Infectious Diseases Prog Note ---
Assessment/Plan Problems: (1) Bacteremia due to Gram-positive bacteria Assessment & Plan: with culture grew staph epidermidis out of four bottles , most likely real , source could be skin cracks in her feet . continue vancomycin for two weeks minimum pending repeated blood culture x2 to confirm clearance . transthoracic echo showed no vegetations . will repeat blood culture today to confirm clearance (2) COPD (chronic obstructive pulmonary disease) Assessment & Plan: with exacerbations due to the above, continue inhalers, antibiotics and taper steroids (3) Edema of both legs Assessment & Plan: possible heart failure related, continue diuresis as per cardiology (4) Diabetes mellitus Assessment & Plan: recommend tight glycemic control to keep blood glucose between 100-140 Subjective Constitutional: Reports: no symptoms HEENT: Reports: no symptoms Respiratory: Reports: no symptoms Breasts: Reports: no symptoms Cardiovascular: Reports: no symptoms Gastrointestinal/Abdominal: Reports: no symptoms Genitourinary: Reports: no symptoms Neurologic: Reports: no symptoms Psychiatric: Reports: no symptoms Skin: Reports: no symptoms Endocrine: Reports: no symptoms Hematologic: Reports: no symptoms Musculoskeletal: Reports: no symptoms Allergies: Coded Allergies: ERYTHROMYCIN BASE (Verified Allergy, Severe, Shortness of Breath, 10/01/18) Per pt, states that she got "short of breath and spread out in hives" Objective Vital Signs Last 24 Hour Vital Signs Date Time Temp Pulse Resp B/P (MAP) Pulse Ox O2 Delivery O2 Flow Rate FiO2 10/05/18 13:10 90 18 98 Room Air 21 10/05/18 13:00 85 18 96 Room Air 10/05/18 12:00 97.8 101 18 104/51 (68) 94 10/05/18 12:00 99 10/05/18 11:19 86 18 96 Room Air 21 10/05/18 11:18 85 20 96 Room Air 21 10/05/18 09:00 Nasal Cannula 3.0 10/05/18 08:30 101/64 10/05/18 08:12 93 18 98 Room Air 10/05/18 08:03 96 Room Air 21 10/05/18 08:03 90 18 96 Room Air 21 10/05/18 08:00 98.1 94 20 101/64 (76) 97 10/05/18 08:00 97 10/05/18 04:45 76 16 99 Facial 30 10/05/18 04:00 98.1 97 20 108/67 (81) 97 10/05/18 03:51 89 10/05/18 03:29 88 16 98 Facial 30 10/05/18 01:35 96 20 97 Facial 30 10/05/18 01:23 97 20 98 Room Air 21 10/05/18 01:08 98 18 95 Room Air 21 10/05/18 00:00 98.2 103 20 120/84 (96) 94 10/04/18 23:43 94 10/04/18 21:00 Nasal Cannula 3.0 10/04/18 20:28 103 20 98 Room Air 21 10/04/18 20:18 94 20 97 Room Air 21 10/04/18 20:17 94 20 97 Room Air 21 10/04/18 20:17 97 Room Air 21 10/04/18 20:17 94 20 97 Room Air 21 10/04/18 20:00 95 20 125/75 (92) 99 10/04/18 19:01 98 10/04/18 16:00 94 10/04/18 16:00 97.5 100 18 111/66 (81) 98 Height (Feet): 5 Height (Inches): 3.00 Weight (Pounds): 294 General Appearance: WD/WN, no acute distress HEENT: normocephalic, atraumatic, anicteric, mucous membranes moist, PERRL Respiratory/Chest: chest wall non-tender, lungs clear, normal breath sounds, no respiratory distress, no accessory muscle use Cardiovascular: normal peripheral pulses, normal rate, regular rhythm, no gallop/murmur, no JVD Abdomen: normal bowel sounds, soft, non tender, no organomegaly, non distended , no mass, no scars Genitourinary: normal external genitalia Extremities: no cyanosis, no clubbing Skin: no rash, no lesions, no ulcers 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, no motor/sensory deficits, alert, oriented x 3, responsive Lymphatic: no neck adenopathy, no groin adenopathy Musculoskeletal: normal muscle bulk, no effusion Current Medications Medications (Trade) Dose Ordered Sig/John Route PRN Reason Start Time Stop Time Status Last Admin Dose Admin Acetaminophen (Tylenol) 650 mg Q4H PRN ORAL Mild Pain/Temp > 100.5 10/01/18 03:00 10/31/18 02:59 Acetaminophen/ Hydrocodone Bitart ([place] 10/325) 1 tab Q4H PRN ORAL For moderate-severe Pain >5/10 10/01/18 03:00 10/08/18 02:59 10/05/18 01:10 Albuterol/ Ipratropium (Albuterol/ Ipratropium) 3 ml Q4H PRN HHN Shortness of Breath 10/01/18 14:30 10/06/18 14:29 Albuterol/ Ipratropium (Albuterol/ Ipratropium) 3 ml Q6HRT HHN 10/01/18 19:00 10/06/18 18:59 10/05/18 13:00 Atorvastatin Calcium (Lipitor) 20 mg BEDTIME ORAL 10/01/18 21:00 10/31/18 20:59 10/04/18 21:07 Benazepril HCl (Lotensin) 10 mg DAILY ORAL 10/02/18 09:00 11/01/18 08:59 10/04/18 09:40 Ceftriaxone Sodium 2 gm/ Dextrose 55 ml @ 110 mls/hr Q24H IVPB 10/01/18 12:00 10/08/18 11:59 10/05/18 12:14 Dextrose (Dextrose 50%) 25 ml Q30M PRN IV Hypoglycemia 10/01/18 08:15 10/31/18 08:14 Dextrose (Dextrose 50%) 50 ml Q30M PRN IV Hypoglycemia 10/01/18 08:15 10/31/18 08:14 Doxycycline Monohydrate (Doxycycline Monohydrate) 100 mg EVERY 12 HOURS ORAL 10/01/18 21:00 10/08/18 09:01 10/05/18 08:29 Heparin Sodium (Porcine) (Heparin 5000 units/ml) 5,000 units EVERY 12 HOURS SUBQ 10/01/18 09:00 10/31/18 08:59 10/05/18 08:35 Hydrochlorothiazide (Hydrodiuril) 12.5 mg DAILY ORAL 10/02/18 09:00 11/01/18 08:59 10/04/18 09:53 Insulin Aspart (NovoLOG) BEFORE MEALS AND HS SUBQ 10/01/18 11:30 10/31/18 11:29 10/05/18 12:12 Insulin Aspart (NovoLOG) 10 units BEFORE MEALS SUBQ 10/04/18 11:30 11/02/18 06:29 10/05/18 12:12 Insulin Detemir (Levemir) 30 units BEDTIME SUBQ 10/03/18 21:00 11/01/18 21:59 10/04/18 21:10 Ketotifen Fumarate (Zatidor) 1 drop BID BOTH EYES 10/01/18 18:00 10/31/18 17:59 10/04/18 17:53 Lorazepam (Ativan 2mg/ml 1ml) 1 mg Q8H PRN IV For Anxiety 10/04/18 20:45 10/11/18 20:44 10/05/18 13:53 Metformin HCl (Glucophage) 1,000 mg BIDBL ORAL 10/02/18 06:30 11/01/18 06:29 10/05/18 12:11 Pantoprazole (Protonix) 40 mg DAILY ORAL 10/01/18 09:00 10/31/18 08:59 10/05/18 08:29 Pioglitazone HCl (Actos) 30 mg ACBREAKFAST ORAL 10/02/18 06:30 11/01/18 06:29 10/05/18 06:28 Prednisone (predniSONE) 30 mg DAILY ORAL 10/06/18 09:00 11/03/18 08:59 Promethazine HCl/ Codeine (Phenergan with Codeine) 10 ml TID PRN ORAL For Cough 10/01/18 03:00 10/31/18 02:59 10/04/18 10:08 Salmeterol Xinafoate/ Fluticasone (Advair 250/50 Diskus) 1 puffs BID INH 10/01/18 18:00 10/31/18 17:59 10/05/18 11:15 Sitagliptin Phosphate (Januvia) 100 mg ACBREAKFAST ORAL 10/04/18 08:00 11/03/18 07:59 10/05/18 06:28 Vancomycin HCl (Vanco rx to dose) 1 ea DAILY PRN MISC Per rx protocol 10/02/18 09:45 11/01/18 09:44 Vancomycin HCl/ Dextrose 275 ml @ 184 mls/hr Q12HR@1100,2300 IVPB 10/03/18 23:00 10/08/18 22:59 10/05/18 11:19 Dedrick Goldman M.D. Oct 05, 2018 15:57
[2018-10-05 16:00] VITALS: BP 95/56
--- NOTE | 2018-10-05 17:59 | NUR ---
CASE MANAGEMENT:REVIEW 10/05/18 SI: ASTHMA EXACERBATION BACTEREMIA. PULMONARY EDEMA. BILATERAL INFILTRATES 98.3 113 18 95/56 97% ON RA IS: PREDNISONE PO QD IV VANCOMYCIN Q12 IV ROCEPHIN Q24 SS INSULIN AC+HS LEVEMIR SQ QHS METFORMIN PO BID LOTENSIN PO QD HCTZ PO QD : TELEMETRY STATUS DCP: FROM HOME
--- NOTE | 2018-10-05 19:20 | NUR ---
NURSE NOTES: Report received from Min RN. Patient sitting in chair at bedside. No acute distress, no c/o pain or respiratory distress. Alert and oriented x3, calm and cooperative.
--- NOTE | 2018-10-05 19:20 | NUR ---
HAND-OFF: Report given to Jose Juan BALLARD. Pt remains stable.
[2018-10-05 20:30] VITALS: BP 113/67
[2018-10-05] MEDS: Atorvastatin 20mg tab ORAL SCH (21:18)
[2018-10-05] MEDS: Levemir Flexpen SUBQ SCH (21:45)
--- NOTE | 2018-10-05 23:04 | Cardiology Progress Note ---
Assessment/Plan Assessment/Plan 1. Dyspnea, possible etiologies include acute exacerbation of chronic obstructive pulmonary disease vs PRISCILLA. 2. Lower extremity edema could be venous insufficiency, use of prednisone with associated water or sodium retention. 3. Staph Epidermidis bacteremia not a common organism for ute valves, continue ABx therapy. 4. History of diabetes mellitus. 5. History of fibromyalgia. 6. History of cerebrovascular accident with left hemiparesis. Subjective Subjective Sinus rhythm at rate of 98. Objective Last 24 Hour Vital Signs Date Time Temp Pulse Resp B/P (MAP) Pulse Ox O2 Delivery O2 Flow Rate FiO2 10/05/18 20:00 98 20 98 Nasal Cannula 2.0 10/05/18 19:59 98 20 98 Nasal Cannula 2.0 10/05/18 19:59 98 20 98 Nasal Cannula 2.0 10/05/18 19:50 98 Nasal Cannula 2.0 10/05/18 19:45 94 20 98 Nasal Cannula 2.0 10/05/18 16:00 113 10/05/18 16:00 98.3 97 18 95/56 (69) 97 10/05/18 13:10 90 18 98 Room Air 21 10/05/18 13:00 85 18 96 Room Air 10/05/18 12:00 97.8 101 18 104/51 (68) 94 10/05/18 12:00 99 10/05/18 11:19 86 18 96 Room Air 21 10/05/18 11:18 85 20 96 Room Air 10/05/18 09:00 Nasal Cannula 3.0 10/05/18 08:30 101/64 10/05/18 08:12 93 18 98 Room Air 10/05/18 08:03 96 Room Air 21 10/05/18 08:03 90 18 96 Room Air 21 10/05/18 08:00 98.1 94 20 101/64 (76) 97 10/05/18 08:00 97 10/05/18 04:45 76 16 99 Facial 30 10/05/18 04:00 98.1 97 20 108/67 (81) 97 10/05/18 03:51 89 10/05/18 03:29 88 16 98 Facial 30 10/05/18 01:35 96 20 97 Facial 30 10/05/18 01:23 97 20 98 Room Air 21 10/05/18 01:08 98 18 95 Room Air 21 10/05/18 00:00 98.2 103 20 120/84 (96) 94 10/04/18 23:43 94 Intake and Output 10/04/18 10/05/18 18:59 06:59 Intake Total 820 ml 275 ml Balance 820 ml 275 ml Intake Oral 820 ml IV Total 275 ml # Voids 5 2 2D Echo: LVEF 55%, Mild LAE, RVSP 41 mmHg, Grade I LVDD Objective HEENT: Atraumatic and normocephalic. Anicteric. Pupils are equal, round, and reactive to light and accommodation. Extraocular muscles intact. NECK: Cannot assess JVP due to short neck and obesity. No carotid bruit. CARDIOVASCULAR: Normal S1, S2. Regular rate and rhythm. No murmurs, gallops, or rubs. PMI is at fourth intercostal space in the midclavicular line. LUNGS: Diminished breath sounds with bilateral rhonchi, diffuse in both lungs. ABDOMEN: Obese. No hepatosplenomegaly. Soft. Positive bowel sounds. EXTREMITIES: There is 1 to 2+ bilateral lower extremity edema. No clubbing or cyanosis. Anand Nelson MD Oct 05, 2018 23:04
[2018-10-06 00:30] VITALS: BP 122/73
[2018-10-06] MEDS: Albuterol/Ipratropium 3ml neb HHN SCH ×3 (01:48→13:53)
[2018-10-06 04:00] VITALS: BP 95/58
[2018-10-06] MEDS: Promethazine/Codeine 5ml UD ORAL PRN ×2 (05:11→19:58)
--- NOTE | 2018-10-06 05:24 | NUR ---
NURSE NOTES: Patient c/o cough. Administered Codeine/phenergan 10ml po prn.
[2018-10-06] MEDS: metFORMIN 500mg tab ORAL SCH ×2 (06:36→11:41)
[2018-10-06] MEDS: NovoLOG Insulin Flexpen SUBQ SCH ×7 (07:37→20:01)
--- NOTE | 2018-10-06 07:43 | NUR ---
NURSE NOTES: Received report from Jose Juan/RN. Patient is awake, eating breakfast on bed, No acute distress/SOB noted. On 2L nasal cannula. IV on Left hand, Patent, No infiltration or bleeding noted. Denies pain at this time. Bed in low position and locked, Call light within reach. Will continue plan of care.
[2018-10-06 08:00] VITALS: BP 131/82
[2018-10-06] MEDS: hydroCHLOROthiazide 12.5mg TAB ORAL SCH (08:55)
[2018-10-06] MEDS: Benazepril 10mg tab ORAL SCH (08:55)
[2018-10-06] MEDS: Ketotifen Fumarate 0.035% 5ml BOTH EYES SCH ×2 (08:56→18:00)
[2018-10-06] MEDS: Heparin 5000 units/ml inj SUBQ SCH ×2 (09:05→19:59)
--- NOTE | 2018-10-06 09:29 | NUR ---
CASE MANAGEMENT:REVIEW 10/06/18 SI: ASTHMA EXACERBATION.NEW ONSET CHF BACTEREMIA. PULMONARY EDEMA. BILATERAL INFILTRATES 98.2 87 20 131/82 97% ON 2L/NC NO LABS IS: PREDNISONE 30MG PO QD IV VANCOMYCIN Q12 IV ROCEPHIN Q24 SS INSULIN AC+HS LEVEMIR SQ QHS METFORMIN PO BID LOTENSIN PO QD HCTZ PO QD : TELEMETRY STATUS DCP: FROM HOME PLAN: TAPERING OXYGEN AND STEROIDS
[2018-10-06 10:19] LABS: HEMOGLOBIN 12.7 G/DL (12.0-16.0); MEAN CORPUSCULAR VOLUME 85 FL (80-99); PLATELET COUNT 313 K/UL (150-450); RED BLOOD COUNT 4.71 M/UL (4.20-5.40); RED CELL DISTRIBUTION WIDTH 13.9 % (11.6-14.8); WHITE BLOOD COUNT 18.3 K/UL (4.8-10.8)
[2018-10-06] MEDS: Wixela 250/50 Inhaler - 60 dose INH SCH ×2 (10:24→19:06)
[2018-10-06 10:30] LABS: ANION GAP 5 mmol/L (5-15); BLOOD UREA NITROGEN 24 mg/dL (7-18); CALCIUM 9.6 MG/DL (8.5-10.1); CARBON DIOXIDE 35 MMOL/L (21-32); CHLORIDE 103 MMOL/L (98-107); POTASSIUM 3.5 MMOL/L (3.5-5.1); SODIUM 142 MMOL/L (136-145)
--- NOTE | 2018-10-06 10:59 | NUR ---
Social Work Patient requested to speak with SW regarding her insurance. This Sw met with patient who explains her insurance was changed to Catherine Bailon [id number] (O): , Effective October 01, 2018 (contact [phone]). This Sw provided copy of the letter to admitting here to inform. Addendum: 10/06/18 at 1146 by AWILDA LAGOS Addendum: patient plans to discharge to home, requesting home care to follow. Patient requesting more diaper/briefs (insurance was authorizing with an M.D to complete the forms; patient plans to follow up with M.D outpatient to obtain new orders, due to change in insurance). Patient aware she will need to purchase own briefs until she can get to the M.D office (this hospital does not have her type of briefs that she wants).
--- NOTE | 2018-10-06 11:00 | NUR ---
NURSE NOTES: Patient was off oxygen for 20 min, and the O2 sat dropped to 84%. the patient back on oxygen 1L Nasal cannula saturating 95%.
[2018-10-06 12:00] VITALS: BP 89/58
[2018-10-06] MEDS: HYDROcodone/Acetamin 10/325 tab ORAL PRN ×2 (12:08→20:05)
[2018-10-06] MEDS: cefTRIAXone 2 GM in D5W 55 ML IVPB SCH (12:08)
[2018-10-06] MEDS: Vancomycin 1.25gm Premix 275 ML IVPB SCH ×2 (12:25→22:56)
--- NOTE | 2018-10-06 13:15 | NUR ---
DISCHARGE PLANNING DISCHARGE ORDER NOTED BOTTLE CASER DISCUSSED DC PLAN WITH DR VERA. HOME HELATH ORDER ENTERED BOTTLE CASER CALLED HOME HEALTH AND SPOKE WITH FACUNDO LOREDO THEY WILL CHECK ELIGIBILITY. IF THEY ARE ABLE TO SERVICE PATIENT THEY WILL ALSO PROVIDE OXYGEN FOR HOME [facility] T; [phone] F: [phone] CONTACTS: ANNIA T: [phone] JUVE T: [phone]
--- NOTE | 2018-10-06 13:26 | NUR ---
SS note Patient requesting a letter (for Dr. Yee to sign) stating patient cannot travel long distance (to visit son in penitentiary). Letter provided to patient, who will request M.D to sign.
--- NOTE | 2018-10-06 13:57 | NUR ---
DISCHARGE PLANNING UPDATE RECEIVED CALL FROM FACUNDO WITH "[facility]" STATING THEY CANNOT ACCEPT PATIENT D/T INSURANCE THIS ETL ANALYST LEFT MESSAGE FOR OUR ADMITTING DEPARTMENT'S DIRECTOR, ROBBY, REQUESTING ASSISTANCE WITH OBTAINING A DIRECT PHONE NUMBER FOR A ETL ANALYST. UNABLE TO ARRANGE ANY SERVICES FOR THIS PATIENT UNTIL WE SPEAK TO THE [facility]TL ANALYST Addendum: 10/06/18 at 1605 by LEANDRA SHELTON LVN LVN PATIENT'S INSURANCE IS CONTROLLED BY [facility] SPOKE WITH ETL ANALYST, QING, WHO INSTRUCTED THIS ETL ANALYST TO FAX THE REFERRAL TO THE FOLLOWING [facility] (FOR OXYGEN) T: [phone] F: [phone] FAXED TO INTAKE...WAITING FOR RESPONSE [facility] T: [phone] F: [phone] FAXED CLINICALS ...AWAIT RESPONSE
--- NOTE | 2018-10-06 15:34 | Pulmonology Progress Note ---
Assessment/Plan Assessment/Plan ASSESSMENT: The patient is a 58-year-old female, nonsmoker with a history of asthma, presenting with an acute exacerbation of her asthma in the setting of a respiratory infection, upper respiratory infection/ tracheobronchitis versus early pneumonia. PROBLEM LIST: 1. Asthma with acute exacerbation. 2. Upper respiratory infection/tracheobronchitis versus early pneumonia. 3. S epidermidis bacteremia 4. PRISCILLA, on CPAP. 5. Morbid obesity. 6. Likely obesity hypoventilation. 7. Diabetes, hypertension, hyperlipidemia, and prior CVA. 8. Mild pulmonary HTN 9. Leukocytosis, likely steroid induced TREATMENT PLAN: 1. Optimize pulmonary hygiene/mobilize as tolerated. 2. PRN O2 3. Continue Advair (auto sub for Symbicort). 4. Jbmfd-jge-bvzpm and p.r.n. bronchodilators. 5. Decrease Pred to 20 and taper. 6. Abx per ID, F/U Cx's. 7. D/W ID, if repeat Cx's + will need a LUCA 8. Monitor volumes and renal function. 9. DVT prophylaxis, heparin subcutaneous. 10. CT chest reviewed 11. CPAP 10 cm of water nightly . 12. Weight loss, diet and exercise was discussed again today Subjective Allergies: Coded Allergies: ERYTHROMYCIN BASE (Verified Allergy, Severe, Shortness of Breath, 10/01/18) Per pt, states that she got "short of breath and spread out in hives" Subjective AFVSS on RA Better stable less cough less wheezing denies SOB Repeat Cx's NG WCT 18 Objective Last 24 Hour Vital Signs Date Time Temp Pulse Resp B/P (MAP) Pulse Ox O2 Delivery O2 Flow Rate FiO2 10/06/18 13:57 98 20 98 Nasal Cannula 2.0 28 10/06/18 13:51 88 20 97 Nasal Cannula 2.0 28 10/06/18 12:00 97.2 82 20 89/58 (68) 96 10/06/18 10:24 90 20 97 Room Air 21 10/06/18 10:24 90 20 97 Room Air 21 10/06/18 09:00 Nasal Cannula 3.0 10/06/18 08:55 131/82 10/06/18 08:00 98.2 87 20 131/82 (98) 97 10/06/18 08:00 97 10/06/18 07:07 98 Nasal Cannula 2.0 28 10/06/18 07:07 90 18 96 Room Air 21 10/06/18 07:05 Nasal Cannula 10/06/18 04:31 86 20 98 Nasal Cannula 2.0 28 10/06/18 04:00 97.3 80 20 95/58 (70) 97 10/06/18 03:37 83 20 99 Facial 30 10/06/18 03:25 90 10/06/18 01:56 86 20 98 Facial 30 10/06/18 01:55 85 20 98 Nasal Cannula 2.0 28 10/06/18 01:46 88 20 97 Nasal Cannula 2.0 28 10/06/18 00:30 97.9 84 20 122/73 (89) 98 10/05/18 23:36 96 10/05/18 21:00 Nasal Cannula 3.0 10/05/18 20:30 97.2 94 20 113/67 (82) 97 10/05/18 20:00 98 20 98 Nasal Cannula 2.0 10/05/18 19:59 98 20 98 Nasal Cannula 2.0 28 10/05/18 19:59 98 20 98 Nasal Cannula 2.0 28 10/05/18 19:50 98 Nasal Cannula 2.0 28 10/05/18 19:45 94 20 98 Nasal Cannula 2.0 10/05/18 19:02 86 10/05/18 16:00 113 10/05/18 16:00 98.3 97 18 95/56 (69) 97 Intake and Output 10/05/18 10/06/18 19:00 07:00 Intake Total 1080 ml 515 ml Balance 1080 ml 515 ml Intake Oral 1080 ml 240 ml IV Total 275 ml # Voids 4 1 # Bowel Movements 1 General Appearance: WD/WN, no acute distress, other - obese female HEENT: normocephalic, atraumatic, anicteric, mucous membranes moist Respiratory/Chest: chest wall non-tender, lungs clear, normal breath sounds, no respiratory distress, no accessory muscle use Cardiovascular: normal peripheral pulses, normal rate, regular rhythm Abdomen: normal bowel sounds, soft, non tender, no organomegaly, non distended , no mass Extremities: no cyanosis, no clubbing, no edema Microbiology Date/Time Source Procedure Growth Status 10/04/18 16:50 Blood Blood Culture - Preliminary NO GROWTH AFTER 24 HOURS Resulted 10/04/18 16:35 Blood Blood Culture - Preliminary NO GROWTH AFTER 24 HOURS Resulted Laboratory Tests 10/06/18 10:09: White Blood Count 18.3H, Red Blood Count 4.71, Hemoglobin 12.7, Hematocrit 40.0 , Mean Corpuscular Volume 85, Mean Corpuscular Hemoglobin 26.8L, Mean Corpuscular Hemoglobin Concent 31.6L, Red Cell Distribution Width 13.9, Platelet Count 313, Mean Platelet Volume 6.9, Neutrophils (%) (Auto) , Lymphocytes (%) (Auto) , Monocytes (%) (Auto) , Eosinophils (%) (Auto) , Basophils (%) (Auto) , Differential Total Cells Counted 100, Neutrophils % ( Manual) 57, Lymphocytes % (Manual) 25, Monocytes % (Manual) 12H, Eosinophils % ( Manual) 2, Basophils % (Manual) 0, Band Neutrophils 4, Platelet Estimate Adequate, Platelet Morphology Normal, Red Blood Cell Morphology Normal, Sodium Level 142, Potassium Level 3.5, Chloride Level 103, Carbon Dioxide Level 35H, Anion Gap 5, Blood Urea Nitrogen 24H, Creatinine 1.0, Estimat Glomerular Filtration Rate > 60, Glucose Level 203H, Calcium Level 9.6, Vancomycin Level Trough 16.6H Current Medications Medications (Trade) Dose Ordered Sig/John Route PRN Reason Start Time Stop Time Status Last Admin Dose Admin Acetaminophen (Tylenol) 650 mg Q4H PRN ORAL Mild Pain/Temp > 100.5 10/01/18 03:00 10/31/18 02:59 Acetaminophen/ Hydrocodone Bitart ([place] 10/325) 1 tab Q4H PRN ORAL For moderate-severe Pain >5/10 10/01/18 03:00 10/08/18 02:59 10/06/18 12:08 Albuterol/ Ipratropium (Albuterol/ Ipratropium) 3 ml Q6HRT HHN 10/01/18 19:00 10/06/18 18:59 10/06/18 13:53 Atorvastatin Calcium (Lipitor) 20 mg BEDTIME ORAL 10/01/18 21:00 10/31/18 20:59 10/05/18 21:18 Benazepril HCl (Lotensin) 10 mg DAILY ORAL 10/02/18 09:00 11/01/18 08:59 10/06/18 08:55 Ceftriaxone Sodium 2 gm/ Dextrose 55 ml @ 110 mls/hr Q24H IVPB 10/01/18 12:00 10/08/18 11:59 10/06/18 12:08 Dextrose (Dextrose 50%) 25 ml Q30M PRN IV Hypoglycemia 10/01/18 08:15 10/31/18 08:14 Dextrose (Dextrose 50%) 50 ml Q30M PRN IV Hypoglycemia 10/01/18 08:15 10/31/18 08:14 Doxycycline Monohydrate (Doxycycline Monohydrate) 100 mg EVERY 12 HOURS ORAL 10/01/18 21:00 10/08/18 09:01 10/06/18 08:55 Heparin Sodium (Porcine) (Heparin 5000 units/ml) 5,000 units EVERY 12 HOURS SUBQ 10/01/18 09:00 10/31/18 08:59 10/06/18 09:05 Hydrochlorothiazide (Hydrodiuril) 12.5 mg DAILY ORAL 10/02/18 09:00 11/01/18 08:59 10/06/18 08:55 Insulin Aspart (NovoLOG) BEFORE MEALS AND HS SUBQ 10/01/18 11:30 10/31/18 11:29 10/06/18 11:37 Insulin Aspart (NovoLOG) 10 units BEFORE MEALS SUBQ 10/04/18 11:30 11/02/18 06:29 10/06/18 11:35 Insulin Detemir (Levemir) 30 units BEDTIME SUBQ 10/03/18 21:00 11/01/18 21:59 10/05/18 21:45 Ketotifen Fumarate (Zatidor) 1 drop BID BOTH EYES 10/01/18 18:00 10/31/18 17:59 10/06/18 08:56 Lorazepam (Ativan 2mg/ml 1ml) 1 mg Q8H PRN IV For Anxiety 10/04/18 20:45 10/11/18 20:44 10/05/18 21:35 Metformin HCl (Glucophage) 1,000 mg BIDBL ORAL 10/02/18 06:30 11/01/18 06:29 10/06/18 11:41 Pantoprazole (Protonix) 40 mg DAILY ORAL 10/01/18 09:00 10/31/18 08:59 10/06/18 08:55 Pioglitazone HCl (Actos) 30 mg ACBREAKFAST ORAL 10/02/18 06:30 11/01/18 06:29 10/06/18 06:36 Prednisone (predniSONE) 30 mg DAILY ORAL 10/06/18 09:00 11/03/18 08:59 10/06/18 08:55 Promethazine HCl/ Codeine (Phenergan with Codeine) 10 ml TID PRN ORAL For Cough 10/01/18 03:00 10/31/18 02:59 10/06/18 05:11 Salmeterol Xinafoate/ Fluticasone (Advair 250/50 Diskus) 1 puffs BID INH 10/01/18 18:00 10/31/18 17:59 10/06/18 10:24 Sitagliptin Phosphate (Januvia) 100 mg ACBREAKFAST ORAL 10/04/18 08:00 11/03/18 07:59 10/06/18 06:36 Vancomycin HCl (Vanco rx to dose) 1 ea DAILY PRN MISC Per rx protocol 10/02/18 09:45 11/01/18 09:44 Vancomycin HCl/ Dextrose 275 ml @ 184 mls/hr Q12HR@1100,2300 IVPB 10/03/18 23:00 10/08/18 22:59 10/06/18 12:25 Oscar Pena MD Oct 06, 2018 15:34
[2018-10-06] MEDS ORDERED: Albuterol/Ipratropium 3ml neb HHN PRN (15:45)
[2018-10-06 16:00] VITALS: BP 101/48
[2018-10-06] MEDS: LORazepam Inj 2mg/ml 1ml IV PRN ×2 (16:02→20:08)
--- NOTE | 2018-10-06 17:20 | Infectious Diseases Prog Note ---
Assessment/Plan Problems: (1) Bacteremia due to Gram-positive bacteria Assessment & Plan: with culture grew staph epidermidis out of four bottles , most likely real , source could be skin cracks in her feet . continue vancomycin for two weeks starting from 10/04 , since her repeated blood culture x2 is negative which confirm clearance . transthoracic echo showed no vegetations . may switch to oral zyvox 600 mg po q 12 hrs for two weeks if iv antibiotics therapy is no feasible at home (2) COPD (chronic obstructive pulmonary disease) Assessment & Plan: with exacerbations due to the above, continue inhalers, antibiotics and taper steroids (3) Edema of both legs Assessment & Plan: possible heart failure related, continue diuresis as per cardiology (4) Diabetes mellitus Assessment & Plan: recommend tight glycemic control to keep blood glucose between 100-140 Subjective Constitutional: Reports: no symptoms HEENT: Reports: no symptoms Respiratory: Reports: no symptoms Breasts: Reports: no symptoms Cardiovascular: Reports: no symptoms Gastrointestinal/Abdominal: Reports: no symptoms Genitourinary: Reports: no symptoms Neurologic: Reports: no symptoms Psychiatric: Reports: no symptoms Skin: Reports: no symptoms Endocrine: Reports: no symptoms Hematologic: Reports: no symptoms Musculoskeletal: Reports: no symptoms Allergies: Coded Allergies: ERYTHROMYCIN BASE (Verified Allergy, Severe, Shortness of Breath, 10/01/18) Per pt, states that she got "short of breath and spread out in hives" Objective Vital Signs Last 24 Hour Vital Signs Date Time Temp Pulse Resp B/P (MAP) Pulse Ox O2 Delivery O2 Flow Rate FiO2 10/06/18 13:57 98 20 98 Nasal Cannula 2.0 28 10/06/18 13:51 88 20 97 Nasal Cannula 2.0 28 10/06/18 12:00 97.2 82 20 89/58 (68) 96 10/06/18 10:24 90 20 97 Room Air 21 10/06/18 10:24 90 20 97 Room Air 10/06/18 09:00 Nasal Cannula 3.0 10/06/18 08:55 131/82 10/06/18 08:00 98.2 87 20 131/82 (98) 97 10/06/18 08:00 97 10/06/18 07:07 98 Nasal Cannula 2.0 28 10/06/18 07:07 90 18 96 Room Air 10/06/18 07:05 Nasal Cannula 10/06/18 04:31 86 20 98 Nasal Cannula 2.0 28 10/06/18 04:00 97.3 80 20 95/58 (70) 97 10/06/18 03:37 83 20 99 Facial 30 10/06/18 03:25 90 10/06/18 01:56 86 20 98 Facial 30 10/06/18 01:55 85 20 98 Nasal Cannula 2.0 28 10/06/18 01:46 88 20 97 Nasal Cannula 2.0 10/06/18 00:30 97.9 84 20 122/73 (89) 98 10/05/18 23:36 96 10/05/18 21:00 Nasal Cannula 3.0 10/05/18 20:30 97.2 94 20 113/67 (82) 97 10/05/18 20:00 98 20 98 Nasal Cannula 2.0 28 10/05/18 19:59 98 20 98 Nasal Cannula 2.0 28 10/05/18 19:59 98 20 98 Nasal Cannula 2.0 10/05/18 19:50 98 Nasal Cannula 2.0 10/05/18 19:45 94 20 98 Nasal Cannula 2.0 28 10/05/18 19:02 86 Height (Feet): 5 Height (Inches): 3.00 Weight (Pounds): 295 General Appearance: WD/WN, no acute distress HEENT: normocephalic, atraumatic, anicteric, mucous membranes moist, PERRL, EOMI, pharynx normal, supple, no JVD Respiratory/Chest: chest wall non-tender, normal breath sounds, no respiratory distress, no accessory muscle use, decreased breath sounds Cardiovascular: normal peripheral pulses, normal rate, regular rhythm, no gallop/murmur, no JVD Abdomen: normal bowel sounds, soft, non tender, no organomegaly, non distended , no mass, no scars Genitourinary: normal external genitalia Extremities: no cyanosis, no clubbing Skin: no rash, no lesions, no ulcers Neurologic/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, no motor/sensory deficits, alert, oriented x 3, responsive Lymphatic: no neck adenopathy, no groin adenopathy Musculoskeletal: normal muscle bulk, no effusion Microbiology Date/Time Source Procedure Growth Status 10/04/18 16:50 Blood Blood Culture - Preliminary NO GROWTH AFTER 24 HOURS Resulted 10/04/18 16:35 Blood Blood Culture - Preliminary NO GROWTH AFTER 24 HOURS Resulted Laboratory Tests Test 10/06/18 10:09 White Blood Count 18.3 K/UL (4.8-10.8) H Red Blood Count 4.71 M/UL (4.20-5.40) Hemoglobin 12.7 G/DL (12.0-16.0) Hematocrit 40.0 % (37.0-47.0) Mean Corpuscular Volume 85 FL (80-99) Mean Corpuscular Hemoglobin 26.8 PG (27.0-31.0) L Mean Corpuscular Hemoglobin Concent 31.6 G/DL (32.0-36.0) L Red Cell Distribution Width 13.9 % (11.6-14.8) Platelet Count 313 K/UL (150-450) Mean Platelet Volume 6.9 FL (6.5-10.1) Neutrophils (%) (Auto) % (45.0-75.0) Lymphocytes (%) (Auto) % (20.0-45.0) Monocytes (%) (Auto) % (1.0-10.0) Eosinophils (%) (Auto) % (0.0-3.0) Basophils (%) (Auto) % (0.0-2.0) Differential Total Cells Counted 100 Neutrophils % (Manual) 57 % (45-75) Lymphocytes % (Manual) 25 % (20-45) Monocytes % (Manual) 12 % (1-10) H Eosinophils % (Manual) 2 % (0-3) Basophils % (Manual) 0 % (0-2) Band Neutrophils 4 % (0-8) Platelet Estimate Adequate Platelet Morphology Normal Red Blood Cell Morphology Normal Sodium Level 142 MMOL/L (136-145) Potassium Level 3.5 MMOL/L (3.5-5.1) Chloride Level 103 MMOL/L (98-107) Carbon Dioxide Level 35 MMOL/L (21-32) H Anion Gap 5 mmol/L (5-15) Blood Urea Nitrogen 24 mg/dL (7-18) H Creatinine 1.0 MG/DL (0.55-1.30) Estimat Glomerular Filtration Rate > 60 mL/min (>60) Glucose Level 203 MG/DL (74-106) H Calcium Level 9.6 MG/DL (8.5-10.1) Vancomycin Level Trough 16.6 ug/mL (5.0-12.0) H Current Medications Medications (Trade) Dose Ordered Sig/John Route PRN Reason Start Time Stop Time Status Last Admin Dose Admin Acetaminophen (Tylenol) 650 mg Q4H PRN ORAL Mild Pain/Temp > 100.5 10/01/18 03:00 10/31/18 02:59 Acetaminophen/ Hydrocodone Bitart ([place] 10/325) 1 tab Q4H PRN ORAL For moderate-severe Pain >5/10 10/01/18 03:00 10/08/18 02:59 10/06/18 12:08 Albuterol/ Ipratropium (Albuterol/ Ipratropium) 3 ml Q4H PRN HHN Shortness of Breath 10/06/18 15:45 10/11/18 15:44 Albuterol/ Ipratropium (Albuterol/ Ipratropium) 3 ml Q6HRT HHN 10/01/18 19:00 10/06/18 18:59 10/06/18 13:53 Atorvastatin Calcium (Lipitor) 20 mg BEDTIME ORAL 10/01/18 21:00 10/31/18 20:59 10/05/18 21:18 Benazepril HCl (Lotensin) 10 mg DAILY ORAL 10/02/18 09:00 11/01/18 08:59 10/06/18 08:55 Ceftriaxone Sodium 2 gm/ Dextrose 55 ml @ 110 mls/hr Q24H IVPB 10/01/18 12:00 10/08/18 11:59 10/06/18 12:08 Dextrose (Dextrose 50%) 25 ml Q30M PRN IV Hypoglycemia 10/01/18 08:15 10/31/18 08:14 Dextrose (Dextrose 50%) 50 ml Q30M PRN IV Hypoglycemia 10/01/18 08:15 10/31/18 08:14 Doxycycline Monohydrate (Doxycycline Monohydrate) 100 mg EVERY 12 HOURS ORAL 10/01/18 21:00 10/08/18 09:01 10/06/18 08:55 Heparin Sodium (Porcine) (Heparin 5000 units/ml) 5,000 units EVERY 12 HOURS SUBQ 10/01/18 09:00 10/31/18 08:59 10/06/18 09:05 Hydrochlorothiazide (Hydrodiuril) 12.5 mg DAILY ORAL 10/02/18 09:00 11/01/18 08:59 10/06/18 08:55 Insulin Aspart (NovoLOG) BEFORE MEALS AND HS SUBQ 10/01/18 11:30 10/31/18 11:29 10/06/18 16:34 Insulin Aspart (NovoLOG) 10 units BEFORE MEALS SUBQ 10/04/18 11:30 11/02/18 06:29 10/06/18 16:29 Insulin Detemir (Levemir) 30 units BEDTIME SUBQ 10/03/18 21:00 11/01/18 21:59 10/05/18 21:45 Ketotifen Fumarate (Zatidor) 1 drop BID BOTH EYES 10/01/18 18:00 10/31/18 17:59 10/06/18 08:56 Lorazepam (Ativan 2mg/ml 1ml) 1 mg Q8H PRN IV For Anxiety 10/04/18 20:45 10/11/18 20:44 10/06/18 16:02 Metformin HCl (Glucophage) 1,000 mg BIDBL ORAL 10/02/18 06:30 11/01/18 06:29 10/06/18 11:41 Pantoprazole (Protonix) 40 mg DAILY ORAL 10/01/18 09:00 10/31/18 08:59 10/06/18 08:55 Pioglitazone HCl (Actos) 30 mg ACBREAKFAST ORAL 10/02/18 06:30 11/01/18 06:29 10/06/18 06:36 Prednisone (predniSONE) 20 mg DAILY ORAL 10/07/18 09:00 11/03/18 08:59 Promethazine HCl/ Codeine (Phenergan with Codeine) 10 ml TID PRN ORAL For Cough 10/01/18 03:00 10/31/18 02:59 10/06/18 05:11 Salmeterol Xinafoate/ Fluticasone (Advair 250/50 Diskus) 1 puffs BID INH 10/01/18 18:00 10/31/18 17:59 10/06/18 10:24 Sitagliptin Phosphate (Januvia) 100 mg ACBREAKFAST ORAL 10/04/18 08:00 11/03/18 07:59 10/06/18 06:36 Vancomycin HCl (Vanco rx to dose) 1 ea DAILY PRN MISC Per rx protocol 10/02/18 09:45 11/01/18 09:44 Vancomycin HCl/ Dextrose 275 ml @ 184 mls/hr Q12HR@1100,2300 IVPB 10/03/18 23:00 10/08/18 22:59 10/06/18 12:25 Dedrick Goldman M.D. Oct 06, 2018 17:20
--- NOTE | 2018-10-06 18:42 | General Progress Note ---
Assessment/Plan Problem List: (1) Diabetes mellitus ICD Codes: E11.9 - Type 2 diabetes mellitus without complications SNOMED: 49977573 (2) COPD (chronic obstructive pulmonary disease) ICD Codes: J44.9 - Chronic obstructive pulmonary disease, unspecified SNOMED: 91289963 (3) Asthma attack ICD Codes: J45.901 - Unspecified asthma with (acute) exacerbation SNOMED: 409789321 (4) Hyperglycemia ICD Codes: R73.9 - Hyperglycemia, unspecified SNOMED: 68174713 Assessment/Plan: on Prednisone 20 mg daily - continue Levemir 30 units qhs - continue Novolog 10 units ac tid - continue Metformin 1000 mg bid - continue Januvia 100 mg daily - continue Actos 30 mg daily - continue NISS ac / hs Subjective Allergies: Coded Allergies: ERYTHROMYCIN BASE (Verified Allergy, Severe, Shortness of Breath, 10/01/18) Per pt, states that she got "short of breath and spread out in hives" All Systems: reviewed and negative except above Subjective events noted Item Value Date Time Bedside Blood Glucose 245 mg/dl H 10/06/18 1634 Bedside Blood Glucose 196 mg/dl H 10/06/18 1137 Bedside Blood Glucose 137 mg/dl H 10/06/18 0738 Bedside Blood Glucose 137 mg/dl H 10/06/18 0628 Bedside Blood Glucose 179 mg/dl H 10/05/18 2145 Bedside Blood Glucose 306 mg/dl H 10/05/18 1719 Objective Last 24 Hour Vital Signs Date Time Temp Pulse Resp B/P (MAP) Pulse Ox O2 Delivery O2 Flow Rate FiO2 10/06/18 16:00 91 10/06/18 16:00 98.4 81 20 101/48 (65) 90 10/06/18 13:57 98 20 98 Nasal Cannula 2.0 28 10/06/18 13:51 88 20 97 Nasal Cannula 2.0 28 10/06/18 12:00 97.2 82 20 89/58 (68) 96 10/06/18 12:00 93 10/06/18 10:24 90 20 97 Room Air 21 10/06/18 10:24 90 20 97 Room Air 21 10/06/18 09:00 Nasal Cannula 3.0 10/06/18 08:55 131/82 10/06/18 08:00 98.2 87 20 131/82 (98) 97 10/06/18 08:00 97 10/06/18 07:07 98 Nasal Cannula 2.0 28 10/06/18 07:07 90 18 96 Room Air 21 10/06/18 07:05 Nasal Cannula 10/06/18 04:31 86 20 98 Nasal Cannula 2.0 28 10/06/18 04:00 97.3 80 20 95/58 (70) 97 10/06/18 03:37 83 20 99 Facial 30 10/06/18 03:25 90 10/06/18 01:56 86 20 98 Facial 30 10/06/18 01:55 85 20 98 Nasal Cannula 2.0 28 10/06/18 01:46 88 20 97 Nasal Cannula 2.0 10/06/18 00:30 97.9 84 20 122/73 (89) 98 10/05/18 23:36 96 10/05/18 21:00 Nasal Cannula 3.0 10/05/18 20:30 97.2 94 20 113/67 (82) 97 10/05/18 20:00 98 20 98 Nasal Cannula 2.0 10/05/18 19:59 98 20 98 Nasal Cannula 2.0 10/05/18 19:59 98 20 98 Nasal Cannula 2.0 10/05/18 19:50 98 Nasal Cannula 2.0 10/05/18 19:45 94 20 98 Nasal Cannula 2.0 10/05/18 19:02 86 Intake and Output 10/05/18 10/06/18 19:00 07:00 Intake Total 1080 ml 515 ml Balance 1080 ml 515 ml Intake Oral 1080 ml 240 ml IV Total 275 ml # Voids 4 1 # Bowel Movements 1 Laboratory Tests 10/06/18 10:09: White Blood Count 18.3H, Red Blood Count 4.71, Hemoglobin 12.7, Hematocrit 40.0 , Mean Corpuscular Volume 85, Mean Corpuscular Hemoglobin 26.8L, Mean Corpuscular Hemoglobin Concent 31.6L, Red Cell Distribution Width 13.9, Platelet Count 313, Mean Platelet Volume 6.9, Neutrophils (%) (Auto) , Lymphocytes (%) (Auto) , Monocytes (%) (Auto) , Eosinophils (%) (Auto) , Basophils (%) (Auto) , Differential Total Cells Counted 100, Neutrophils % ( Manual) 57, Lymphocytes % (Manual) 25, Monocytes % (Manual) 12H, Eosinophils % ( Manual) 2, Basophils % (Manual) 0, Band Neutrophils 4, Platelet Estimate Adequate, Platelet Morphology Normal, Red Blood Cell Morphology Normal, Sodium Level 142, Potassium Level 3.5, Chloride Level 103, Carbon Dioxide Level 35H, Anion Gap 5, Blood Urea Nitrogen 24H, Creatinine 1.0, Estimat Glomerular Filtration Rate > 60, Glucose Level 203H, Calcium Level 9.6, Vancomycin Level Trough 16.6H Height (Feet): 5 Height (Inches): 3.00 Weight (Pounds): 295 General Appearance: no apparent distress Neck: normal alignment Cardiovascular: normal rate Respiratory/Chest: expiratory wheezing Abdomen: normal bowel sounds Pelvis: normal external exam Objective Current Medications Medications (Trade) Dose Ordered Sig/John Route PRN Reason Start Time Stop Time Status Last Admin Dose Admin Acetaminophen (Tylenol) 650 mg Q4H PRN ORAL Mild Pain/Temp > 100.5 10/01/18 03:00 10/31/18 02:59 Acetaminophen/ Hydrocodone Bitart ([place] 10/325) 1 tab Q4H PRN ORAL For moderate-severe Pain >5/10 10/01/18 03:00 10/08/18 02:59 10/06/18 12:08 Albuterol/ Ipratropium (Albuterol/ Ipratropium) 3 ml Q4H PRN HHN Shortness of Breath 10/06/18 15:45 10/11/18 15:44 Albuterol/ Ipratropium (Albuterol/ Ipratropium) 3 ml Q6HRT HHN 10/01/18 19:00 10/06/18 18:59 10/06/18 13:53 Atorvastatin Calcium (Lipitor) 20 mg BEDTIME ORAL 10/01/18 21:00 10/31/18 20:59 10/05/18 21:18 Benazepril HCl (Lotensin) 10 mg DAILY ORAL 10/02/18 09:00 11/01/18 08:59 10/06/18 08:55 Ceftriaxone Sodium 2 gm/ Dextrose 55 ml @ 110 mls/hr Q24H IVPB 10/01/18 12:00 10/08/18 11:59 10/06/18 12:08 Dextrose (Dextrose 50%) 25 ml Q30M PRN IV Hypoglycemia 10/01/18 08:15 10/31/18 08:14 Dextrose (Dextrose 50%) 50 ml Q30M PRN IV Hypoglycemia 10/01/18 08:15 10/31/18 08:14 Doxycycline Monohydrate (Doxycycline Monohydrate) 100 mg EVERY 12 HOURS ORAL 10/01/18 21:00 10/08/18 09:01 10/06/18 08:55 Heparin Sodium (Porcine) (Heparin 5000 units/ml) 5,000 units EVERY 12 HOURS SUBQ 10/01/18 09:00 10/31/18 08:59 10/06/18 09:05 Hydrochlorothiazide (Hydrodiuril) 12.5 mg DAILY ORAL 10/02/18 09:00 11/01/18 08:59 10/06/18 08:55 Insulin Aspart (NovoLOG) BEFORE MEALS AND HS SUBQ 10/01/18 11:30 10/31/18 11:29 10/06/18 16:34 Insulin Aspart (NovoLOG) 10 units BEFORE MEALS SUBQ 10/04/18 11:30 11/02/18 06:29 10/06/18 16:29 Insulin Detemir (Levemir) 30 units BEDTIME SUBQ 10/03/18 21:00 11/01/18 21:59 10/05/18 21:45 Ketotifen Fumarate (Zatidor) 1 drop BID BOTH EYES 10/01/18 18:00 10/31/18 17:59 10/06/18 08:56 Lorazepam (Ativan 2mg/ml 1ml) 1 mg Q8H PRN IV For Anxiety 10/04/18 20:45 10/11/18 20:44 10/06/18 16:02 Metformin HCl (Glucophage) 1,000 mg BIDBL ORAL 10/02/18 06:30 11/01/18 06:29 10/06/18 11:41 Pantoprazole (Protonix) 40 mg DAILY ORAL 10/01/18 09:00 10/31/18 08:59 10/06/18 08:55 Pioglitazone HCl (Actos) 30 mg ACBREAKFAST ORAL 10/02/18 06:30 11/01/18 06:29 10/06/18 06:36 Prednisone (predniSONE) 20 mg DAILY ORAL 10/07/18 09:00 11/03/18 08:59 Promethazine HCl/ Codeine (Phenergan with Codeine) 10 ml TID PRN ORAL For Cough 10/01/18 03:00 10/31/18 02:59 10/06/18 05:11 Salmeterol Xinafoate/ Fluticasone (Advair 250/50 Diskus) 1 puffs BID INH 10/01/18 18:00 10/31/18 17:59 10/06/18 10:24 Sitagliptin Phosphate (Januvia) 100 mg ACBREAKFAST ORAL 10/04/18 08:00 11/03/18 07:59 10/06/18 06:36 Vancomycin HCl (Vanco rx to dose) 1 ea DAILY PRN MISC Per rx protocol 10/02/18 09:45 11/01/18 09:44 Vancomycin HCl/ Dextrose 275 ml @ 184 mls/hr Q12HR@1100,2300 IVPB 10/03/18 23:00 10/08/18 22:59 10/06/18 12:25 Stuart Layton MD Oct 06, 2018 18:42
--- NOTE | 2018-10-06 19:24 | NUR ---
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
--- NOTE | 2018-10-06 19:54 | NUR ---
HAND-OFF: Report given to Bibiana/RN, Patient is sitting up on chair, no acute distress noted, in stable condition. Endorsed plan of care.
[2018-10-06] MEDS: Atorvastatin 20mg tab ORAL SCH (19:58)
[2018-10-06] MEDS: Levemir Flexpen SUBQ SCH (20:00)
[2018-10-06 20:30] VITALS: BP 102/58
--- NOTE | 2018-10-06 22:22 | Cardiology Progress Note ---
Assessment/Plan Assessment/Plan 1. Dyspnea, possible etiologies include acute exacerbation of chronic obstructive pulmonary disease vs PRISCILLA. 2. Lower extremity edema could be venous insufficiency, use of prednisone with associated water or sodium retention. 3. Staph Epidermidis bacteremia not a common organism for minto valves, continue ABx therapy. 4. History of diabetes mellitus. 5. History of fibromyalgia. 6. History of cerebrovascular accident with left hemiparesis. Subjective Subjective Sinus rhythm at rate of 84. Objective Last 24 Hour Vital Signs Date Time Temp Pulse Resp B/P (MAP) Pulse Ox O2 Delivery O2 Flow Rate FiO2 10/06/18 19:11 84 18 94 Nasal Cannula 2.0 28 10/06/18 19:10 94 Nasal Cannula 2.0 28 10/06/18 19:08 82 18 94 Nasal Cannula 2.0 10/06/18 16:00 91 10/06/18 16:00 98.4 81 20 101/48 (65) 90 10/06/18 13:57 98 20 98 Nasal Cannula 2.0 10/06/18 13:51 88 20 97 Nasal Cannula 2.0 10/06/18 12:00 97.2 82 20 89/58 (68) 96 10/06/18 12:00 93 10/06/18 10:24 90 20 97 Room Air 21 10/06/18 10:24 90 20 97 Room Air 10/06/18 09:00 Nasal Cannula 3.0 10/06/18 08:55 131/82 10/06/18 08:00 98.2 87 20 131/82 (98) 97 10/06/18 08:00 97 10/06/18 07:07 98 Nasal Cannula 2.0 10/06/18 07:07 90 18 96 Room Air 21 10/06/18 07:05 Nasal Cannula 10/06/18 04:31 86 20 98 Nasal Cannula 2.0 10/06/18 04:00 97.3 80 20 95/58 (70) 97 10/06/18 03:37 83 20 99 Facial 30 10/06/18 03:25 90 10/06/18 01:56 86 20 98 Facial 30 10/06/18 01:55 85 20 98 Nasal Cannula 2.0 10/06/18 01:46 88 20 97 Nasal Cannula 2.0 10/06/18 00:30 97.9 84 20 122/73 (89) 98 10/05/18 23:36 96 Intake and Output 10/05/18 10/06/18 18:59 06:59 Intake Total 1080 ml 275 ml Balance 1080 ml 275 ml Intake Oral 1080 ml IV Total 275 ml # Voids 4 # Bowel Movements 1 2D Echo: LVEF 55%, Mild LAE, RVSP 41 mmHg, Grade I LVDD Laboratory Tests Test 10/06/18 10:09 White Blood Count 18.3 K/UL (4.8-10.8) H Red Blood Count 4.71 M/UL (4.20-5.40) Hemoglobin 12.7 G/DL (12.0-16.0) Hematocrit 40.0 % (37.0-47.0) Mean Corpuscular Volume 85 FL (80-99) Mean Corpuscular Hemoglobin 26.8 PG (27.0-31.0) L Mean Corpuscular Hemoglobin Concent 31.6 G/DL (32.0-36.0) L Red Cell Distribution Width 13.9 % (11.6-14.8) Platelet Count 313 K/UL (150-450) Mean Platelet Volume 6.9 FL (6.5-10.1) Neutrophils (%) (Auto) % (45.0-75.0) Lymphocytes (%) (Auto) % (20.0-45.0) Monocytes (%) (Auto) % (1.0-10.0) Eosinophils (%) (Auto) % (0.0-3.0) Basophils (%) (Auto) % (0.0-2.0) Differential Total Cells Counted 100 Neutrophils % (Manual) 57 % (45-75) Lymphocytes % (Manual) 25 % (20-45) Monocytes % (Manual) 12 % (1-10) H Eosinophils % (Manual) 2 % (0-3) Basophils % (Manual) 0 % (0-2) Band Neutrophils 4 % (0-8) Platelet Estimate Adequate Platelet Morphology Normal Red Blood Cell Morphology Normal Sodium Level 142 MMOL/L (136-145) Potassium Level 3.5 MMOL/L (3.5-5.1) Chloride Level 103 MMOL/L (98-107) Carbon Dioxide Level 35 MMOL/L (21-32) H Anion Gap 5 mmol/L (5-15) Blood Urea Nitrogen 24 mg/dL (7-18) H Creatinine 1.0 MG/DL (0.55-1.30) Estimat Glomerular Filtration Rate > 60 mL/min (>60) Glucose Level 203 MG/DL (74-106) H Calcium Level 9.6 MG/DL (8.5-10.1) Vancomycin Level Trough 16.6 ug/mL (5.0-12.0) H Microbiology Date/Time Source Procedure Growth Status 10/04/18 16:50 Blood Blood Culture - Preliminary NO GROWTH AFTER 24 HOURS Resulted 10/04/18 16:35 Blood Blood Culture - Preliminary NO GROWTH AFTER 24 HOURS Resulted Objective HEENT: Atraumatic and normocephalic. Anicteric. Pupils are equal, round, and reactive to light and accommodation. Extraocular muscles intact. NECK: Cannot assess JVP due to short neck and obesity. No carotid bruit. CARDIOVASCULAR: Normal S1, S2. Regular rate and rhythm. No murmurs, gallops, or rubs. PMI is at fourth intercostal space in the midclavicular line. LUNGS: Diminished breath sounds with bilateral rhonchi, diffuse in both lungs. ABDOMEN: Obese. No hepatosplenomegaly. Soft. Positive bowel sounds. EXTREMITIES: There is 1 to 2+ bilateral lower extremity edema. No clubbing or cyanosis. Anand Nelson MD Oct 06, 2018 22:22
[2018-10-07] VITALS: BP 112/64
[2018-10-07 04:00] VITALS: BP 116/70
[2018-10-07] MEDS: metFORMIN 500mg tab ORAL SCH ×2 (06:04→11:17)
[2018-10-07] MEDS: NovoLOG Insulin Flexpen SUBQ SCH ×4 (06:05→11:28)
--- NOTE | 2018-10-07 06:30 | General Progress Note ---
Assessment/Plan Problem List: (1) Diabetes mellitus ICD Codes: E11.9 - Type 2 diabetes mellitus without complications SNOMED: 02078504 (2) COPD (chronic obstructive pulmonary disease) ICD Codes: J44.9 - Chronic obstructive pulmonary disease, unspecified SNOMED: 08024699 (3) Asthma attack ICD Codes: J45.901 - Unspecified asthma with (acute) exacerbation SNOMED: 896709260 (4) Hyperglycemia ICD Codes: R73.9 - Hyperglycemia, unspecified SNOMED: 02024658 Assessment/Plan: on Prednisone 20 mg daily - continue Levemir 30 units qhs - continue Novolog 10 units ac tid - continue Metformin 1000 mg bid - continue Januvia 100 mg daily - continue Actos 30 mg daily - continue NISS ac / hs Subjective Allergies: Coded Allergies: ERYTHROMYCIN BASE (Verified Allergy, Severe, Shortness of Breath, 10/01/18) Per pt, states that she got "short of breath and spread out in hives" All Systems: reviewed and negative except above Subjective events noted Item Value Date Time Bedside Blood Glucose 182 mg/dl H 10/07/18 0606 Bedside Blood Glucose 205 mg/dl H 10/06/18 2100 Bedside Blood Glucose 245 mg/dl H 10/06/18 1634 Bedside Blood Glucose 196 mg/dl H 10/06/18 1137 Bedside Blood Glucose 137 mg/dl H 10/06/18 0738 Bedside Blood Glucose 137 mg/dl H 10/06/18 0628 Objective Last 24 Hour Vital Signs Date Time Temp Pulse Resp B/P (MAP) Pulse Ox O2 Delivery O2 Flow Rate FiO2 10/07/18 05:09 70 18 96 Full Face 30 10/07/18 04:05 82 10/07/18 04:00 98.1 84 20 116/70 (85) 98 10/07/18 02:57 77 19 97 Full Face 30 10/07/18 01:26 81 19 96 Full Face 30 10/07/18 00:00 97.7 68 18 112/64 (80) 96 10/06/18 23:54 78 10/06/18 21:00 Nasal Cannula 3.0 10/06/18 20:30 97.3 76 18 102/58 (73) 97 10/06/18 19:11 84 18 94 Nasal Cannula 2.0 28 10/06/18 19:10 94 Nasal Cannula 2.0 28 10/06/18 19:08 82 18 94 Nasal Cannula 2.0 28 10/06/18 19:07 84 10/06/18 16:00 91 10/06/18 16:00 98.4 81 20 101/48 (65) 90 10/06/18 13:57 98 20 98 Nasal Cannula 2.0 28 10/06/18 13:51 88 20 97 Nasal Cannula 2.0 28 10/06/18 12:00 97.2 82 20 89/58 (68) 96 10/06/18 12:00 93 10/06/18 10:24 90 20 97 Room Air 21 10/06/18 10:24 90 20 97 Room Air 21 10/06/18 09:00 Nasal Cannula 3.0 10/06/18 08:55 131/82 10/06/18 08:00 98.2 87 20 131/82 (98) 97 10/06/18 08:00 97 10/06/18 07:07 98 Nasal Cannula 2.0 28 10/06/18 07:07 90 18 96 Room Air 10/06/18 07:05 Nasal Cannula Intake and Output 10/06/18 10/07/18 19:00 07:00 Intake Total 420 ml 275 ml Balance 420 ml 275 ml Intake Oral 420 ml IV Total 275 ml # Voids 3 Laboratory Tests 10/06/18 10:09: White Blood Count 18.3H, Red Blood Count 4.71, Hemoglobin 12.7, Hematocrit 40.0 , Mean Corpuscular Volume 85, Mean Corpuscular Hemoglobin 26.8L, Mean Corpuscular Hemoglobin Concent 31.6L, Red Cell Distribution Width 13.9, Platelet Count 313, Mean Platelet Volume 6.9, Neutrophils (%) (Auto) , Lymphocytes (%) (Auto) , Monocytes (%) (Auto) , Eosinophils (%) (Auto) , Basophils (%) (Auto) , Differential Total Cells Counted 100, Neutrophils % ( Manual) 57, Lymphocytes % (Manual) 25, Monocytes % (Manual) 12H, Eosinophils % ( Manual) 2, Basophils % (Manual) 0, Band Neutrophils 4, Platelet Estimate Adequate, Platelet Morphology Normal, Red Blood Cell Morphology Normal, Sodium Level 142, Potassium Level 3.5, Chloride Level 103, Carbon Dioxide Level 35H, Anion Gap 5, Blood Urea Nitrogen 24H, Creatinine 1.0, Estimat Glomerular Filtration Rate > 60, Glucose Level 203H, Calcium Level 9.6, Vancomycin Level Trough 16.6H Height (Feet): 5 Height (Inches): 3.00 Weight (Pounds): 295 General Appearance: no apparent distress Neck: normal alignment Cardiovascular: normal rate Respiratory/Chest: expiratory wheezing Abdomen: normal bowel sounds Pelvis: normal external exam Edema: 1+ Arm (L), 1+ Arm (R), 1+ Leg (L), 1+ Leg (R), 1+ Pedal (L), 1+ Pedal ( R), 1+ Generalized Objective Current Medications Medications (Trade) Dose Ordered Sig/John Route PRN Reason Start Time Stop Time Status Last Admin Dose Admin Acetaminophen (Tylenol) 650 mg Q4H PRN ORAL Mild Pain/Temp > 100.5 10/01/18 03:00 10/31/18 02:59 Acetaminophen/ Hydrocodone Bitart ([place] 10/325) 1 tab Q4H PRN ORAL For moderate-severe Pain >5/10 10/01/18 03:00 10/08/18 02:59 10/06/18 20:05 Albuterol/ Ipratropium (Albuterol/ Ipratropium) 3 ml Q4H PRN HHN Shortness of Breath 10/06/18 15:45 10/11/18 15:44 Atorvastatin Calcium (Lipitor) 20 mg BEDTIME ORAL 10/01/18 21:00 10/31/18 20:59 10/06/18 19:58 Benazepril HCl (Lotensin) 10 mg DAILY ORAL 10/02/18 09:00 11/01/18 08:59 10/06/18 08:55 Ceftriaxone Sodium 2 gm/ Dextrose 55 ml @ 110 mls/hr Q24H IVPB 10/01/18 12:00 10/08/18 11:59 10/06/18 12:08 Dextrose (Dextrose 50%) 25 ml Q30M PRN IV Hypoglycemia 10/01/18 08:15 10/31/18 08:14 Dextrose (Dextrose 50%) 50 ml Q30M PRN IV Hypoglycemia 10/01/18 08:15 10/31/18 08:14 Doxycycline Monohydrate (Doxycycline Monohydrate) 100 mg EVERY 12 HOURS ORAL 10/01/18 21:00 10/08/18 09:01 10/06/18 19:57 Heparin Sodium (Porcine) (Heparin 5000 units/ml) 5,000 units EVERY 12 HOURS SUBQ 10/01/18 09:00 10/31/18 08:59 10/06/18 19:59 Hydrochlorothiazide (Hydrodiuril) 12.5 mg DAILY ORAL 10/02/18 09:00 11/01/18 08:59 10/06/18 08:55 Insulin Aspart (NovoLOG) BEFORE MEALS AND HS SUBQ 10/01/18 11:30 10/31/18 11:29 10/07/18 06:06 Insulin Aspart (NovoLOG) 10 units BEFORE MEALS SUBQ 10/04/18 11:30 11/02/18 06:29 10/07/18 06:05 Insulin Detemir (Levemir) 30 units BEDTIME SUBQ 10/03/18 21:00 11/01/18 21:59 10/06/18 20:00 Ketotifen Fumarate (Zatidor) 1 drop BID BOTH EYES 10/01/18 18:00 10/31/18 17:59 10/06/18 08:56 Lorazepam (Ativan 2mg/ml 1ml) 1 mg Q8H PRN IV For Anxiety 10/04/18 20:45 10/11/18 20:44 10/06/18 20:08 Metformin HCl (Glucophage) 1,000 mg BIDBL ORAL 10/02/18 06:30 11/01/18 06:29 10/07/18 06:04 Pantoprazole (Protonix) 40 mg DAILY ORAL 10/01/18 09:00 10/31/18 08:59 10/06/18 08:55 Pioglitazone HCl (Actos) 30 mg ACBREAKFAST ORAL 10/02/18 06:30 11/01/18 06:29 10/07/18 06:04 Prednisone (predniSONE) 20 mg DAILY ORAL 10/07/18 09:00 11/03/18 08:59 Promethazine HCl/ Codeine (Phenergan with Codeine) 10 ml TID PRN ORAL For Cough 10/01/18 03:00 10/31/18 02:59 10/06/18 19:58 Salmeterol Xinafoate/ Fluticasone (Advair 250/50 Diskus) 1 puffs BID INH 10/01/18 18:00 10/31/18 17:59 10/06/18 19:06 Sitagliptin Phosphate (Januvia) 100 mg ACBREAKFAST ORAL 10/04/18 08:00 11/03/18 07:59 10/07/18 06:03 Vancomycin HCl (Vanco rx to dose) 1 ea DAILY PRN MISC Per rx protocol 10/02/18 09:45 11/01/18 09:44 Vancomycin HCl/ Dextrose 275 ml @ 184 mls/hr Q12HR@1100,2300 IVPB 10/03/18 23:00 10/08/18 22:59 10/06/18 22:56 Stuart Layton MD Oct 07, 2018 06:30
--- NOTE | 2018-10-07 07:06 | NUR ---
CASE MANAGEMENT:REVIEW 10/07/18 SI: ASTHMA EXACERBATION.NEW ONSET CHF BACTEREMIA. PULMONARY EDEMA. BILATERAL INFILTRATES 98.1 84 20 112/64 97% ON 2L/NC...CPAP AT NIGHT IS: PREDNISONE 20MG PO QD IV VANCOMYCIN Q12 IV ROCEPHIN Q24 SS INSULIN AC+HS LEVEMIR SQ QHS METFORMIN PO BID LOTENSIN PO QD HCTZ PO QD : TELEMETRY STATUS DCP: FROM HOME PLAN: UNABLE TO TAPER OXYGEN...DESATURATES TO LOW 80'S ON ROOM AIR CONTINUE TO TAPER ORAL STEROIDS FAXED CLINICALS TO [facility]...DC ONCE OXYGEN HAS BEEN DELIVERED TO BEDSIDE
--- NOTE | 2018-10-07 07:16 | NUR ---
HAND-OFF: Report given to ELIO Madrid.Patient stable,sleeping.
--- NOTE | 2018-10-07 07:17 | NUR ---
NURSE NOTES: Received report from ELIO Mccarty. Pt in bed, asleep, snoring, respirations regular, no apparent distress, bed in lowest position, call light within reach.
[2018-10-07 08:00] VITALS: BP 102/58
[2018-10-07] MEDS: Wixela 250/50 Inhaler - 60 dose INH SCH (08:35)
[2018-10-07 08:42] VITALS: BP 126/61
[2018-10-07] MEDS: hydroCHLOROthiazide 12.5mg TAB ORAL SCH (08:46)
[2018-10-07] MEDS: Ketotifen Fumarate 0.035% 5ml BOTH EYES SCH (08:47)
[2018-10-07] MEDS: Benazepril 10mg tab ORAL SCH (08:47)
[2018-10-07] MEDS: Heparin 5000 units/ml inj SUBQ SCH (08:48)
[2018-10-07] MEDS: Vancomycin 1.25gm Premix 275 ML IVPB SCH (11:17)
--- NOTE | 2018-10-07 11:55 | Infectious Diseases Prog Note ---
Assessment/Plan Problems: (1) Bacteremia due to Gram-positive bacteria Assessment & Plan: with culture grew staph epidermidis out of four bottles , most likely real , source could be skin cracks in her feet . continue vancomycin for two weeks starting from 10/04 , since her repeated blood culture x2 is negative which confirm clearance . transthoracic echo showed no vegetations . may switch to oral zyvox 600 mg po q 12 hrs for two weeks if iv antibiotics therapy is no feasible at home (2) COPD (chronic obstructive pulmonary disease) Assessment & Plan: with exacerbations due to the above, continue inhalers, antibiotics and taper steroids (3) Edema of both legs Assessment & Plan: possible heart failure related, continue diuresis as per cardiology (4) Diabetes mellitus Assessment & Plan: recommend tight glycemic control to keep blood glucose between 100-140 (5) Vaginal yeast infection Assessment & Plan: suspect due to antibiotics, will give one dose of fluconazole 150 mg po x 1 , stop ceftriaxone and doxy Subjective Constitutional: Reports: no symptoms HEENT: Reports: no symptoms Respiratory: Reports: no symptoms Breasts: Reports: no symptoms Cardiovascular: Reports: no symptoms Gastrointestinal/Abdominal: Reports: no symptoms Genitourinary: Reports: vaginal bleed/discharge Neurologic: Reports: no symptoms Psychiatric: Reports: no symptoms Skin: Reports: no symptoms Endocrine: Reports: no symptoms Hematologic: Reports: no symptoms Musculoskeletal: Reports: no symptoms Allergies: Coded Allergies: ERYTHROMYCIN BASE (Verified Allergy, Severe, Shortness of Breath, 10/01/18) Per pt, states that she got "short of breath and spread out in hives" Objective Vital Signs Last 24 Hour Vital Signs Date Time Temp Pulse Resp B/P (MAP) Pulse Ox O2 Delivery O2 Flow Rate FiO2 10/07/18 09:00 Nasal Cannula 3.0 10/07/18 08:47 126/61 10/07/18 08:42 98.3 95 20 126/61 (82) 98 10/07/18 08:38 95 Nasal Cannula 2.0 28 10/07/18 08:37 93 18 96 Nasal Cannula 2.0 28 10/07/18 08:36 92 20 95 Nasal Cannula 2.0 28 10/07/18 08:00 97.3 76 18 102/58 (73) 97 10/07/18 07:29 99 10/07/18 05:09 70 18 96 Full Face 30 10/07/18 04:05 82 10/07/18 04:00 98.1 84 20 116/70 (85) 98 10/07/18 02:57 77 19 97 Full Face 30 10/07/18 01:26 81 19 96 Full Face 30 10/07/18 00:00 97.7 68 18 112/64 (80) 96 10/06/18 23:54 78 10/06/18 21:00 Nasal Cannula 3.0 10/06/18 20:30 97.3 76 18 102/58 (73) 97 10/06/18 19:11 84 18 94 Nasal Cannula 2.0 28 10/06/18 19:10 94 Nasal Cannula 2.0 28 10/06/18 19:08 82 18 94 Nasal Cannula 2.0 28 10/06/18 19:07 84 10/06/18 16:00 91 10/06/18 16:00 98.4 81 20 101/48 (65) 90 10/06/18 13:57 98 20 98 Nasal Cannula 2.0 28 10/06/18 13:51 88 20 97 Nasal Cannula 2.0 28 10/06/18 12:00 97.2 82 20 89/58 (68) 96 10/06/18 12:00 93 Height (Feet): 5 Height (Inches): 3.00 Weight (Pounds): 295 General Appearance: WD/WN, no acute distress HEENT: normocephalic, atraumatic, anicteric, mucous membranes moist, PERRL Respiratory/Chest: chest wall non-tender, lungs clear, normal breath sounds, no respiratory distress, no accessory muscle use Cardiovascular: normal peripheral pulses, normal rate, regular rhythm, no gallop/murmur, no JVD Abdomen: normal bowel sounds, soft, non tender, no organomegaly, non distended , no mass, no scars Genitourinary: normal external genitalia Extremities: no cyanosis, no clubbing Skin: no rash, no lesions, no ulcers Neurologic/Psychiatric: road marker II-XII grossly normal, no motor/sensory deficits, abnormal gait, alert, responsive, motor weakness Lymphatic: no neck adenopathy, no groin adenopathy Musculoskeletal: normal muscle bulk, no effusion Microbiology Date/Time Source Procedure Growth Status 10/04/18 16:50 Blood Blood Culture - Preliminary NO GROWTH AFTER 48 HOURS Resulted 10/04/18 16:35 Blood Blood Culture - Preliminary NO GROWTH AFTER 48 HOURS Resulted Current Medications Medications (Trade) Dose Ordered Sig/John Route PRN Reason Start Time Stop Time Status Last Admin Dose Admin Acetaminophen (Tylenol) 650 mg Q4H PRN ORAL Mild Pain/Temp > 100.5 10/01/18 03:00 10/31/18 02:59 Acetaminophen/ Hydrocodone Bitart (Lohman 10/325) 1 tab Q4H PRN ORAL For moderate-severe Pain >5/10 10/01/18 03:00 10/08/18 02:59 10/06/18 20:05 Albuterol/ Ipratropium (Albuterol/ Ipratropium) 3 ml Q4H PRN HHN Shortness of Breath 10/06/18 15:45 10/11/18 15:44 Atorvastatin Calcium (Lipitor) 20 mg BEDTIME ORAL 10/01/18 21:00 10/31/18 20:59 10/06/18 19:58 Benazepril HCl (Lotensin) 10 mg DAILY ORAL 10/02/18 09:00 11/01/18 08:59 10/07/18 08:47 Ceftriaxone Sodium 2 gm/ Dextrose 55 ml @ 110 mls/hr Q24H IVPB 10/01/18 12:00 10/08/18 11:59 10/06/18 12:08 Dextrose (Dextrose 50%) 25 ml Q30M PRN IV Hypoglycemia 10/01/18 08:15 10/31/18 08:14 Dextrose (Dextrose 50%) 50 ml Q30M PRN IV Hypoglycemia 10/01/18 08:15 10/31/18 08:14 Doxycycline Monohydrate (Doxycycline Monohydrate) 100 mg EVERY 12 HOURS ORAL 10/01/18 21:00 10/08/18 09:01 10/07/18 08:46 Heparin Sodium (Porcine) (Heparin 5000 units/ml) 5,000 units EVERY 12 HOURS SUBQ 10/01/18 09:00 10/31/18 08:59 10/07/18 08:48 Hydrochlorothiazide (Hydrodiuril) 12.5 mg DAILY ORAL 10/02/18 09:00 11/01/18 08:59 10/07/18 08:46 Insulin Aspart (NovoLOG) BEFORE MEALS AND HS SUBQ 10/01/18 11:30 10/31/18 11:29 10/07/18 11:28 Insulin Aspart (NovoLOG) 10 units BEFORE MEALS SUBQ 10/04/18 11:30 11/02/18 06:29 10/07/18 11:28 Insulin Detemir (Levemir) 30 units BEDTIME SUBQ 10/03/18 21:00 11/01/18 21:59 10/06/18 20:00 Ketotifen Fumarate (Zatidor) 1 drop BID BOTH EYES 10/01/18 18:00 10/31/18 17:59 10/07/18 08:47 Lorazepam (Ativan 2mg/ml 1ml) 1 mg Q8H PRN IV For Anxiety 10/04/18 20:45 10/11/18 20:44 10/06/18 20:08 Metformin HCl (Glucophage) 1,000 mg BIDBL ORAL 10/02/18 06:30 11/01/18 06:29 10/07/18 11:17 Pantoprazole (Protonix) 40 mg DAILY ORAL 10/01/18 09:00 10/31/18 08:59 10/07/18 08:46 Pioglitazone HCl (Actos) 30 mg ACBREAKFAST ORAL 10/02/18 06:30 11/01/18 06:29 10/07/18 06:04 Prednisone (predniSONE) 20 mg DAILY ORAL 10/07/18 09:00 11/03/18 08:59 10/07/18 08:46 Promethazine HCl/ Codeine (Phenergan with Codeine) 10 ml TID PRN ORAL For Cough 10/01/18 03:00 10/31/18 02:59 10/06/18 19:58 Salmeterol Xinafoate/ Fluticasone (Advair 250/50 Diskus) 1 puffs BID INH 10/01/18 18:00 10/31/18 17:59 10/07/18 08:35 Sitagliptin Phosphate (Januvia) 100 mg ACBREAKFAST ORAL 10/04/18 08:00 11/03/18 07:59 10/07/18 06:03 Vancomycin HCl (Vanco rx to dose) 1 ea DAILY PRN MISC Per rx protocol 10/02/18 09:45 11/01/18 09:44 Vancomycin HCl/ Dextrose 275 ml @ 184 mls/hr Q12HR@1100,2300 IVPB 10/03/18 23:00 10/18/18 23:59 10/07/18 11:17 Dedrick Goldman M.D. Oct 07, 2018 11:55
[2018-10-07 12:00] VITALS: BP 106/43
[2018-10-07] MEDS ORDERED: Fluconazole 100mg tab ORAL SCH (12:00)
--- NOTE | 2018-10-07 12:17 | NUR ---
NURSE NOTES: According to pt, she has new insurance and is not getting set up with Home Health. The pt has a list of needs for home healthcare other than oxygen. According to Yumi in CM this list of items can be provided by the home healthcare, but the pt states she needs a new prescription in order to obtain items. RN left message for Dr. Yee asking when he would be in today and notifying him of pt's needs.
--- NOTE | 2018-10-07 13:42 | General Progress Note ---
Assessment/Plan Assessment/Plan: S: I am Feeling much better O: Appears comfortable, Denies any chest pain. family at the bed side PHYSICAL EXAMINATION:HEENT: Atraumatic and normocephalic. CHEST: Diffuse bronchial breathing sounds. Heart: 2 + DUSTIN, Mild diffuse wheezing. MUSCULOSKELETAL: No gross lateralized motor deficit. Positive for 2+ pitting edema in the lower extremity.NEUROLOGY: Awake, alert, and oriented x3. ABDOMEN: Soft. No organomegaly. Morbidly obese. Meds: reviewed and reconciled in the chart IMAGING: Chest x-ray dated September 30, 2018 shows bilateral patchy infiltrates. ASSESSMENT: 1. Asthma exacerbation. 2. Bactremia- Gr positive 2. Pulmonary edema in conjunction with lower extremity edema, likely secondary to new onset heart failure. 3. Morbid obesity. 4. Diabetes type 2. 5. GI and DVT prophylaxis. PLAN OF CARE: will optimse diabetic medication , Ok to followup as o/p Subjective Allergies: Coded Allergies: ERYTHROMYCIN BASE (Verified Allergy, Severe, Shortness of Breath, 10/01/18) Per pt, states that she got "short of breath and spread out in hives" Objective Last 24 Hour Vital Signs Date Time Temp Pulse Resp B/P (MAP) Pulse Ox O2 Delivery O2 Flow Rate FiO2 10/07/18 12:00 98.4 65 20 106/43 (64) 99 10/07/18 12:00 104 10/07/18 09:00 Nasal Cannula 3.0 10/07/18 08:47 126/61 10/07/18 08:42 98.3 95 20 126/61 (82) 98 10/07/18 08:38 95 Nasal Cannula 2.0 28 10/07/18 08:37 93 18 96 Nasal Cannula 2.0 28 10/07/18 08:36 92 20 95 Nasal Cannula 2.0 28 10/07/18 08:00 97.3 76 18 102/58 (73) 97 10/07/18 07:29 99 10/07/18 05:09 70 18 96 Full Face 30 10/07/18 04:05 82 10/07/18 04:00 98.1 84 20 116/70 (85) 98 10/07/18 02:57 77 19 97 Full Face 30 10/07/18 01:26 81 19 96 Full Face 30 10/07/18 00:00 97.7 68 18 112/64 (80) 96 10/06/18 23:54 78 10/06/18 21:00 Nasal Cannula 3.0 10/06/18 20:30 97.3 76 18 102/58 (73) 97 10/06/18 19:11 84 18 94 Nasal Cannula 2.0 28 10/06/18 19:10 94 Nasal Cannula 2.0 28 10/06/18 19:08 82 18 94 Nasal Cannula 2.0 28 10/06/18 19:07 84 10/06/18 16:00 91 10/06/18 16:00 98.4 81 20 101/48 (65) 90 10/06/18 13:57 98 20 98 Nasal Cannula 2.0 28 10/06/18 13:51 88 20 97 Nasal Cannula 2.0 28 Intake and Output 10/06/18 10/07/18 19:00 07:00 Intake Total 420 ml 515 ml Balance 420 ml 515 ml Intake Oral 420 ml 240 ml IV Total 275 ml # Voids 3 Height (Feet): 5 Height (Inches): 3.00 Weight (Pounds): 295 Melody Yee MD Oct 07, 2018 13:42
--- NOTE | 2018-10-07 13:47 | NUR ---
*-* INSURANCE *-* UPDATED CLINICALS HAVE BEEN FAXED: RENEE F:[phone]
[2018-10-07] MEDS ORDERED: Tubing IV Secondary IV ONE (15:29)
[2018-10-07] MEDS ORDERED: NS 275ml ONE (15:29)
--- NOTE | 2018-10-07 15:29 | NUR ---
NURSE NOTES: Pt discharged home with all belongings. pt is ambulatory, accompanied by son and daughter-law, pt signed all DC forms, all RX were given to pt and discussed with pt and family as well as all educational material. Pt had O2 at discharge and was taken home with pt. Pt stable for discharge. IV removed, ID band removed, telemetry box removed
--- NOTE | 2018-10-07 16:05 | NUR ---
Social Service Note [facility]AM[facility] spoke with Tenisha at [facility] [phone] (p) [phone] (f). SW confirmed patient was accepted for service. Home Health will contact patient today to arrange date and time of assessment.
--- NOTE | 2018-10-10 08:19 | Discharge Summary ---
Discharge Summary Discharge Summary _ DATE OF ADMISSION: 10/01 DATE OF DISCHARGE: 10/07/2018 DISCHARGED BY: Dr. Yee REASON FOR ADMISSION: 58 years old female with past medical history of asthma, diabetes mellitus, hyperlipidemia, history of CVA with left hemiparesis, hypertension, obstructive sleep apnea, presented to the hospital with shortness of breath and worsening bilateral lower extremity edema. She denied chest pain. Patient denied nausea, vomiting, diarrhea or constipation. Patient denied fever or chills. Patient denied productive cough. Upon evaluation vital signs were stable. Pulse oximetry was 94% on room air. Laboratory work-up revealed no leukocytosis stable hemoglobin, and hematocrit. Stable electrolytes and renal parameters. Troponin negative. EKG revealed normal sinus rhythm, no acute ischemic changes. Pro BNP -6. Chest x-ray demonstrated reduced lung volumes with probably mild patchy bilateral infiltrates. In the emergency department patient received empiric antibiotic patient pancultured and admitted for further management. CONSULTANTS: prop sawyer Dr. Nelson pulmonary ID specialist Dr. Goldman recruitment assistant Dr. Layton [facility]: Patient admitted to telemetry floor. [employer] Dyer and product development ecologist closely followed. Serial troponin were negative. Echocardiogram revealed preserved ejection fraction of 55 to 60% with no evidence of left ventricular hypertrophy. No evidence of wall motion abnormality. Right ventricular systolic pressure of 41. Blood pressure was managed with RAYNE inhibitor and hydrochlorothiazide. Patient had chronic diastolic dysfunction. Maintenance dose of Lasix was continued. Volumes and cardiorenal parameters were closely monitored. Lipid panel revealed reveal elevated LDL 113, triglycerides 170. Patient counseled on low-fat low-cholesterol diabetic diet. Statin was continued. Per cardiology, dyspnea was probably due to COPD exacerbation. Lower extremity edema could be of venous insufficiency, however patient was on prednisone , which associated with water or sodium retention. Metrology Specialist closely followed. Patient is on prednisone with gradual tapering down. Pulmonary hygiene was optimized. The patient was mobilized as tolerated. Supplemental oxygen titrated as needed to keep pulse oximetry above 92%. Inhaler /Symbicort continued. Bronchodilator therapy [id number] and as needed provided. Antibiotics provided as per ID specialist recommendation. Sputum culture was negative. Blood culture revealed Staphylococcus epidermidis. Patient also noted to have vaginal yeast infection, likely due to antibiotic. Patient received 1 dose of fluconazole. Ceftriaxone and doxycycline were stopped. Bacteremia most likely real , as per ID specialist . Source could be skin cracks in her feet. Repeated blood culture for clearance were negative . An echocardiogram revealed no evidence of vegetation. Per ID specialist, patient can switch to oral Zyvox patient 600 mg every 12 hours for 2 weeks or continue IV vancomycin for 2 weeks from 10/04 , when blood culture confirmed clearance, if home health could be arranged. CT of the chest demonstrated mild basal atelectasis. Fatty liver. Small hiatal hernia. No pleural or pericardial effusion. No evidence of pneumonia. DVT prophylaxis provided. Patient was provided with CPAP 10 cm of water nightly. Weight loss , diet and exercise were discussed with patient extensively. Blood sugar was managed with the oral Januvia and Actos. Long-acting Levemir along with short acting NovoLog pre-meal were added to existing regimen as per recruitment assistant recommendation. Sliding scale of insulin was utilized as needed. Hemoglobin A1c - 10.7, clearly not at goal. Patient will need further optimization of anti-glycemic regimen as outpatient. Home health services were arranged prior to discharge. Patient was stable for discharge home with home health services. FINAL DIAGNOSES: Asthma with acute exacerbation Upper respiratory infection/tracheobronchitis versus early pneumonia Staph epidermidis bacteremia Obstructive sleep apnea , on CPAP Morbid obesity Chronic diastolic congestive heart failure Peripheral edema , likely related to chronic diastolic dysfunction Likely obesity hypoventilation syndrome Hypertension History of CVA with left hemiparesis Diabetes mellitus [id number], hemoglobin A1c -10.0 Mild pulmonary hypertension Vaginal yeast infection DISCHARGE MEDICATIONS: List of medication provided to patient. DISCHARGE INSTRUCTIONS: Patient was discharged home with home health services. Follow up with primary care provider in one week. I have been assigned to dictate discharge summary for this account. I was not involved in the patient's management. Lina Brantley NP Oct 10, 2018 08:19
== END 2018-10-07 15:30 | disposition home health service (06) | DRG 190 ==
LOC: EMR 22:59 → 2E 10-01 00:18 → EDBEDREQ 10-01 00:26
DX: J44.0 Chronic obstructive pulmonary disease with (acute) lower respiratory infection (principal); J18.9 Pneumonia, unspecified organism; J45.901 Unspecified asthma with (acute) exacerbation; Z68.43 Body mass index [BMI] 50.0-59.9, adult; I50.32 Chronic diastolic (congestive) heart failure; E66.2 Morbid (severe) obesity with alveolar hypoventilation; R78.81 Bacteremia; I69.954 Hemiplegia and hemiparesis following unspecified cerebrovascular disease affecting left non-dominant side; M79.7 Fibromyalgia; E11.65 Type 2 diabetes mellitus with hyperglycemia; E78.5 Hyperlipidemia, unspecified; I11.0 Hypertensive heart disease with heart failure; B37.3 Candidiasis of vulva and vagina; I27.20 Pulmonary hypertension, unspecified; J44.1 Chronic obstructive pulmonary disease with (acute) exacerbation; E88.81 Metabolic syndrome and other insulin resistance; G47.33 Obstructive sleep apnea (adult) (pediatric)
CPT/HCPCS: 36415; 71045; 71250; 80048; 80053; 80061; 80202; 82550; 82553; 82962; 83036; 83690; 83880; 84484; 85007; 85025; 87040; 87070; 87181; 87205; 93005; 93306; 94640; 94660; 94664; 96365; 96375; 99285; J1815; J7620; S5561